=== PATIENT | female | born 1940 | race Caucasian/White ===

== ENCOUNTER → 2022-04-09 12:33 | Outpatient (BNVA) | payer MEDICARE, SELFPAY | PROVIDERS: PCP Family Medicine; Visit Provider Internal Medicine Endocrinology, Diabetes & Metabolism | DX: M81.0 Age-related osteoporosis without current pathological fracture (principal) | CPT/HCPCS: 99202 ==

== ENCOUNTER 2022-08-03 19:14 | Inpatient (IN) | payer OTHER, SELFPAY ==
--- OUTSIDE RECORDS SUMMARY | 2022-08-03 19:23 | XMS_ITS | Continuity of Care Document ---
:1940 Author Organization [facility] Address [address] [place] [address]- Care Team Providers Name Role Phone Radha ARMENDARIZ, Christian Primary Care Physician [place] [facility] [place]/25/21 - 08/28/[address] [address] Discharge Disposition: A-Transfer VNA/Home Health Attending Physician: Alyx Rutherford MD Admitting Physician: Romulo Vincent MD Referring Physician: Not on Staff, Referring MD Allergies, Adverse Reactions, Alerts Substance Reaction Severity Status codeine Active morphine1 Unavailable Active Vioxx Active Chocolate2 Active Other Food Allergy3 Active traMADol Active 1pt states allergy to [id number] and Butter - causes diarrhea Immunizations Given and Recorded Vaccine Date Status Refusal Reason SARS-CoV-2 (COVID-19) mRNA BNT-162b2 vac 07/31/20 Recorde d influenza virus vaccine, inactivated 04/27/17 Recorded influenza virus vaccine, inactivated 03/10/16 Recorded influenza virus vaccine, inactivated 03/29/14 Recorded influenza virus vaccine, inactivated 04/06/12 Recorded influenza virus vaccine, inactivated 04/08/11 Recorded influenza virus vaccine, inactivated 04/01/10 Recorded influenza virus vaccine, inactivated 04/13/08 Recorded pneumococcal 23-valent vaccine 05/08/15 Recorded Medications Azopt 1% ophthalmic suspension 1 drops, Eyes, Both, 3 times a day, 0 Refills, Maintenance, 10/03/18 21:37:27 EDT, Suspension Start Date: 10/03/18 Status: Orderedbrimonidine 0.025% ophthalmic solution 1 drops, Every 8 hours, PRN as needed, BOTH EYES, 0 Refills, Maintenance, 11/01/20 11:54:00 EDT, Solution, ; Start Date: 11/01/20 Status: Orderedcalcium-vitamin D 600 mg-400 intl units oral tablet TAKE ONE TABLET BY MOUTH DAILY Start Date: 08/26/21 Status: OrderedCombivent Respimat 20 mcg-100 mcg/inh inhalation aerosol 1 puffs, Inhalation, 4 times a day, PRN Wheezing/Shortness of Breath, Maintenance, 08/27/21 10:44:00EST, Aerosol, ; Start Date: 08/27/21 Status: OrderedDaily Gertrudis oral tablet 1 tablet, By Mouth, Daily, 0 Refills, Maintenance, 06/05/19 19:46:34 EST Start Date: 06/05/19 Status: OrderedDaily Gertrudis oral tablet 1 tablet, By Mouth, Daily, Maintenance, 08/27/21 10:52:00 EST, Tablet, ; Start Date: 08/27/21 Status: OrderedDilantin Infatabs 50 mg oral tablet, chewable 1 tablet = 50 mg, By Mouth, 2 times a day, Maintenance, 08/27/21 10:47:00 EST, Chew Tablet, ; Start Date: 08/27/21 Status: Ordereddivalproex sodium 250 mg oral enteric coated tablet 1 tablet = 250 mg, By Mouth, 2 times a day Start Date: 08/26/21 Status: Ordereddivalproex sodium 500 mg oral enteric coated tablet = 500 mg, By Mouth, 2 times a day, 0 Refills, Maintenance, 11/17/20 8:34:00 EDT, Tablet, ; Start Date: 11/17/20 Status: Orderedenoxaparin 80 mg/0.8 mL injectable solution = 80 mg, Subcutaneous Injection, Daily in AM Start Date: 08/26/21 Status: Orderedesomeprazole 20 mg oral enteric coated capsule TAKE ONE CAPSULE BY MOUTH EVERY DAY Start Date: 08/26/21 Status: Orderedfamotidine 20 mg oral tablet TAKE ONE TABLET BY MOUTH EVERY DAY DIRECTED Start Date: 08/26/21 Status: OrderedFlovent HFA 110 mcg/inh inhalation aerosol 2 puffs, Inhalation, 2 times a day, day Start Date: 08/26/21 Status: Orderedfluticasone 50 mcg/inh nasal spray 2 sprays, Nares, Both, Daily in AM, Maintenance, 08/27/21 10:50:00 EST, [place], ; Start Date: 08/27/21 Status: Orderedgabapentin 300 mg oral capsule 300 mg, 1, capsule, By Mouth, 3 times a day, # 90 capsule, Refills 5, Tot. Refills 5, Maintenance, 08/28/21 15:45:00 EST, Route to Pharmacy Electronically, [facility], Partial fill upon patient request if the prescription is for a schedu... Start Date: 08/28/21 Status: Orderedlatanoprost 0.005% ophthalmic solution 1 drops, Eyes, Both, Daily at bedtime, 0 Refills, Maintenance, 05/30/17 21:19:19 EST, Ophth Solution Start Date: 05/30/17 Status: Orderedlevothyroxine 150 mcg (0.15 mg) oral tablet 1 tablet = 150 mcg, By Mouth, Daily, 0 Refills, Maintenance, 12/23/13 11:51:23 EDT Start Date: 12/23/13 Status: Orderedlidocaine 5% topical film See Instructions, Topically Daily, # 30 patch, 0 Refills, Maintenance, 11/01/20 11:58:00 EDT, Patch,[facility], Topically Daily, 158, cm, 11/01/20 4:35:00 EDT, Height, 56.1, kg, 211:40:00 EDT, Dry Weight Start Date: 11/01/20 Status: Orderedloperamide 2 mg oral capsule 2 mg, 1, capsule, By Mouth, Daily, PRN, Refills 0, Maintenance, Loose Stool, 06/05/19 19:47:12 EST Start Date: 06/05/19 Status: OrderedNeurontin 100 mg oral capsule 200 mg, Capsule, By Mouth, 08/28/21 15:00:00 EST Start Date: 08/28/21 Stop Date: 08/28/21 Status: CompletedNeurontin 100 mg oral capsule 200 mg, Capsule, By Mouth, 08/28/21 9:00:00 EST Start Date: 08/28/21 Stop Date: 08/28/21 Status: CompletedrisperiDONE 0.5 mg oral tablet 0.5 mg, 1, tablet, By Mouth, 2 times a day Start Date: 08/26/21 Status: OrderedTylenol Extra Strength 500 mg oral tablet 1 tablet = 500 mg, By Mouth, Every 8 hours, # 50 tablet, 0 Refills, Maintenance, 08/28/21 15:41:00 EST, Tablet, [facility], Partial fill upon patient request if the prescription is for a schedule II opioid drug., 158, cm, 08/28/21 11:42:... Start Date: 08/28/21 Stop Date: 09/04/21 Status: OrderedVitamin B-12 1000 mcg oral tablet 1,000 mcg, 1, tablet, By Mouth, Daily, Refills 0, Maintenance, 06/05/19 19:46:01 EST Start Date: 06/05/19 Status: OrderedVitamin D3 1000 intl units oral capsule 1 capsule = 1,000 International_Units, By Mouth, Daily, 0 Refills, Maintenance, 06/05/19 19:48:40 EST Start Date: 06/05/19 Status: Ordered Problem List Condition Effective Dates Status Health Status Informant bipolar disorder with paranoid Active delusion(Confirmed) Epilepsy(Confirmed) Active epilepsy(Confirmed) Active Hypothyroidism(Confirmed) Active hypothyroidism(Confirmed) Active pulmonary embolus(Confirmed) Active Urinary retention(Confirmed) Active Underweight(Confirmed) Active urinary retention(Confirmed) Active Results Radiology Reports Exam Date Time Procedure Performing Provider Status 08/25/21 6:26 PM Chest 2 Views Frontal and Lat Jcarlos Quiñonez; Au th (Verified) Notes:(Chest 2 Views Frontal and Lat) Reason For Exam: Shortness of Breath RESULT: Chest 2 Views Frontal and Lat Chest 2 Views Frontal and Lat Hx of Present Illness: pt c o 10 10 cp that radiates to left arm and back x4days with some dyspnea on exertion; Reason: Shortness of Breath; Clinical Question(s): CHF COMPARISON: 06/05/2021 FINDINGS: LINES AND TUBES: None. LUNGS AND PLEURA: Clear lungs. Normal pulmonary vascularity. No pleural effusion. No pneumothorax. HEART, MEDIASTINUM AND PEREZ: Heart is normal in size. Normal upper mediastinal and hilar contour. BONES AND SOFT TISSUES: No acute abnormality. IMPRESSION: No acute abnormality. WSN: [id number] Ordering Physician: Nat Vargas Dictated By: Cain Almanzar MD Dictated Date/Time: 08/25/21 6:28 pm Reviewed By: Cain Almanzar MD Signed By: Cain Almanzar MD Signed Date/Time: 08/25/21 6:28 pm Transcribed By: ASHLEY Transcribed Date/Time: 08/25/21 6:28 pm Vital Signs Most recent to oldest 1 2 3 [Reference Range]: Height 158 cm 158 cm 158 cm (08/28/21 11:42 AM) (08/28/21 6:44 AM) (08/27/21 10 :41 PM) Weight 45 kg (08/26/21 12:32 PM) Oxygen Saturation [94-100 %] 95 % 97 % 97 % (08/28/21 11:42 AM) (08/28/21 6:44 AM) (08/27/21 10 :41 PM) Pulse Rate [55-90 bpm] 77 bpm 71 bpm 79 bpm (08/28/21 11:42 AM) (08/28/21 6:44 AM) (08/27/21 10 :41 PM) Body Mass Index [18.5-24.99] 18.26 *L* (08/26/21 12:32 PM) Blood Pressure [90-138/55-84 107/46 mm Hg 110/60 mm Hg 119 /71 mm Hg mm Hg] (08/28/21 11:42 AM) (08/28/21 6:44 AM) (08/27/21 10 :41 PM) Respiratory Rate [16-30 18 br/min 18 br/min 18 br/mi n br/min] (08/28/21 4:03 PM) (08/28/21 11:42 AM) (08/28/21 7: 47 AM) Temperature [96.8-100.4 97.8 DegF 97.5 DegF 97.2 Deg F DegF] (08/28/21 11:42 AM) (08/28/21 6:44 AM) (08/27/21 10 :41 PM) Mode of Delivery (Oxygen) Room air Room air Room a ir (08/28/21 11:42 AM) (08/28/21 6:44 AM) (08/27/21 10 :41 PM) Blood pressure sites Arm, right Arm, left Arm, left (08/28/21 11:42 AM) (08/28/21 6:44 AM) (08/27/21 10 :41 PM) Temperature Route Oral Oral Oral (08/28/21 11:42 AM) (08/28/21 6:44 AM) (08/27/21 10 :41 PM) Dry Weight 45 kg (08/26/21 12:32 PM) Social History Social History Type Response Smoking Status Never smoker entered on: 05/31/17 Sex Female
--- OUTSIDE RECORDS SUMMARY | 2022-08-03 19:23 | XMS_ITS | Continuity of Care Document ---
:1940 Author Organization [facility] Address [address] [place] [address]- Care Team Providers Name Role Phone Justo ARMENDARIZ, Vega Reid Primary Care Physician Encounter [facility] [place] Date(s): 01/29/21 - 02/28/21 [facility] [address] [place], [place] [address] Attending Physician: Ian Bo Admitting Physician: AdmtrIan Referring Physician: AdmtrIan Allergies, Adverse Reactions, Alerts Substance Reaction Severity Status codeine Active morphine1 Unavailable Active Vioxx Active traMADol Active 1pt states allergy to narcotics Medications acetaminophen 325 mg oral tablet 650 mg, By Mouth, Every 6 hours, PRN, /Headache, Refills 0, Maintenance, Pain , Mild, 10/12/18 11:12:08 EDT Start Date: 10/12/18 Status: OrderedAzopt 1% ophthalmic suspension 1 drops, Eyes, Both, 3 times a day, # 15 mL, 0 Refills, Maintenance, 10/03/18 21:37:27 EDT, Suspension Start Date: 10/03/18 Status: Orderedbrimonidine 0.025% ophthalmic solution 1 drops, Eye, Left, Every 8 hours, PRN as needed, # 7.5 mL, 0 Refills, Maintenance, 11/01/20 11:54:00 EDT, Solution, Partial fill upon patient request if the prescription is for a schedule II opioid drug. Start Date: 11/01/20 Status: OrderedCombivent Respimat 20 mcg-100 mcg/inh inhalation aerosol 1 puffs, Inhalation, 4 times a day, # 4 Gm, 0 Refills, Maintenance, 11/01/20 11:52:00 EDT, Aerosol, Partial fill upon patient request if the prescription is for a schedule II opioid drug. Start Date: 11/01/20 Status: OrderedDaily Gertrudis oral tablet By Mouth, Daily, 0 Refills, Maintenance, 06/05/19 19:46:34 EST Start Date: 06/05/19 Status: Ordereddivalproex sodium 250 mg oral enteric coated tablet = 250 mg, By Mouth, Daily at bedtime, 0 Refills, Maintenance, 11/17/20 8:34:00 EDT, Tablet, Partial fill upon patient request if the prescription is for a schedule II opioid drug. Start Date: 11/17/20 Status: Ordereddivalproex sodium 500 mg oral enteric coated tablet = 500 mg, By Mouth, 2 times a day, 0 Refills, Maintenance, 11/17/20 8:34:00 EDT, Tablet, Partial fill upon patient request if the prescription is for a schedule II opioid drug. Start Date: 11/17/20 Status: Orderedduloxetine 20 mg oral enteric coated capsule 1 capsule = 20 mg, By Mouth, Daily at bedtime, # 30 capsule, 0 Refills, Maintenance, 06/14/19 12:22:57 EST, Capsule, 160, cm, 06/14/19 7:21:40 EST, Height, 55.7, kg, 06/06/19 0:06:46 EST, Dry Weight Start Date: 06/14/19 Status: OrderedFlovent 110 mcg Inhaler HFA 1, puffs, Inhalation, 2 times a day, PRN, Refills 0, Maintenance, 11/01/20 11:48:00 EDT, Inhaler Start Date: 11/01/20 Status: Orderedfluticasone furoate 50 mcg inhalation powder 1 puffs = 50 mcg, Inhalation, Every 24 hours, rinse mouth and throat after use, # 90 each, 0 Refills, Maintenance, 11/01/20 11:48:00 EDT, Powder, Partial fill upon patient request if the prescription is for a schedule II opioid drug. Start Date: 11/01/20 Status: Orderedlatanoprost 0.005% ophthalmic solution 1 drops, Eyes, Both, Daily at bedtime, # 3 mL, 0 Refills, Maintenance, 05/30/17 21:19:19, Ophth Solution Start Date: 05/30/17 Status: Orderedlevothyroxine 150 mcg (0.15 mg) oral tablet 1 tablet = 150 mcg, By Mouth, Daily, 0 Refills, Maintenance, 12/23/13 11:51:23 Start Date: 12/23/13 Status: Orderedlidocaine 5% topical film See Instructions, Topically Daily, # 30 patch, 0 Refills, Maintenance, 11/01/20 11:58:00 EDT, Patch,[facility], Topically Daily, 158, cm, 11/01/20 4:35:00 EDT, Height, 56.1, kg, :40:00 EDT, Dry Weight Start Date: 11/01/20 Status: Orderedloperamide 2 mg oral capsule 2 mg, 1, capsule, By Mouth, Daily, PRN, Refills 0, Maintenance, Loose Stool, 06/05/19 19:47:12 EST Start Date: 06/05/19 Status: OrderedNeurontin 100 mg oral capsule See Instructions, 2 tablets in the morning 2 tablets in the evening 1 tablet at night, # 1 each, Refills 0, Tot. Refills 0, Maintenance, 10/12/18 11:12:24 EDT, Instructions Replace Required Details, Print Requisition Start Date: 10/12/18 Status: OrderedPhenytoin Tablet 150 mg, Chew, 2 times a day, Refills 0, Maintenance, 10/03/18 21:36:09 EDT Start Date: 10/03/18 Status: OrderedrisperiDONE 1 mg oral tablet 1 mg, 1, tablet, By Mouth, Daily in AM, Refills 0, Maintenance, 11/17/20 8:35:00 EDT, Partial fill upon patient request if the prescription is for a schedule II opioid drug. Start Date: 11/17/20 Status: OrderedrisperiDONE 1 mg oral tablet 2 mg, 2, tablet, By Mouth, Daily at bedtime, Refills 0, Maintenance, 11/17/20 8:35:00 EDT, Partial fill upon patient request if the prescription is for a schedule II opioid drug. Start Date: 11/17/20 Status: OrderedVitamin B-12 1000 mcg oral tablet [...] Active pulmonary embolus(Confirmed) Active Urinary retention(Confirmed) Active urinary retention(Confirmed) Active Social History Social History Type Response Smoking Status Never smoker entered on: 05/31/17 Sex Female
--- OUTSIDE RECORDS SUMMARY | 2022-08-03 19:23 | XMS_ITS | Continuity of Care Document ---
:1940 Author Organization [facility] Address [address] [place] [address]- Care Team Providers Name Role Phone Justo ARMENDARIZ, Vega Reid Primary Care Physician [place] [facility] [place] 12/[place]20 - 02/28/21 [facility] [address] [place], [place] [address] Attending Physician: Dayday Jacobsen MD Admitting Physician: Dayday Jacobsen MD Referring Physician: Floridalma MACHINIST, Maya Hurst Allergies, Adverse Reactions, Alerts Substance Reaction Severity Status codeine Active morphine1 Unavailable Active traMADol Active Vioxx Active 1pt states allergy to narcotics Medications [...] patch, 0 Refills, Maintenance, 11/01/20 11:58:00 EDT, Patch,[facility], Topically Daily, 158, cm, [...]
--- OUTSIDE RECORDS SUMMARY | 2022-08-03 19:23 | XMS_ITS | Continuity of Care Document ---
:1940 Author Organization [facility] Address Unavailable , Care Team Providers Name Role Phone Radha ARMENDARIZ, Christian Primary Care Physician Encounter [facility] [place] Date(s): 09/25/21 - 10/25/21 [facility] Allergies, Adverse Reactions, Alerts Substance Reaction Severity Status codeine Active morphine1 Unavailable Active Vioxx Active Chocolate2 Active Other Food Allergy3 Active traMADol Active 1pt states allergy to [id number] and Butter - causes diarrhea Immunizations Given [...] day Start Date: 08/26/21 Status: Ordereddivalproex sodium 250 mg oral enteric coated tablet 1 tablet = 250 mg, By Mouth, Daily at supper, # 7 tablet, 0 Refills, Maintenance, 10/12/21 11:35:00 EDT, EC Tablet, [facility], Partial fill upon patient request if the prescription is for a schedule II opioid drug., 158, cm, 08/28/21 11:42:... Start Date: 10/12/21 Stop Date: 10/19/21 Status: Ordereddivalproex sodium 500 mg oral enteric [...] Daily in AM, Maintenance, 08/27/21 10:50:00 EST, [place], ; Start Date: 08/27/21 Status: Orderedgabapentin 300 mg oral capsule 300 mg, 1, capsule, By Mouth, 3 times a day, # 90 capsule, Refills 5, Tot. Refills 5, Maintenance, 08/28/21 15:45:00 EST, Route to Pharmacy Electronically, [facility], Partial fill upon patient request if [...] patch, 0 Refills, Maintenance, 11/01/20 11:58:00 EDT, Patch,[facility], Topically Daily, 158, cm, 11/01/20 4:35:00 EDT, Height, 56.1, kg, :40:00 EDT, Dry Weight Start Date: 11/01/20 Status: Orderedloperamide 2 mg oral capsule 2 mg, 1, capsule, By Mouth, Daily, PRN, Refills 0, Maintenance, Loose Stool, 06/05/19 19:47:12 EST Start Date: 06/05/19 Status: Orderedphenytoin 50 mg oral tablet, chewable 3 tablet = 150 mg, By Mouth, 2 times a day, # 42 tablet, 0 Refills, Maintenance, 10/12/21 11:36:00 EDT, Chew Tablet, [facility], Partial fill upon patient request if the prescription is for aschedule II opioid drug., 158, cm, 08/28/21 11:42... Start Date: 10/12/21 Stop Date: 10/19/21 Status: OrderedrisperiDONE 0.5 mg oral tablet 0.5 mg, 1, tablet, By Mouth, 2 times a day Start Date: 08/26/21 Status: OrderedTylenol Extra Strength 500 mg oral tablet 1 tablet = 500 mg, By Mouth, Every 8 hours, # 50 tablet, 0 Refills, Maintenance, 08/28/21 15:41:00 EST, Tablet, [facility], Partial fill upon patient request if [...] retention(Confirmed) Active Underweight(Confirmed) Active urinary retention(Confirmed) Active Social History Social History Type Response Smoking Status Never smoker entered on: 05/31/17 Sex Female
--- OUTSIDE RECORDS SUMMARY | 2022-08-03 19:23 | XMS_ITS | Continuity of Care Document ---
:1940 Author Organization [facility] Address [address] [place] [address]- Care Team Providers Name Role Phone Christian Garcia MD Primary Care Physician Encounter [facility] [place] Date(s): 06/12/21 - 07/12/21 [facility] [address] [place], [place] [id number]- Attending Physician: Ian Bo Admitting Physician: Ian Bo Referring Physician: Ian Bo Allergies, Adverse Reactions, Alerts Substance Reaction Severity Status codeine Active aspirin Active morphine1 Unavailable Active traMADol Active Vioxx [...] EST, Dry Weight Start Date: 06/14/19 Status: Orderedenoxaparin 80 mg/0.8 mL injectable solution 0.8 mL = 80 mg, Subcutaneous Injection, Daily, # 16.8 mL, 0 Refills, Maintenance, 05/29/21 11:23:00 EST, Solution, Partial fill upon patient request if the prescription is for a schedule II opioid drug. Start Date: 05/29/21 Stop Date: 06/19/21 Status: OrderedFlovent 110 mcg Inhaler HFA 1, [...] patch, 0 Refills, Maintenance, 11/01/20 11:58:00 EDT, Patch,[facility], Topically Daily, 158, [...] Requisition Start Date: 10/12/18 Status: OrderedPhenytoin Tablet 200 mg, Chew, 2 times a day, Refills [...]
--- OUTSIDE RECORDS SUMMARY | 2022-08-03 19:23 | XMS_ITS | Continuity of Care Document ---
:1940 Author Organization [facility] Address [address] [place] [address]- Care Team Providers Name Role Phone Christian Garcia MD Primary Care Physician Encounter [facility] [place] Date(s): 10/12/21 - 10/12/[address] [address]- Encounter Diagnosis Medication refill (Final) - 10/12/21 Discharge Disposition: A-D/C Home Attending Physician: Melida Aquino MD Admitting Physician: Melida Aquino MD Referring Physician: Not on Staff, Referring MD Allergies, Adverse Reactions, Alerts Substance Reaction Severity Status codeine Active morphine1 Unavailable Active traMADol Active Vioxx Active Chocolate2 Active Other Food Allergy3 Active 1pt states allergy to [id number] and Butter - causes diarrhea Immunizations Given [...] Refills, Maintenance, 10/12/21 11:35:00 EDT, EC Tablet, [facility], Partial fill upon patient request if [...] Daily in AM, Maintenance, 08/27/21 10:50:00 EST, [place], ; Start Date: 08/27/21 Status: Orderedgabapentin 300 mg oral capsule 300 mg, 1, capsule, By Mouth, 3 times a day, # 90 capsule, Refills 5, Tot. Refills 5, Maintenance, 08/28/21 15:45:00 EST, Route to Pharmacy Electronically, [facility], Partial fill upon patient request if [...] patch, 0 Refills, Maintenance, 11/01/20 11:58:00 EDT, Patch,[facility], Topically Daily, 158, cm, 11/01/20 4:35:00 EDT, Height, 56.1, kg, 10/31/211:40:00 EDT, Dry Weight Start Date: 11/01/20 Status: Orderedloperamide 2 mg oral capsule 2 mg, 1, capsule, By Mouth, Daily, PRN, Refills 0, Maintenance, Loose Stool, 06/05/19 19:47:12 EST Start Date: 06/05/19 Status: Orderedphenytoin 50 mg oral tablet, chewable 3 tablet = 150 mg, By Mouth, 2 times a day, # 42 tablet, 0 Refills, Maintenance, 10/12/21 11:36:00 EDT, Chew Tablet, [facility], Partial fill upon patient request if [...] 0 Refills, Maintenance, 08/28/21 15:41:00 EST, Tablet, [facility], Partial fill upon patient request [...] retention(Confirmed) Active Underweight(Confirmed) Active urinary retention(Confirmed) Active Vital Signs Most recent to oldest 1 2 3 [Reference Range]: Oxygen Saturation [94-100 %] 99 % 100 % 100 % (10/12/21 2:57 PM) (10/12/21 12:01 PM) (10/12/21 9: 17 AM) Pulse Rate [55-90 bpm] 67 bpm 70 bpm 76 bpm (10/12/21 2:57 PM) (10/12/21 12:01 PM) (10/12/21 9: 17 AM) Blood Pressure [90-138/55-84 124/62 mm Hg 136/69 mm Hg 126 /57 mm Hg mm Hg] (10/12/21 2:57 PM) (10/12/21 12:01 PM) (10/12/21 9: 17 AM) Respiratory Rate [16-30 17 br/min 18 br/min 16 br/mi n br/min] (10/12/21 2:57 PM) (10/12/21 12:01 PM) (10/12/21 9: 17 AM) Temperature [96.8-100.4 DegF] 97.9 DegF 98.2 DegF (10/12/21 12:01 PM) (10/12/21 9:17 AM) Mode of Delivery (Oxygen) Room air Room air Room a ir (10/12/21 2:57 PM) (10/12/21 12:01 PM) (10/12/21 9: 17 AM) Blood pressure sites Arm, right (10/12/21 12:01 PM) Temperature Route Oral Oral (10/12/21 12:01 PM) (10/12/21 9:17 AM) Social History Social History Type Response Smoking Status Never smoker entered on: 05/31/17 Sex Female
--- OUTSIDE RECORDS SUMMARY | 2022-08-03 19:23 | XMS_ITS | Continuity of Care Document ---
:1940 Author Organization [facility] Address [address] [place] [address]- Care Team Providers Name Role Phone Christian Garcia MD Primary Care Physician Encounter [facility] [place] Date(s): 04/11/21 - 06/20/21 [facility] [address] [place], [place] [address] Attending Physician: Christian Garcia MD Admitting Physician: Christian Garcia MD Referring Physician: Christian Garcia MD Allergies, Adverse Reactions, Alerts Substance Reaction [...] 0 Refills, Maintenance, 11/01/20 11:58:00 EDT, Patch,[facility], Topically Daily, 158, cm, 11/01/20 4:35:00 [...]
--- OUTSIDE RECORDS SUMMARY | 2022-08-03 19:23 | XMS_ITS | Continuity of Care Document ---
:1940 Author Organization [facility] Address Unavailable , Care Team Providers Name Role Phone Christian Garcia MD Primary Care Physician [id number] Date(s): 06/27/21 - 11/27/21 [facility] Attending Physician: Severo Turcios Admitting Physician: Severo Turcios Referring Physician: Christian Garcia MD Allergies, Adverse Reactions, Alerts Substance Reaction Severity Status codeine Active morphine1 Unavailable Active Vioxx Active Chocolate2 Active Other Food Allergy3 Active traMADol Active 1pt states allergy to vwrahkltb1Jrananof3Twthvbxse and Butter - causes diarrhea Immunizations Given [...] Refills, Maintenance, 10/12/21 11:35:00 EDT, EC Tablet, [facility], Partial fill upon patient request if the [...] Daily in AM, Maintenance, 08/27/21 10:50:00 EST, [place], ; Start Date: 08/27/21 Status: Orderedgabapentin 300 mg oral capsule 300 mg, 1, capsule, By Mouth, 3 times a day, # 90 capsule, Refills 5, Tot. Refills 5, Maintenance, 08/28/21 15:45:00 EST, Route to Pharmacy Electronically, [facility], Partial fill upon patient [...] patch, 0 Refills, Maintenance, 11/01/20 11:58:00 EDT, Patch,[facility], Topically Daily, 158, cm, [...] Refills, Maintenance, 10/12/21 11:36:00 EDT, Chew Tablet, [facility], Partial fill upon patient request if the [...] 0 Refills, Maintenance, 08/28/21 15:41:00 EST, Tablet, [facility], Partial fill upon patient request if [...]
--- OUTSIDE RECORDS SUMMARY | 2022-08-03 19:23 | XMS_ITS | Continuity of Care Document ---
:1940 Author Organization [facility] Address [address] [place] [address]- Care Team Providers Name Role Phone Justo ARMENDARIZ, Vega Reid Primary Care Physician Encounter [facility] [place] Date(s): 11/10/20 - 11/11/[address] [address]- Discharge Disposition: A-D/C Home Attending Physician: Leah Najera MD Admitting Physician: Leah Najera MD Referring Physician: Not on Staff, Referring [...] 250 mg, By Mouth, 2 times a day, Take with 500 mg tab QHS, # 30 tablet, 0 Refills, Maintenance, 10/12/18 11:10:03 EDT, Tablet Start Date: 10/12/18 Status: Ordereddivalproex sodium 500 mg oral enteric coated tablet = 500 mg, By Mouth, 2 times a day, # 60 tablet, 0 Refills, Maintenance, 10/12/18 11:08:54 EDT, Tablet Start Date: 10/12/18 Status: Orderedduloxetine 20 mg oral enteric coated capsule 1 capsule = 20 mg, By Mouth, Daily at bedtime, # 30 capsule, 0 Refills, Maintenance, 06/14/19 12:22:57 EST, Capsule, 160, cm, 06/14/19 7:21:40 EST, Height, 55.7, kg, 06/06/19 0:06:46 EST, Dry Weight Start Date: 06/14/19 Status: Orderedenoxaparin 80 mg/0.8 mL injectable solution 0.8 mL = 80 mg, Subcutaneous Injection, Every 24 hours, for 12 week(s), # 67.2 mL, 0 Refills, Acute 01/24/21 11:59:00 EDT, 11/01/20 11:59:00 EDT, Injection, [facility], Partial fill upon patient request if the prescription is for a sched... Start Date: 11/01/20 Stop Date: 01/24/21 Status: OrderedFlovent 110 mcg Inhaler HFA 1, [...] patch, 0 Refills, Maintenance, 11/01/20 11:58:00 EDT, Patch,[facility], Topically Daily, 158, cm, 11/01/20 [...] 10/03/18 21:36:09 EDT Start Date: 10/03/18 Status: OrderedRisperDAL 0.5 mg oral tablet See Instructions, 1 tab QAM and 2 tab QHS, # 100 tablet, Refills 0, Tot. Refills 0, Maintenance, 06/14/19 12:19:40 EST, Instructions Replace Required Details, Route to Pharmacy Electronically, [facility]/pharmacy #[id number], 160, cm, 06/14/19 7:21:40 EST, Height,... Start Date: 06/14/19 Status: OrderedrisperiDONE 1 mg oral tablet 1 mg, 1, tablet, By Mouth, Daily in AM, # 30 tablet, Refills 1, Tot. Refills 1, Maintenance, 11/11/20 14:25:00 EDT, Route to Pharmacy Electronically, [facility], Partial fill upon patient request if the prescription is for a schedule II opio... Start Date: 11/11/20 Status: OrderedrisperiDONE 1 mg oral tablet 2 mg, 2, tablet, By Mouth, Daily at bedtime, # 60 tablet, Refills 1, Tot. Refills 1, Maintenance, 11/11/20 14:25:00 EDT, Route to Pharmacy Electronically, [facility], Partial fill upon patient request if the prescription is for a schedule II... Start Date: 11/11/20 Status: OrderedVitamin B-12 1000 mcg oral tablet 1,000 mcg, 1, tablet, By Mouth, Daily, Refills 0, Maintenance, 06/05/19 19:46:01 EST Start Date: 06/05/19 Status: OrderedVitamin D3 1000 intl units oral capsule 1 capsule = 1,000 International_Units, By Mouth, Daily, 0 Refills, Maintenance, 06/05/19 19:48:40 EST Start Date: 06/05/19 Status: Ordered Problem List Condition Effective Dates Status Health Status Informant Epilepsy(Confirmed) Active Hypothyroidism(Confirmed) Active Urinary retention(Confirmed) Active Results Radiology Reports Exam Date Time Procedure Performing Provider Status 11/10/20 1:34 PM Chest 2 Views Frontal and Lat Cinthya Grayson ; Auth (Verified) Notes:(Chest 2 Views Frontal and Lat) Reason For Exam: Pleuritic PainRESULT: Chest 2 Views Frontal and Lat Chest 2 Views Frontal and Lat HX OF PRESENT ILLNESS: Pt sts that she has bins in her apartment which the maintenance people comeand put chemicals or mouse traps in. She sts this gives her intermittent episodes of SOB and dizziness. Denies any symptoms at this time.; Reason: Pleuritic Pain; Clinical Question(s): Pleural Effusion/ Pleural Effusion COMPARISON: 11/08/2020 FINDINGS: LINES AND TUBES: None. LUNGS AND PLEURA: Clear lungs. Normal pulmonary vascularity. No pleural effusion. No pneumothorax. HEART, MEDIASTINUM AND PEREZ: Heart is normal in size. Mildly tortuous and calcified aorta. BONES AND SOFT TISSUES: No acute abnormality. IMPRESSION: No evidence of acute abnormality. WSN: [id number] Ordering Physician: Graham Denson Dictated By: Simon Roy MD Dictated Date/Time: 11/10/20 1:43 pm Reviewed By: Simon Roy MD Signed By: Simon Roy MD Signed Date/Time: 11/10/20 1:43 pm Transcribed By: ASHLEY Transcribed Date/Time: 11/10/20 1:43 pm Vital Signs Most recent to oldest 1 2 3 [Reference Range]: Oxygen Saturation [94-100 %] 99 % 98 % 99 % (11/11/20 4:20 PM) (11/11/20 12:30 PM) (11/11/20 8: 18 AM) Pulse Rate [55-90 bpm] 82 bpm 72 bpm 72 bpm (11/11/20 4:20 PM) (11/11/20 12:30 PM) (11/11/20 8: 18 AM) Blood Pressure [90-138/55-84 112/58 mm Hg 116/62 mm Hg 110 /58 mm Hg mm Hg] (11/11/20 4:20 PM) (11/11/20 12:30 PM) (11/11/20 8: 18 AM) Respiratory Rate [16-30 16 br/min 16 br/min 13 br/mi n br/min] (11/11/20 4:20 PM) (11/11/20 12:30 PM) *L* (11/11/20 8:18 AM ) Temperature [96.8-100.4 DegF] 97.9 DegF 97.7 DegF 98 .5 DegF (11/11/20 8:18 AM) (11/10/20 11:37 PM) (11/10/20 12:2 1 PM) Mode of Delivery (Oxygen) Room air Room air Room a ir (11/11/20 4:20 PM) (11/11/20 12:30 PM) (11/11/20 8: 18 AM) Blood pressure sites Arm, left Arm, left Arm, left (11/11/20 4:20 PM) (11/11/20 12:30 PM) (11/11/20 8: 18 AM) Temperature Route Oral Axillary Oral (11/11/20 8:18 AM) (11/10/20 11:37 PM) (11/10/20 12:2 1 PM) Weight Obtained Via UTO (11/10/20 12:26 PM) Dry Weight Obtained Via UTO (11/10/20 12:26 PM) Social History Social History Type Response Smoking Status Never smoker entered on: 05/31/17 Sex Female
--- OUTSIDE RECORDS SUMMARY | 2022-08-03 19:23 | XMS_ITS | Continuity of Care Document ---
:1940 Author Organization [facility] Address [address] [place] [address]- Care Team Providers Name Role Phone Christian Garcia MD Primary Care Physician Encounter [facility] [place] Date(s): 04/25/21 - 04/26/[address] [address]- Encounter Diagnosis Abdominal pain (Final) - 04/26/21 Discharge Disposition: A-D/C Home Attending Physician: Ara Nichole MD Admitting Physician: Ara Nichole MD Referring Physician: Not on Staff, Referring [...] II opioid drug. Start Date: 11/01/20 Status: Orderedgabapentin 100 mg oral capsule 200 mg, Capsule, By Mouth, Once, Routine, 04/26/21 20:00:00 EDT, Stop date 04/26/21 20:00:00 EDT Start Date: 04/26/21 Stop Date: 04/26/21 Status: Completedlatanoprost 0.005% ophthalmic solution 1 drops, Eyes, Both, [...] patch, 0 Refills, Maintenance, 11/01/20 11:58:00 EDT, Patch,[facility], Topically Daily, 158, cm, 11/01/20 4:35:00 [...] Active Urinary retention(Confirmed) Active urinary retention(Confirmed) Active Results Radiology Reports Exam Date Time Procedure Performing Provider Status 04/26/21 12:30 PM Chest 2 Views Frontal and Lat Evert Avelar da; Auth (Verified) Notes:(Chest 2 Views Frontal and Lat) Reason For Exam: AnginaRESULT: Chest 2 Views Frontal and Lat Chest 2 Views Frontal and Lat Hx of Present Illness: pt complains fo epigastric chest pain 3 days, COMPARISON: 11/13/2020 FINDINGS: LINES AND TUBES: None. LUNGS AND PLEURA: Clear lungs. Normal pulmonary vascularity. No pleural effusion. No pneumothorax. HEART, MEDIASTINUM AND PEREZ: Heart is normal in size. Normal upper mediastinal and hilar contour. BONES AND SOFT TISSUES: No acute abnormality. IMPRESSION: No acute abnormality. WSN: [id number] Ordering Physician: Ara Nichole Dictated By: López Hoover MD Dictated Date/Time: 04/26/21 1:42 pm Reviewed By: López Hoover MD Signed By: López Hoover MD Signed Date/Time: 04/26/21 1:42 pm Transcribed By: ASHLEY Transcribed Date/Time: 04/26/21 1:42 pm Vital Signs Most recent to oldest 1 2 3 [Reference Range]: Oxygen Saturation [94-100 100 % 100 % 99 % %] (04/26/21 6:44 PM) (04/26/21 4:20 PM) (04/26/21 2:39 PM) Pulse Rate [55-90 bpm] 75 bpm 77 bpm 72 bpm (04/26/21 6:44 PM) (04/26/21 4:20 PM) (04/26/21 2:39 PM) Blood Pressure 134/58 mm Hg 142/63 mm Hg 135/58 mm Hg [90-138/55-84 mm Hg] (04/26/21 6:44 PM) *H* ( 1 2:39 PM) (04/26/21 4:20 PM) Respiratory Rate [16-30 19 br/min 22 br/min 20 br/mi n br/min] (04/26/21 7:04 PM) (04/26/21 6:44 PM) (04/26/21 4:20 PM) Temperature [96.8-100.4 97.8 DegF 97.7 DegF 98.5 Deg F DegF] (04/26/21 6:44 PM) (04/26/21 2:39 PM) (04/26/21 10:59 AM) Mode of Delivery (Oxygen) Room air Room air Room a ir (04/26/21 6:44 PM) (04/26/21 4:20 PM) (04/26/21 2:39 PM) Blood pressure sites Arm, right Arm, right Arm, right (04/26/21 6:44 PM) (04/26/21 4:20 PM) (04/26/21 2:39 PM) Temperature Route Oral Oral Oral (04/26/21 6:44 PM) (04/26/21 2:39 PM) (04/26/21 10:59 AM) Social History Social History Type Response Smoking Status Never smoker entered on: 05/31/17 Sex Female
--- OUTSIDE RECORDS SUMMARY | 2022-08-03 19:23 | XMS_ITS | Continuity of Care Document ---
:1940 Author Organization [facility] Address [address] [place] [address]- Care Team Providers Name Role Phone Radha ARMENDARIZ, Christian Primary Care Physician Encounter [facility] [place] Date(s): 12/23/21 - 01/22/22 [facility] [address] [place] [place], [place] [address] Attending Physician: Ian Bo Admitting Physician: AdmtrIan Referring Physician: Admtr, [id number] Allergies, Adverse Reactions, Alerts Substance Reaction Severity Status codeine Active morphine1 Unavailable Active Chocolate2 Active traMADol Active Vioxx Active Other Food Allergy3 Active 1pt states allergy to pswpsyjpf1Ovmnsreo4Cghppufva and Butter - causes diarrhea Immunizations Given [...] Refills, Maintenance, 10/12/21 11:35:00 EDT, EC Tablet, [facility], Partial fill upon patient request [...] Daily in AM, Maintenance, 08/27/21 10:50:00 EST, [place], ; Start Date: 08/27/21 Status: Orderedgabapentin 300 mg oral capsule 300 mg, 1, capsule, By Mouth, 3 times a day, # 90 capsule, Refills 5, Tot. Refills 5, Maintenance, 08/28/21 15:45:00 EST, Route to Pharmacy Electronically, [facility], Partial fill upon patient request [...] patch, 0 Refills, Maintenance, 11/01/20 11:58:00 EDT, Patch,[facility], Topically Daily, 158, cm, 11/01/20 [...] Refills, Maintenance, 10/12/21 11:36:00 EDT, Chew Tablet, [facility], Partial fill upon patient request [...] 0 Refills, Maintenance, 08/28/21 15:41:00 EST, Tablet, [facility], Partial fill upon patient request [...]
--- OUTSIDE RECORDS SUMMARY | 2022-08-03 19:23 | XMS_ITS | Continuity of Care Document ---
:1940 Author Organization [facility] Address Unavailable , Care Team Providers Name Role Phone Christian Garcia MD Primary Care Physician [place] [facility] [place](s): 10/28/21 - 11/27/21 [facility] Attending Physician: Ian Bo Admitting Physician: Ian Bo Referring Physician: Ian Bo Allergies, Adverse Reactions, Alerts Substance Reaction Severity Status codeine Active morphine1 Unavailable Active Vioxx Active Chocolate2 Active Other Food Allergy3 Active traMADol Active 1pt states allergy to [id number] and Butter - causes diarrhea Immunizations Given [...] Refills, Maintenance, 10/12/21 11:35:00 EDT, EC Tablet, [facility], Partial fill upon patient request [...] Daily in AM, Maintenance, 08/27/21 10:50:00 EST, [place], ; Start Date: 08/27/21 Status: Orderedgabapentin 300 mg oral capsule 300 mg, 1, capsule, By Mouth, 3 times a day, # 90 capsule, Refills 5, Tot. Refills 5, Maintenance, 08/28/21 15:45:00 EST, Route to Pharmacy Electronically, [facility], Partial fill upon patient request if [...] patch, 0 Refills, Maintenance, 11/01/20 11:58:00 EDT, Patch,[facility], Topically Daily, 158, cm, 11/01/20 [...] Refills, Maintenance, 10/12/21 11:36:00 EDT, Chew Tablet, [facility], Partial fill upon patient request [...] 0 Refills, Maintenance, 08/28/21 15:41:00 EST, Tablet, [facility], Partial fill upon patient request if [...]
--- OUTSIDE RECORDS SUMMARY | 2022-08-03 19:23 | XMS_ITS | Continuity of Care Document ---
:1940 Author Organization [facility] Address [address] [place] [address]- Care Team Providers Name Role Phone Justo ARMENDARIZ, Vega Reid Primary Care Physician [place] [facility] [place](s): 11/13/20 - 11/17/[address] [address] Encounter Diagnosis Altered mental status (Final) - 11/13/20 Discharge Disposition: A-D/C Home Attending Physician: Smita Dallas MD Admitting Physician: Ivonne ARMENDARIZ, Luis Anderson Referring Physician: Not on Staff, Referring MD Allergies, Adverse Reactions, Alerts Substance Reaction Severity Status codeine Active morphine1 Unavailable Active Vioxx Active traMADol Active 1pt states allergy to narcotics Medications acetaminophen 325 mg oral tablet 650 mg, Tablet, By Mouth, Every 6 hours, PRN for Pain , Mild, Routine, 11/14/20 9:56:00 EDT Start Date: 11/14/20 Stop Date: 11/18/20 Status: Discontinuedacetaminophen 325 mg oral tablet 650 mg, By [...] 01/24/21 11:59:00 EDT, 11/01/20 11:59:00 EDT, Injection, [facility], Partial fill upon patient [...] patch, 0 Refills, Maintenance, 11/01/20 11:58:00 EDT, Patch,[facility], Topically Daily, 158, cm, 11/01/20 4:35:00 EDT, Height, 56.1, kg, :40:00 EDT, Dry Weight Start Date: 11/01/20 Status: Orderedloperamide 2 mg oral capsule 2 mg, 1, capsule, By Mouth, Daily, PRN, Refills 0, Maintenance, Loose Stool, 06/05/19 19:47:12 EST Start Date: 06/05/19 Status: OrderedNeurontin 100 mg oral capsule 200 mg, Capsule, By Mouth, 11/17/20 9:00:00 EDT Start Date: 11/17/20 Stop Date: 11/17/20 Status: CompletedNeurontin 100 mg oral capsule See Instructions, 2 [...] Exam Date Time Procedure Performing Provider Status 11/13/20 11:35 PM Chest Portable Merlin , Maura Kim (Verified ) Notes:(Chest Portable) Reason For Exam: Stroke, CQ CHF, Pneumonia;Other:RESULT: Chest Portable PROCEDURE: Chest Portable CLINICAL INDICATION: 80 years old Female with Reason: Other:; Stroke, CQ CHF, Pneumonia; Clinical Question(s): CHF. COMPARISON: Multiple chest radiographs 2019 through yesterday. FINDINGS: Portable AP erect view of the chest performed at 11:12 PM. Lines and tubes: Several EKG leads project over the chest. Lungs and pleura: Mild rotation of the patient to the LEFT. Skin folds project over the RIGHT hemithorax. Lungs clear as visualized. No pleural effusions.No evidence of pneumothorax. Heart, mediastinum and palmira: Mild unchanged tortuosity and calcification of the thoracic aorta noted. No cardiomegaly or pulmonary venous hypertension. Bones and soft tissues: Moderate osteopenia. Mild degenerative changes of the acromioclavicular and glenohumeral joints bilaterally. IMPRESSION: 1. Limited exam. No evidence of acute cardiopulmonary disease. Thank you for allowing me to participate in the care of this patient. WSN: [id number] Ordering Physician: Nat Bermeo Dictated By: Shad Glover MD Dictated Date/Time: 11/13/20 11:40 p Reviewed By: Shad Glover MD Signed By: Shad Glover MD Signed Date/Time: 11/13/20 11:40 pm Transcribed By: ASHLEY Transcribed Date/Time: 11/13/20 11:37 pm Vital Signs Most recent to oldest 1 2 3 [Reference Range]: Weight 52.9 kg (11/14/20 8:31 PM) Oxygen Saturation [94-100 %] 97 % 96 % 97 % (11/17/20 11:16 AM) (11/17/20 7:17 AM) (11/17/20 3: 31 AM) Pulse Rate [55-90 bpm] 83 bpm 73 bpm 74 bpm (11/17/20 11:16 AM) (11/17/20 7:17 AM) (11/17/20 3: 31 AM) Blood Pressure [90-138/55-84 107/48 mm Hg 111/59 mm Hg 117 /50 mm Hg mm Hg] (11/17/20 11:16 AM) (11/17/20 7:17 AM) (11/17/20 3: 31 AM) Respiratory Rate [16-30 14 br/min 14 br/min 18 br/mi n br/min] *L* *L* (11/17/20 11:16 A M) (11/17/20 12:08 PM) (11/17/20 12:08 PM) Temperature [96.8-100.4 98.1 DegF 98.1 DegF 98.3 Deg F DegF] (11/17/20 11:16 AM) (11/17/20 7:17 AM) (11/17/20 3: 31 AM) Mode of Delivery (Oxygen) Room air Room air Room a ir (11/17/20 11:16 AM) (11/17/20 7:17 AM) (11/17/20 3: 31 AM) Blood pressure sites Arm, right Arm, right Arm, right (11/17/20 11:16 AM) (11/17/20 7:17 AM) (11/17/20 3: 31 AM) Temperature Route Oral Oral Oral (11/17/20 11:16 AM) (11/17/20 7:17 AM) (11/17/20 3: 31 AM) Social History Social History Type Response Smoking Status Never smoker entered on: 05/31/17 Sex Female
--- OUTSIDE RECORDS SUMMARY | 2022-08-03 19:23 | XMS_ITS | Continuity of Care Document ---
:1940 Author Organization [facility] Address [address] [place] [address]- Care Team Providers Name Role Phone Radha ARMENDARIZ, Christian Primary Care Physician Encounter [facility] [place] Date(s): 01/23/22 - 01/28/[address] [address] Encounter Diagnosis Chest pain (Final) - 01/23/22 Discharge Disposition: A-D/C Home Attending Physician: Gabriel Hogue MD Admitting Physician: Clemente Tang MD Referring Physician: Not on Staff, Referring MD Allergies, Adverse Reactions, Alerts Substance Reaction Severity Status codeine Active Chocolate1 Active traMADol Active Lactose Diarrhea Active morphine2 Unavailable Active Vioxx Active Other Food Allergy3 Active 1Flaacmee3ea states allergy to [id number] and Butter - causes diarrhea Immunizations Given [...] Recorded pneumococcal 23-valent vaccine 05/08/15 Recorded Medications Artificial Tears preserved solution 2 drops, Eyes, Both, 2 times a day, PRN for dry eyes, # 30 mL, 0 Refills, Maintenance, 01/24/22 7:38:00 EDT, Solution, Partial fill upon patient request if the prescription is for a schedule II opioid drug. Start Date: 01/24/22 Status: OrderedAzopt 1% ophthalmic suspension 1 drops, [...] EST, Tablet, ; Start Date: 08/27/21 Status: Ordereddivalproex sodium 250 mg oral enteric coated tablet 1 tablet = 250 mg, By Mouth, Daily at supper, # 30 tablet, 0 Refills, Maintenance, 01/28/22 11:15:00EDT, EC Tablet, [facility], Partial fill upon patient request if the prescription is for aschedule II opioid drug., 158, cm, 08/28/21 11:42... Start Date: 01/28/22 Status: Ordereddivalproex sodium 500 mg oral enteric coated tablet = 500 mg, By Mouth, 2 times a day, # 60 tablet, 0 Refills, Maintenance, 01/28/22 11:15:00 EDT, Tablet, [facility], Partial fill upon patient request if the prescription is for a schedule II opioid drug., 158, cm, 08/28/21 11:42:00 EST, Heigh... Start Date: 01/28/22 Status: Orderedenoxaparin 40 mg/0.4 mL injectable solution 0.45 mL = 45 mg, Subcutaneous Injection, Every 12 hours, # 81 mL, 0 Refills, Maintenance, 01/28/22 11:16:00 EDT, Injection, [facility], Partial fill upon patient request if the prescription is for a schedule II opioid drug., 158, cm, ... Start Date: 01/28/22 Status: Orderedesomeprazole 20 mg oral enteric coated capsule 1 capsule = 20 mg, By Mouth, Daily, TAKE ONE CAPSULE BY MOUTH EVERY DAY, # 30 capsule, 0 Refills, Maintenance, 01/28/22 11:16:00 EDT, EC Capsule, [facility], Partial fill upon patient requestif the prescription is for a schedule II opioid d... Start Date: 01/28/22 Status: Orderedfamotidine 20 mg oral tablet TAKE ONE TABLET BY MOUTH EVERY DAY DIRECTED Start Date: 08/26/21 Status: OrderedFlovent HFA 220 mcg/inh inhalation aerosol 1 puffs = 220 mcg, Inhalation, 2 times a day, day, # 1 each, 0 Refills, Maintenance, 01/28/22 11:14:00 EDT, Aerosol, [facility], Partial fill upon patient request if the prescription is for aschedule II opioid drug., 158, cm, 08/28/21 11:42... Start Date: 01/28/22 Status: Orderedfluticasone 50 mcg/inh nasal spray 2 sprays, Nares, Both, Daily in AM, Maintenance, 08/27/21 10:50:00 EST, [place], ; Start Date: 08/27/21 Status: Orderedgabapentin 300 mg oral capsule 300 mg, Capsule, By Mouth, 01/28/22 9:00:00 EDT Start Date: 01/28/22 Stop Date: 01/28/22 Status: Completedgabapentin 300 mg oral capsule 300 mg, 1, capsule, By Mouth, 3 times a day, # 90 capsule, Refills 5, Tot. Refills 5, Maintenance, 01/28/22 11:16:00 EDT, Route to Pharmacy Electronically, [facility], Partial fill upon patient request if the prescription is for a schedule I... Start Date: 01/28/22 Status: Orderedlatanoprost 0.005% ophthalmic solution 1 drops, Eyes, Both, Daily at bedtime, 0 Refills, Maintenance, 05/30/17 21:19:19 EST, Ophth Solution Start Date: 05/30/17 Status: Orderedlevothyroxine 150 mcg (0.15 mg) oral tablet 1 tablet = 150 mcg, By Mouth, Daily, # 30 tablet, 0 Refills, Maintenance, 01/28/22 11:17:00 EDT, Tablet, [facility], Partial fill upon patient request if the prescription is for a schedule IIopioid drug., 158, cm, 08/28/21 11:42:00 EST, Hei... Start Date: 01/28/22 Status: Orderedlidocaine 0.5% topical gel 1 application, Topically, 3 times a day, # 120 Gm, 0 Refills, Maintenance, 01/28/22 11:19:00 EDT, Gel, [facility], Partial fill upon patient request if the prescription is for a schedule II opioid drug., 1 application Topically 3 times a day... Start Date: 01/28/22 Status: Orderedlidocaine 5% topical film See Instructions, Topically Daily, # 30 patch, 0 Refills, Maintenance, 01/28/22 11:19:00 EDT, Patch,[facility], Topically Daily, 158, cm, 08/28/21 11:42:00 EST, Height, 45, kg, 08/26/21 18:30:00 EST, Dry Weight Start Date: 01/28/22 Status: Orderedloperamide 2 mg oral capsule 2 mg, 1, capsule, By Mouth, Every 4 hours, PRN, # 30 capsule, Refills 0, Tot. Refills 0, Maintenance, Loose Stool, 01/28/22 11:17:00 EDT, Route to Pharmacy Electronically, [facility], Partialfill upon patient request if the prescription is... Start Date: 01/28/22 Status: Orderedmagnesium oxide 400 mg oral tablet 1 tablet = 400 mg, By Mouth, Daily, # 14 tablet, 0 Refills, Maintenance, 01/28/22 11:17:00 EDT, Tablet, [facility], Partial fill upon patient request if the prescription is for a schedule II opioid drug., 158, cm, 08/28/21 11:42:00 EST, Heig... Start Date: 01/28/22 Stop Date: 02/11/22 Status: Orderedphenytoin 50 mg oral tablet, chewable 3 tablet = 150 mg, By Mouth, 2 times a day, # 180 tablet, 0 Refills, Maintenance, 01/28/22 11:18:00 EDT, Chew Tablet, [facility], Partial fill upon patient request if the prescription is for a schedule II opioid drug., 158, cm, 08/28/21... Start Date: 01/28/22 Status: OrderedrisperiDONE 0.5 mg oral tablet TAKE 1 TABLET BY MOUTH IN THE MORNING AND TAKE 2 TABLETS BY MOUTH AT NIGHT Start Date: 01/24/22 Status: OrderedTylenol Extra Strength 500 mg oral tablet 1 tablet = 500 mg, By Mouth, Every 8 hours, # 50 tablet, 0 Refills, Maintenance, 01/28/22 11:19:00 EDT, Tablet, [facility], Partial fill upon patient request if the prescription is for a schedule II opioid drug., 158, cm, 08/28/21 11:42:... Start Date: 01/28/22 Stop Date: 02/04/22 Status: OrderedVitamin B-12 1000 mcg oral tablet 1,000 mcg, 1, tablet, By Mouth, Daily, Refills 0, Maintenance, 06/05/19 19:46:01 EST Start Date: 06/05/19 Status: OrderedVitamin B-12 1000 mcg oral tablet 1,000 mcg, 1, tablet, By Mouth, Daily, # 30 tablet, Refills 0, Maintenance, 01/24/22 7:35:00 EDT, Partial fill upon patient request if the prescription is for a schedule II opioid drug. Start Date: 01/24/22 Status: OrderedVitamin D3 1000 intl units oral capsule 1 capsule = 1,000 International_Units, By Mouth, Daily, 0 Refills, Maintenance, 06/05/19 19:48:40 EST Start Date: 06/05/19 Status: OrderedVitamin D3 1000 intl units oral capsule 1 capsule = 25 mcg, By Mouth, Daily, # 100 capsule, 0 Refills, Maintenance, 01/24/22 7:37:00 EDT, Capsule, Partial fill upon patient request if the prescription is for a schedule II opioid drug. Start Date: 01/24/22 Status: Ordered Problem List Condition Effective Dates Status Health Status Informant bipolar disorder with paranoid Active delusion(Confirmed) Chest pain(Confirmed) Active Epilepsy(Confirmed) Active epilepsy(Confirmed) Active Hypothyroidism(Confirmed) Active hypothyroidism(Confirmed) Active pulmonary embolus(Confirmed) Active Urinary retention(Confirmed) Active Underweight(Confirmed) Active urinary retention(Confirmed) Active Results Radiology Reports Exam Date Time Procedure Performing Provider Status 01/26/22 8:51 AM Abdomen AP Clair Ojeda; Auth (Verifie d) Notes:(Abdomen AP) Reason For Exam: Foreign Body Check for MRIRESULT: XR Abdomen AP XR Abdomen AP 1 view INDICATION/CLINICAL QUESTION: Reason: Foreign Body Check for MRI COMPARISON: Abdominal radiograph, 12/28/2010. CT abdomen and pelvis, 08/27/2021. FINDINGS: Large volume retained stool. Otherwise normal bowel gas pattern. No evidence of obstruction. No evidence of pneumoperitoneum. No organomegaly or masses. Cholecystectomy clips in the right upper quadrant. Rounded phleboliths inthe pelvis. No acute bone findings. Degenerative changes of the spine. Right hip arthroplasty. IMPRESSION: 1. Large volume retained stool. 2. Metallic cholecystectomy clips and right hip arthroplasty. No contraindication to MRI. WSN: [id number] Ordering Physician: Eduardo Alfredo MD Dictated By: Ana García MD Dictated Date/Time: 01/26/22 4:56 pm Reviewed By: Ana García MD Signed By: Ana García MD Signed Date/Time: 01/26/22 4:56 pm Transcribed By: ASHLEY Transcribed Date/Time: 01/26/22 4:51 pm Exam Date Time Procedure Performing Provider Status 01/26/22 8:51 AM Skull Ltd < 4 Views Clair Ojeda; Auth (Hannah ified) Notes:(Skull Ltd < 4 Views) Reason For Exam: Foreign Body Check for MRIRESULT: Skull Ltd < 4 Views Skull Ltd < 4 Views INDICATION: Reason: Foreign Body Check for MRI COMPARISON: None FINDINGS: No radiopaque foreign body is seen. No fractures or bone lesions. Normal sutures. Grossly clear sinuses. Normal soft tissues. Partial visualization of degenerative changes of the cervical spine. IMPRESSION: No metallic foreign body. WSN: [id number] Ordering Physician: Eduardo Alfredo MD Dictated By: Ana García MD Dictated Date/Time: 01/26/22 4:51 pm Reviewed By: Ana García MD Signed By: Ana García MD Signed Date/Time: 01/26/22 4:51 pm Transcribed By: ASHLEY Transcribed Date/Time: 01/26/22 4:49 pm Exam Date Time Procedure Performing Provider Status 01/24/22 1:09 AM Chest 2 Views Frontal and Lat Isela Chapa ; Auth (Verified) Notes:(Chest 2 Views Frontal and Lat) Reason For Exam: AnginaRESULT: Chest 2 Views Frontal and Lat Chest 2 Views Frontal and Lat Reason: Angina; Clinical Question(s): CHF COMPARISON: 08/25/2021. FINDINGS: LINES AND TUBES: None. LUNGS AND PLEURA: Mildly increased interstitial markings, concerning for mild interstitial pulmonary edema. No focal consolidation. No pleural effusion. No pneumothorax. HEART, MEDIASTINUM AND PEREZ: Heart is normal in size. Aorta is somewhat tortuous. BONES AND SOFT TISSUES: No acute abnormality. Diffuse degenerative changes. IMPRESSION: Increased interstitial markings, concerning for developing interstitial pulmonary edema. WSN: [id number] Ordering Physician: Michael Houston Dictated By: Michael Mojica MD Dictated Date/Time: 01/24/22 10:35 a Reviewed By: Michael Mojica MD Signed By: Michael Mojica MD Signed Date/Time: 01/24/22 10:35 am Transcribed By: ASHLEY Transcribed Date/Time: 01/24/22 10:28 am Vital Signs Most recent to oldest 1 2 3 [Reference Range]: Oxygen Saturation [94-100 %] 99 % 97 % 96 % (01/28/22 7:19 AM) (01/28/22 3:19 AM) (01/27/22 7:5 1 PM) Pulse Rate [55-90 bpm] 77 bpm 79 bpm 78 bpm (01/28/22 7:19 AM) (01/28/22 3:19 AM) (01/27/22 7:5 1 PM) Blood Pressure [90-138/55-84 mm 111/64 mm Hg 109/57 mm Hg 125/75 mm Hg Hg] (01/28/22 7:19 AM) (01/28/22 3:19 AM) (01/27/22 7:5 1 PM) Respiratory Rate [16-30 br/min] 18 br/min 18 br/min 18 br/min (01/28/22 9:45 AM) (01/28/22 8:45 AM) (01/28/22 7:1 9 AM) Temperature [96.8-100.4 DegF] 97.6 DegF 97.6 DegF 98 .0 DegF (01/28/22 7:19 AM) (01/28/22 3:19 AM) (01/27/22 7:5 1 PM) Mode of Delivery (Oxygen) Nasal cannula Room air Room a ir (01/28/22 7:19 AM) (01/28/22 3:19 AM) (01/27/22 7:5 1 PM) Blood pressure sites Arm, left Arm, left Arm, left (01/28/22 7:19 AM) (01/28/22 3:19 AM) (01/27/22 7:5 1 PM) Temperature Route Temporal Temporal Temporal (01/28/22 7:19 AM) (01/28/22 3:19 AM) (01/27/22 7:5 1 PM) Social History Social History Type Response Smoking Status Never smoker entered on: 05/31/17 Sex Female
--- OUTSIDE RECORDS SUMMARY | 2022-08-03 19:23 | XMS_ITS | Continuity of Care Document ---
:1940 Author Organization [facility] Address [address] [place] [address]- Care Team Providers Name Role Phone Justo ARMENDARIZ, Vega Reid Primary Care Physician Encounter [facility] [place] Date(s): 11/08/20 - 11/08/[address] [address]- Encounter Diagnosis Shortness of breath (Final) - 11/08/20 Discharge Disposition: A-D/C Home Attending Physician: Mark Corona MD Admitting Physician: Mark Corona MD Referring Physician: Not on Staff, Referring [...] 01/24/21 11:59:00 EDT, 11/01/20 11:59:00 EDT, Injection, [facility], Partial fill upon patient [...] patch, 0 Refills, Maintenance, 11/01/20 11:58:00 EDT, Patch,[facility] 3, Topically Daily, 158, cm, 11/01/20 4:35:00 [...] Replace Required Details, Route to Pharmacy Electronically, [facility]/pharmacy #[id number], 160, cm, 06/14/19 7:21:40 EST, Height,... Start Date: 06/14/19 Status: OrderedVitamin B-12 1000 mcg oral tablet [...] Exam Date Time Procedure Performing Provider Status 11/08/20 11:55 AM Chest Portable Georgia Allen; Judy (Verif ied) Notes:(Chest Portable) Reason For Exam: Shortness of BreathRESULT: Chest Portable Chest Portable Hx of Present Illness: pt from independent living, reports feeling SOB this morning and her legs feel swollen, there are odors in my house , recent PE dx, states she has been getting a shot in my belly every morning , denies CP, dizziness, or nausea; Reason: Shortness of Breath; Clinical Question(s): CHF COMPARISON: Chest radiograph dated 10/30/2020 FINDINGS: LINES AND TUBES: None. LUNGS AND PLEURA: Clear lungs. Normal pulmonary vascularity. No pleural effusion. No pneumothorax. HEART, MEDIASTINUM AND PEREZ: Heart is normal in size. Aorta is tortuous and partially calcified. BONES AND SOFT TISSUES: No acute abnormality. IMPRESSION: No acute abnormality. WSN: [id number] Ordering Physician: Barb Smith Dictated By: Alison Clayton MD Dictated Date/Time: 11/08/20 12:13 p Reviewed By: Alison Clayton MD Signed By: Alison Clayton MD Signed Date/Time: 11/08/20 12:13 pm Transcribed By: ASHLEY Transcribed Date/Time: 11/08/20 12:12 pm Vital Signs Most recent to oldest [Reference 1 2 3 Range]: Oxygen Saturation [94-100 %] 98 % 99 % 97 % (11/08/20 4:12 PM) (11/08/20 2:16 PM) (11/08/20 11:53 AM) Pulse Rate [55-90 bpm] 65 bpm 68 bpm 68 bpm (11/08/20 4:12 PM) (11/08/20 2:16 PM) (11/08/20 11:53 AM) Blood Pressure [90-138/55-84 mm 111/77 mm Hg 131/73 mm Hg 108/53 mm Hg Hg] (11/08/20 4:12 PM) (11/08/20 2:16 PM) (11/08/20 11:53 AM) Respiratory Rate [16-30 br/min] 20 br/min 20 br/min 20 br/min (11/08/20 4:12 PM) (11/08/20 2:16 PM) (11/08/20 11:53 AM) Temperature [96.8-100.4 DegF] 98.2 DegF 97.9 DegF 97 .5 DegF (11/08/20 2:16 PM) (11/08/20 11:53 AM) (11/08/20 10:54 AM) Mode of Delivery (Oxygen) Room air Room air Room a ir (11/08/20 2:16 PM) (11/08/20 11:53 AM) (11/08/20 10:54 AM) Temperature Route Oral Oral Oral (11/08/20 2:16 PM) (11/08/20 11:53 AM) (11/08/20 10:54 AM) Social History Social History Type Response Smoking Status Never smoker entered on: 05/31/17 Sex
--- OUTSIDE RECORDS SUMMARY | 2022-08-03 19:23 | XMS_ITS | Continuity of Care Document ---
:1940 Author Organization [facility] Address [address] [place] [address]- Care Team Providers Name Role Phone Radah ARMENDARIZ, Christian Primary Care Physician Encounter [facility] [place] Date(s): 05/21/21 - 06/20/21 [facility] [address] [place], [place] [address] Attending Physician: Ian Bo Admitting Physician: Admtr, [id number] Referring Physician: Admtr, [id number] Allergies, Adverse Reactions, Alerts Substance Reaction Severity Status codeine Active aspirin Active morphine1 Unavailable Active Vioxx Active traMADol [...] patch, 0 Refills, Maintenance, 11/01/20 11:58:00 EDT, Patch,[facility], Topically Daily, 158, cm, 11/01/20 [...]
--- OUTSIDE RECORDS SUMMARY | 2022-08-03 19:23 | XMS_ITS | Continuity of Care Document ---
:1940 Author Organization [facility] Address [address] [place] [address]- Care Team Providers Name Role Phone Justo ARMENDARIZ, Vega Reid Primary Care Physician [place] [facility] [place] Date[place]s): 11/11/20 - 11/12/[address] [address]- Encounter Diagnosis Psychiatric disorder (Final) - 11/12/20 Discharge Disposition: A-D/C Home Attending Physician: Neal Hood MD Admitting Physician: Neal Hood MD Referring Physician: Not on Staff, Referring [...] 01/24/21 11:59:00 EDT, 11/01/20 11:59:00 EDT, Injection, [facility], Partial fill upon patient request [...] patch, 0 Refills, Maintenance, 11/01/20 11:58:00 EDT, Patch,[facility] 3, Topically Daily, 158, cm, 11/01/20 4:35:00 [...] Replace Required Details, Route to Pharmacy Electronically, [facility]/pharmacy #[id number], 160, cm, 06/14/19 7:21:40 EST, Height,... Start Date: 06/14/19 Status: OrderedrisperiDONE 1 mg oral tablet 1 mg, 1, tablet, By Mouth, Daily in AM, # 30 tablet, Refills 1, Tot. Refills 1, Maintenance, 11/11/20 14:25:00 EDT, Route to Pharmacy Electronically, [facility], Partial fill upon patient request if the prescription is for a schedule II opio... Start Date: 11/11/20 Status: OrderedrisperiDONE 1 mg oral tablet 2 mg, 2, tablet, By Mouth, Daily at bedtime, # 60 tablet, Refills 1, Tot. Refills 1, Maintenance, 11/11/20 14:25:00 EDT, Route to Pharmacy Electronically, [facility], Partial fill upon patient request if the [...] Exam Date Time Procedure Performing Provider Status 11/12/20 9:39 AM Chest 2 Views Frontal and Lat Jorge , Sherine; Au th (Verified) Notes:(Chest 2 Views Frontal and Lat) Reason For Exam: Shortness of Breath, Fever;Other:RESULT: Chest 2 Views Frontal and Lat Examination: Chest performed on 11/12/2020. History: Shortness of breath and dehydration. Findings: Frontal and lateral views of the chest are compared to a prior study dated 11/10/2020. The cardiac and mediastinal silhouettes are within normal limits. Ectasia of the aorta is noted. Thelungs are clear. The osseous and soft tissue structures are unremarkable. Impression: There is no acute cardiopulmonary disease. WSN: [id number] Ordering Physician: Gricelda Ramírez Dictated By: Sandy Reid MD Dictated Date/Time: 11/12/20 9:53 am Reviewed By: Sandy Reid MD Signed By: Sandy Reid MD Signed Date/Time: 11/12/20 9:53 am Transcribed By: ASLHEY Transcribed Date/Time: 11/12/20 9:53 am Vital Signs Most recent to oldest 1 2 3 [Reference Range]: Oxygen Saturation [94-100 %] 99 % 98 % 98 % (11/12/20 4:56 PM) (11/12/20 3:59 PM) (11/12/20 12: 18 PM) Pulse Rate [55-90 bpm] 76 bpm 77 bpm 72 bpm (11/12/20 4:56 PM) (11/12/20 3:59 PM) (11/12/20 12: 18 PM) Blood Pressure [90-138/55-84 118/69 mm Hg 117/57 mm Hg 144 /78 mm Hg mm Hg] (11/12/20 4:56 PM) (11/12/20 3:59 PM) *H* (11/12/20 12:18 P M) Respiratory Rate [16-30 16 br/min 16 br/min 16 br/mi n br/min] (11/12/20 4:56 PM) (11/12/20 3:59 PM) (11/12/20 12: 18 PM) Temperature [96.8-100.4 DegF] 97.8 DegF 97.8 DegF 97 .7 DegF (11/12/20 4:56 PM) (11/12/20 3:59 PM) (11/12/20 12: 18 PM) Mode of Delivery (Oxygen) Room air Room air Room a ir (11/12/20 4:56 PM) (11/12/20 3:59 PM) (11/12/20 12: 18 PM) Blood pressure sites Arm, left Arm, left Arm, left (11/12/20 4:56 PM) (11/12/20 3:59 PM) (11/12/20 12: 18 PM) Temperature Route Oral Oral Oral (11/12/20 4:56 PM) (11/12/20 3:59 PM) (11/12/20 12: 18 PM) Social History Social History Type Response Smoking Status Never smoker entered on: 05/31/17 Sex Female
--- OUTSIDE RECORDS SUMMARY | 2022-08-03 19:23 | XMS_ITS | Continuity of Care Document ---
:1940 Author Organization [facility] Address [address] [place] [address]- Care Team Providers Name Role Phone Vega Kemp MD Primary Care Physician Encounter [facility] [place] Date(s): 11/08/20 - 11/09/[address] [address]- Encounter Diagnosis Headache (Final) - 11/08/20 Discharge Disposition: A-D/C Home Attending Physician: Bradley Hendrix MD Admitting Physician: Bradley Hendrix MD Referring Physician: Not on Staff, Referring [...] 01/24/21 11:59:00 EDT, 11/01/20 11:59:00 EDT, Injection, [facility], Partial fill upon patient [...] oral capsule 200 mg, Capsule, By Mouth, 11/09/20 9:00:00 EDT Start Date: 11/09/20 Stop Date: 11/09/20 Status: Completedlatanoprost 0.005% ophthalmic solution 1 drops, [...] patch, 0 Refills, Maintenance, 11/01/20 11:58:00 EDT, Patch,[facility], Topically Daily, 158, cm, 11/01/20 4:35:00 [...] Replace Required Details, Route to Pharmacy Electronically, [facility]/pharmacy #[id number], 160, cm, 06/14/19 7:21:40 EST, Height,... [...] Epilepsy(Confirmed) Active Hypothyroidism(Confirmed) Active Urinary retention(Confirmed) Active Vital Signs Most recent to oldest [Reference 1 2 3 Range]: Oxygen Saturation [94-100 %] 96 % 98 % 100 % (11/09/20 3:36 PM) (11/09/20 10:13 AM) (11/09/20 7:40 AM) Pulse Rate [55-90 bpm] 87 bpm 75 bpm 65 bpm (11/09/20 3:36 PM) (11/09/20 10:13 AM) (11/09/20 7:40 AM) Blood Pressure [90-138/55-84 mm 107/50 mm Hg 115/59 mm Hg 113/56 mm Hg Hg] (11/09/20 3:36 PM) (11/09/20 10:13 AM) (11/09/20 7:40 AM) Respiratory Rate [16-30 br/min] 16 br/min 18 br/min 18 br/min (11/09/20 3:36 PM) (11/09/20 10:13 AM) (11/09/20 10:08 AM) Temperature [96.8-100.4 DegF] 98.4 DegF 98.5 DegF (11/09/20 7:40 AM) (11/08/20 11:18 PM) Mode of Delivery (Oxygen) Room air Room air Room a ir (11/09/20 3:36 PM) (11/09/20 10:13 AM) (11/09/20 7:40 AM) Temperature Route Oral Oral (11/09/20 7:40 AM) (11/08/20 11:18 PM) Social History Social History Type Response Smoking Status Never smoker entered on: 05/31/17 Sex
--- OUTSIDE RECORDS SUMMARY | 2022-08-03 19:23 | XMS_ITS | Continuity of Care Document ---
:1940 Author Organization [facility] Address [address] [place] [address]- Care Team Providers Name Role Phone Christian Garcia MD Primary Care Physician Encounter [facility] [place] Date(s): 06/05/21 - 06/05/[address] [address]- Encounter Diagnosis Chest pain, non-cardiac (Final) - 06/05/21 Discharge Disposition: A-D/C Home Attending Physician: Lou Hernandez MD Admitting Physician: Lou Hernandez MD Referring Physician: Not on Staff, Referring [...] patch, 0 Refills, Maintenance, 11/01/20 11:58:00 EDT, Patch,[facility] 3, Topically Daily, 158, cm, 11/01/20 4:35:00 [...] Exam Date Time Procedure Performing Provider Status 06/05/21 2:50 AM Chest 2 Views Frontal and Lat Daryn Osullivan (Verified) Notes:(Chest 2 Views Frontal and Lat) Reason For Exam: Chest Pain;Other:RESULT: Chest 2 Views Frontal and Lat Chest 2 Views Frontal and Lat INDICATION: Left sided, reproducible chest pain 2-3 times a night for one month. COMPARISON: Prior chest radiographs most recent 05/29/2021. CTA chest 10/30/2020. FINDINGS: LINES AND TUBES: None. LUNGS AND PLEURA: Clear lungs. Normal pulmonary vascularity. No pleural effusion. No pneumothorax. HEART, MEDIASTINUM AND PEREZ: Heart is normal in size. Normal upper mediastinal and hilar contour. BONES AND SOFT TISSUES: No acute abnormality. Degenerative changes of the spine. IMPRESSION: No acute abnormality. I have personally reviewed the images and I agree with this report. WSN: [id number] Ordering Physician: Sara Melton Dictated By: Jenn Saldana MD Dictated Date/Time: 06/05/21 8:22 am Reviewed By: Danny Vazquez MD Signed By: Danny Vazquez MD Signed Date/Time: 06/05/21 8:27 am Transcribed By: ASHLEY Transcribed Date/Time: 06/05/21 8:16 am Vital Signs Most recent to oldest 1 2 3 [Reference Range]: Height 158 cm 158 cm 158 cm (06/05/21 3:00 PM) (06/05/21 12:19 PM) (06/05/21 9: 33 AM) Weight 45 kg 45 kg (06/05/21 3:00 PM) (06/05/21 12:19 PM) Oxygen Saturation [94-100 100 % 99 % 98 % %] (06/05/21 3:00 PM) (06/05/21 12:14 PM) (06/05/21 9: 33 AM) Pulse Rate [55-90 bpm] 78 bpm 75 bpm 79 bpm (06/05/21 3:00 PM) (06/05/21 12:14 PM) (06/05/21 9: 33 AM) Blood Pressure 134/68 mm Hg 126/47 mm Hg 126/60 mm Hg [90-138/55-84 mm Hg] (06/05/21 3:00 PM) (06/05/21 12:14 PM) ( 9:33 AM) Respiratory Rate [16-30 16 br/min 18 br/min 16 br/mi n br/min] (06/05/21 3:00 PM) (06/05/21 12:14 PM) (06/05/21 9: 33 AM) Temperature [96.8-100.4 97.8 DegF 98.4 DegF 98.8 Deg F DegF] (06/05/21 3:00 PM) (06/05/21 12:14 PM) (06/05/21 9: 33 AM) Mode of Delivery (Oxygen) Room air Room air Room a ir (06/05/21 3:00 PM) (06/05/21 12:14 PM) (06/05/21 9: 33 AM) Blood pressure sites Arm, right Arm, right Arm, left (06/05/21 3:00 PM) (06/05/21 12:14 PM) (06/05/21 9: 33 AM) Temperature Route Oral Oral Oral (06/05/21 3:00 PM) (06/05/21 12:14 PM) (06/05/21 9: 33 AM) Dry Weight 45 kg 45 kg (06/05/21 3:00 PM) (06/05/21 12:19 PM) Dry Weight Obtained Via Patient/family stated (06/05/21 12:19 PM) Social History Social History Type Response Smoking Status Never smoker entered on: 05/31/17 Sex Female
--- OUTSIDE RECORDS SUMMARY | 2022-08-03 19:23 | XMS_ITS | Continuity of Care Document ---
:1940 Author Organization [facility] Address [address] [place] [address]- Care Team Providers Name Role Phone Justo ARMENDARIZ, Vega Reid Primary Care Physician [place]counter [facility] [place] Date(s): 10/07/20 - 10/08/[address] [address]- Encounter Diagnosis Toe pain (Final) - 10/08/20 Discharge Disposition: A-D/C Home Attending Physician: Jerrica Sabillon MD Admitting Physician: Jerrica Sabillon MD Referring Physician: Not on Staff, Referring MD Allergies, Adverse Reactions, Alerts Substance Reaction Severity Status morphine1 Unavailable Active Vioxx Active 1pt states allergy to narcotics Medications acetaminophen 325 mg oral tablet 650 mg, By Mouth, Every 6 hours, PRN, /Headache, Refills 0, Maintenance, Pain , Mild, 10/12/18 11:12:08 EDT Start Date: 10/12/18 Status: OrderedArtificial Tears 1.4% Eyes, Both, 4 times a day, 0 Refills, Maintenance, 10/12/18 11:13:02 EDT, Ophth Solution Start Date: 10/12/18 Status: OrderedAzopt 1% ophthalmic suspension 1 drops, Eyes, Both, 3 times a day, # 15 mL, 0 Refills, Maintenance, 10/03/18 21:37:27 EDT, Suspension Start Date: 10/03/18 Status: OrderedDaily Gertrudis oral tablet By Mouth, Daily, 0 Refills, Maintenance, 06/05/19 19:46:34 EST Start Date: 06/05/19 Status: Ordereddivalproex sodium 250 mg oral enteric coated tablet 1 tablet = 250 mg, By Mouth, Daily at bedtime, Take with 500 mg tab QHS, # [...] EST, Dry Weight Start Date: 06/14/19 Status: Orderedgabapentin 100 mg oral capsule 100 mg, Capsule, By Mouth, Once, STAT, 10/08/20 12:50:00 EDT, Stop date 10/08/20 12:50:00 EDT Start Date: 10/08/20 Stop Date: 10/08/20 Status: Completedlatanoprost 0.005% ophthalmic solution 1 drops, [...] Daily, # 30 patch, 0 Refills, Maintenance, 06/14/19 12:23:09 EST, Patch,Topically Daily, 160, cm, 06/14/19 7:21:40 EST, Height, 55.7, kg, 06/06/19 0:06:46 EST, Dry Weight Start Date: 06/14/19 Status: Orderedloperamide 2 mg oral capsule 2 mg, 1, capsule, By Mouth, Daily, PRN, Refills 0, Maintenance, Loose Stool, 06/05/19 19:47:12 EST Start Date: 06/05/19 Status: OrderedMaalox Plus Liquid 15 mL, By Mouth, 4 times a day, PRN Dyspepsia, 0 Refills, Maintenance, 10/12/18 11:07:56 EDT, Suspension Start Date: 10/12/18 Status: OrderedNeurontin 100 mg oral capsule 200 mg, By Mouth, 3 times a day, # 180 capsule, Refills 0, Tot. Refills 0, Maintenance, 10/12/18 11:12:24 EDT, Print Requisition Start Date: 10/12/18 Status: Orderedoxybutynin 5 mg/24 hours oral tablet, extended release 1 tablet = 5 mg, By Mouth, Daily, # 30 tablet, 0 Refills, Maintenance, 05/30/17 21:19:07, ER Tablet Start Date: 05/30/17 Status: OrderedPhenytoin Tablet 150 mg, Chew, 2 times a day, Refills 0, Maintenance, 10/03/18 21:36:09 EDT Start Date: 10/03/18 Status: OrderedPreparation H Topical 1 applicator, Rectally, Every 4 hours, PRN Other Pain , Moderate, 0 Refills, Maintenance, Ointment Start Date: 10/12/18 Status: OrderedRisperDAL 0.5 mg oral tablet See Instructions, 1.5 tab QAM and 2 tab QHS, # 100 tablet, Refills 0, Tot. Refills 0, Maintenance, 06/14/19 12:19:40 EST, Instructions Replace Required Details, Route to Pharmacy Electronically, [id number], [facility]/pharmacy #[id number]... Start Date: 06/14/19 Status: OrderedSalinex [place] 1 sprays, Nares, Both, 4 times a day, PRN Other, dryness, 0 Refills, Maintenance, 10/12/18 11:13:12 EDT, Nasal [place] Start Date: 10/12/18 Status: OrderedVitamin B-12 1000 mcg oral tablet 1,000 mcg, 1, tablet, By Mouth, Daily, Refills 0, Maintenance, 06/05/19 19:46:01 EST Start Date: 06/05/19 Status: OrderedVitamin B-6 Tablet 50 mg, By Mouth, Daily, Soft Stop, 04/30/09 14:17:22 Start Date: 04/30/09 Stop Date: 05/30/09 Status: OrderedVitamin D3 1000 intl units oral capsule 1 capsule = 1,000 International_Units, By Mouth, Daily, 0 Refills, Maintenance, 06/05/19 19:48:40 EST Start Date: 06/05/19 Status: Ordered Problem List Condition Effective Dates Status Health Status Informant Epilepsy(Confirmed) Active Hypothyroidism(Confirmed) Active Urinary retention(Confirmed) Active Results Radiology Reports Exam Date Time Procedure Performing Provider Status 10/07/20 10:47 PM Foot Min 3 Views Left Shira Rosales; Auth (Ve rified) Notes:(Foot Min 3 Views Left) Reason For Exam: with Pain;TraumaRESULT: Foot Min 3 Views Left Foot Min 3 Views Left CLINICAL INDICATION: Hx of Present Illness: L toe pain; Reason: Trauma; with Pain; Clinical Question(s): Fracture; Special Instructions: This is a protocol film and radiologist should call any findingsto the Charge Nurse COMPARISONS: None TECHNIQUE: AP, lateral and oblique views of the left foot were obtained. FINDINGS: There is diffuse soft tissue edema along the dorsum of the foot. There is mild diffuse osteopenia throughout the left foot. There is no fracture or dislocation. MTP and IP joint spaces are maintained. The Lisfranc joint space is normally aligned. No retained foreign body. Hindfoot midfoot alignment is normal. IMPRESSION: Marked soft tissue edema along the dorsum of the foot. No bone destruction or fracture. WSN: [id number] Ordering Physician: Kathryn Gabriel Dictated By: Simon Menon MD Dictated Date/Time: 10/07/20 11:12 p Reviewed By: Simon Menon MD Signed By: Simon Menon MD Signed Date/Time: 10/07/20 11:12 pm Transcribed By: ASHLEY Transcribed Date/Time: 10/07/20 11:09 pm Vital Signs Most recent to oldest 1 2 3 [Reference Range]: Oxygen Saturation [94-100 %] 100 % 100 % 100 % (10/08/20 8:59 AM) (10/08/20 12:33 AM) (10/07/20 9:58 PM) Pulse Rate [55-90 bpm] 73 bpm 74 bpm 77 bpm (10/08/20 8:59 AM) (10/08/20 12:33 AM) (10/07/20 9:58 PM) Blood Pressure [90-138/55-84 mm 133/65 mm Hg 126/62 mm Hg 114/54 mm Hg Hg] (10/08/20 8:59 AM) (10/08/20 12:33 AM) (10/07/20 9:58 PM) Respiratory Rate [16-30 br/min] 18 br/min 16 br/min 16 br/min (10/08/20 1:04 PM) (10/08/20 8:59 AM) (10/08/20 12:33 AM) Temperature [96.8-100.4 DegF] 97.8 DegF 97.4 DegF (10/08/20 12:33 AM) (10/07/20 9:58 PM) Mode of Delivery (Oxygen) Room air Room air Room a ir (10/08/20 8:59 AM) (10/08/20 12:33 AM) (10/07/20 9:58 PM) Blood pressure sites Arm, left Arm, right Arm, left (10/08/20 8:59 AM) (10/08/20 12:33 AM) (10/07/20 9:58 PM) Temperature Route Oral Oral (10/08/20 12:33 AM) (10/07/20 9:58 PM) Social History Social History Type Response Smoking Status Never smoker entered on: 05/31/17 Sex
--- OUTSIDE RECORDS SUMMARY | 2022-08-03 19:23 | XMS_ITS | Continuity of Care Document ---
:1940 Author Organization [facility] Address [address] [place] [address]- Care Team Providers Name Role Phone Justo ARMENDARIZ, Vega Reid Primary Care Physician [place] [facility] [place] 10/30/20 - 11/01/[address] [address] Encounter Diagnosis DVT of popliteal vein (Final) - 10/30/20 PE (pulmonary thromboembolism) (Final) - 10/30/20 Discharge Disposition: A-Transfer VNA/Home Health Attending Physician: Cora Harding DO Admitting Physician: Severo Emanuel MD Referring Physician: Not on Staff, Referring MD Allergies, Adverse Reactions, Alerts Substance Reaction Severity Status morphine1 Unavailable Active Vioxx Active 1pt states allergy to narcotics Medications acetaminophen 325 mg oral tablet 650 mg, By Mouth, Every 6 hours, PRN, /Headache, Refills 0, Maintenance, Pain , Mild, 10/12/18 11:12:08 EDT Start Date: 10/12/18 Status: OrderedAcetaminophen Tablet 650 mg, Tablet, By Mouth, 11/01/20 9:00:00 EDT Start Date: 11/01/20 Stop Date: 11/01/20 Status: CompletedAzopt 1% ophthalmic suspension 1 drops, Eyes, Both, [...] 01/24/21 11:59:00 EDT, 11/01/20 11:59:00 EDT, Injection, [facility], Partial fill upon patient [...] patch, 0 Refills, Maintenance, 11/01/20 11:58:00 EDT, Patch,[facility] 3, Topically Daily, 158, cm, 11/01/20 4:35:00 EDT, Height, 56.1, kg, :40:00 EDT, Dry Weight Start Date: 11/01/20 Status: Orderedloperamide 2 mg oral capsule 2 mg, 1, capsule, By Mouth, Daily, PRN, Refills 0, Maintenance, Loose Stool, 06/05/19 19:47:12 EST Start Date: 06/05/19 Status: OrderedNeurontin 100 mg oral capsule 200 mg, Capsule, By Mouth, 11/01/20 9:00:00 EDT Start Date: 11/01/20 Stop Date: 11/01/20 Status: CompletedNeurontin 100 mg oral capsule See [...] Replace Required Details, Route to Pharmacy Electronically, [facility]/pharmacy #[id number], 160, cm, 06/14/19 7:21:40 EST, Height,... [...] Exam Date Time Procedure Performing Provider Status 10/30/20 5:20 PM Chest Portable Fanta Griffin (Verified) Notes:(Chest Portable) Reason For Exam: Shortness of BreathRESULT: Chest Portable Chest Portable Hx of Present Illness: Shortness of breath. COMPARISON: 03/16/2020 FINDINGS: LINES AND TUBES: None. LUNGS AND PLEURA: Clear lungs. Normal pulmonary vascularity. No pleural effusion. No pneumothorax. HEART, MEDIASTINUM AND PEREZ: Heart is normal in size. Aorta is somewhat tortuous. BONES AND SOFT TISSUES: No acute abnormality. IMPRESSION: No acute abnormality. WSN: [id number] Ordering Physician: Fernanda Romano Dictated By: Orestes Kolb MD Dictated Date/Time: 10/30/20 5:28 pm Reviewed By: Orestes Kolb MD Signed By: Orestes Kolb MD Signed Date/Time: 10/30/20 5:28 pm Transcribed By: ASHLEY Transcribed Date/Time: 10/30/20 5:26 pm Vital Signs Most recent to oldest 1 2 3 [Reference Range]: Height 158 cm 158 cm 158 cm (11/01/20 4:35 AM) (10/31/20 11:08 PM) (10/31/20 4: 06 PM) Weight 56.1 kg 54.1 kg 54.1 kg (10/31/20 1:40 AM) (10/31/20 12:02 AM) (10/30/20 10 :07 PM) Oxygen Saturation [94-100 %] 98 % 97 % 96 % (11/01/20 11:00 AM) (11/01/20 4:35 AM) (10/31/20 11 :08 PM) Pulse Rate [55-90 bpm] 69 bpm 76 bpm 69 bpm (11/01/20 11:00 AM) (11/01/20 4:35 AM) (10/31/20 11 :08 PM) Body Mass Index [18.5-24.99] 22.47 21.67 (10/31/20 1:40 AM) (10/31/20 12:02 AM) Blood Pressure [90-138/55-84 115/62 mm Hg 102/58 mm Hg 98/ 56 mm Hg mm Hg] (11/01/20 11:00 AM) (11/01/20 4:35 AM) (10/31/20 11 :08 PM) Respiratory Rate [16-30 18 br/min 18 br/min 18 br/mi n br/min] (11/01/20 11:00 AM) (11/01/20 10:19 AM) (11/01/20 1 0:18 AM) Temperature [96.8-100.4 98.6 DegF 98.2 DegF 98.9 Deg F DegF] (11/01/20 11:00 AM) (11/01/20 4:35 AM) (10/31/20 11 :08 PM) Liters per Minute 0 L/min (10/30/20 2:09 PM) Mode of Delivery (Oxygen) Room air Room air Room a ir (11/01/20 11:00 AM) (11/01/20 4:35 AM) (10/31/20 11 :08 PM) Blood pressure sites Arm, left Arm, left Arm, left (11/01/20 11:00 AM) (11/01/20 4:35 AM) (10/31/20 11 :08 PM) Temperature Route Oral Oral Oral (11/01/20 11:00 AM) (11/01/20 4:35 AM) (10/31/20 11 :08 PM) Dry Weight 56.1 kg (10/31/20 1:40 AM) Weight Obtained Via Bed scale Standing scale (10/31/20 1:40 AM) (10/30/20 10:07 PM) Social History Social History Type Response Smoking Status Never smoker entered on: 05/31/17 Sex
--- OUTSIDE RECORDS SUMMARY | 2022-08-03 19:24 | XMS_ITS | Continuity of Care Document ---
:1940 Author Organization [facility] Address [address] [place] [address]- Care Team Providers Name Role Phone Radha ARMENDARIZ, Christian Primary Care Physician Encounter [facility] [place] Date(s): 05/28/21 - 05/29/[address] [address]- Encounter Diagnosis Chest pain (Final) - 05/29/21 Discharge Disposition: A-D/C AMA Attending Physician: Jayy ARMENDARIZ, Michelle Hastings Admitting Physician: Jared Hensley MD Referring Physician: Not on Staff, Referring [...] 0 Refills, Maintenance, 11/01/20 11:58:00 EDT, Patch,[facility], Topically Daily, 158, cm, 11/01/20 [...] Exam Date Time Procedure Performing Provider Status 05/29/21 1:24 AM Chest Portable Kerry Chaudhry; Auth (Verif ied) Notes:(Chest Portable) Reason For Exam: Shortness of BreathRESULT: Chest Portable Chest Portable, AP upright 1:15 AM Hx of Present Illness: from home, after she ate around 1900, pt began feeling SOB. States its the bins in her house are poisoning her. Pt reports pain when she exhales. States she is feeling better now.; Reason: Shortness of Breath; Clinical Question(s): CHF COMPARISON: 04/26/2021. FINDINGS: LINES AND TUBES: External monitoring leads. LUNGS AND PLEURA: Clear lungs. Normal pulmonary vascularity. No pleural effusion. No pneumothorax. HEART, MEDIASTINUM AND PEREZ: Heart is normal in size. Normal upper mediastinal and hilar contour. BONES AND SOFT TISSUES: No acute abnormality. Bilateral shoulder osteoarthritic changes. IMPRESSION: No acute abnormality. WSN: [id number] Ordering Physician: Jeovany Mao Dictated By: Catherine Hilton MD Dictated Date/Time: 05/29/21 7:43 am Reviewed By: Catherine Hilton MD Signed By: Catherine Hilton MD Signed Date/Time: 05/29/21 7:43 am Transcribed By: ASHLEY Transcribed Date/Time: 05/29/21 7:42 am Vital Signs Most recent to oldest 1 2 3 [Reference Range]: Height 158 cm 158 cm (05/29/21 11:36 AM) (05/29/21 7:26 AM) Weight 59.3 kg (05/29/21 7:26 AM) Oxygen Saturation [94-100 100 % 99 % 99 % %] (05/29/21 11:36 AM) (05/29/21:26 AM) (05/29/21 5:46 AM) Pulse Rate [55-90 bpm] 82 bpm 71 bpm 78 bpm (05/29/21 11:36 AM) (05/29/21 7:26 AM) (05/29/21 5:46 AM) Body Mass Index 23.75 [18.5-24.99] (05/29/21 7:26 AM) Blood Pressure 139/60 mm Hg 129/65 mm Hg 121/59 mm Hg [90-138/55-84 mm Hg] *H* (05/29/21 7:26 AM) ( 1 5:46 AM) (05/29/21 11:36 AM) Respiratory Rate [16-30 16 br/min 19 br/min 19 br/mi n br/min] (05/29/21 11:36 AM) (05/29/21 7:37 AM) (05/29/21 7:26 AM) Temperature [96.8-100.4 98.6 DegF 97.7 DegF 98 DegF DegF] (05/29/21 11:36 AM) (05/29/21:26 AM) (05/29/21 4:00 AM) Mode of Delivery (Oxygen) Room air Room air Room a ir (05/29/21 11:36 AM) (05/29/21 7:26 AM) (05/29/21 5:46 AM) Blood pressure sites Arm, right Arm, left (05/29/21 11:36 AM) (05/29/21:26 AM) Temperature Route Oral Oral Oral (05/29/21 11:36 AM) (05/29/21 7:26 AM) (05/29/21 4:00 AM) Dry Weight 59.3 kg (11/25/21 7:26 AM) Social History Social History Type Response Smoking Status Never smoker entered on: 05/31/17 Sex Female
--- OUTSIDE RECORDS SUMMARY | 2022-08-03 19:24 | XMS_ITS | Continuity of Care Document ---
:[address] [facility] Address [address] [place] [id number]- Care Team Providers Name Role Phone Christian Garcia MD Primary Care Physician Encounter [facility] Date(s): 01/29/22 - 01/30/[address] [address]- Encounter Diagnosis Chronic pain (Final) - 01/30/22 Discharge Disposition: A-D/C Home Attending Physician: Bruna Alegre MD Admitting Physician: Bruna Alegre MD Referring Physician: Not on Staff, Referring MD Allergies, Adverse Reactions, Alerts Substance Reaction Severity Status codeine Active morphine1 Unavailable Active Vioxx Active Chocolate2 Active Other Food Allergy3 Active Lactose Diarrhea Active traMADol Active 1pt states allergy to [id number] and Butter - causes diarrhea Immunizations Given [...] 0 Refills, Maintenance, 01/28/22 11:15:00EDT, EC Tablet, [facility], Partial fill upon patient request if the prescription is for aschedule II opioid drug., 158, cm, 08/28/21 11:42... Start Date: 01/28/22 Status: Ordereddivalproex sodium 500 mg oral enteric coated tablet = 500 mg, By Mouth, 2 times a day, # 60 tablet, 0 Refills, Maintenance, 01/28/22 11:15:00 EDT, Tablet, [facility], Partial fill upon patient request if the prescription is for a schedule II opioid drug., 158, cm, 08/28/21 11:42:00 EST, Fredigh... Start Date: 01/28/22 Status: Orderedenoxaparin 40 mg/0.4 mL injectable solution 0.45 mL = 45 mg, Subcutaneous Injection, Every 12 hours, # 81 mL, 0 Refills, Maintenance, 01/28/22 11:16:00 EDT, Injection, [facility], Partial fill upon patient request if the prescription is for a schedule II opioid drug., 158, cm, ... Start Date: 01/28/22 Status: Orderedesomeprazole 20 mg oral enteric coated capsule 1 capsule = 20 mg, By Mouth, Daily, TAKE ONE CAPSULE BY MOUTH EVERY DAY, # 30 capsule, 0 Refills, Maintenance, 01/28/22 11:16:00 EDT, EC Capsule, [facility], Partial fill upon patient requestif the prescription is for a schedule II opioid d... Start Date: 01/28/22 Status: Orderedfamotidine 20 mg oral tablet TAKE ONE TABLET BY MOUTH EVERY DAY DIRECTED Start Date: 08/26/21 Status: OrderedFlovent HFA 220 mcg/inh inhalation aerosol 1 puffs = 220 mcg, Inhalation, 2 times a day, day, # 1 each, 0 Refills, Maintenance, 01/28/22 11:14:00 EDT, Aerosol, [facility], Partial fill upon patient request if the prescription is for aschedule II opioid drug., 158, cm, 08/28/21 11:42... Start Date: 01/28/22 Status: Orderedfluticasone 50 mcg/inh nasal spray 2 sprays, Nares, Both, Daily in AM, Maintenance, 08/27/21 10:50:00 EST, [place], ; Start Date: 08/27/21 Status: Orderedgabapentin 300 mg oral capsule 300 mg, 1, capsule, By Mouth, 3 times a day, # 90 capsule, Refills 5, Tot. Refills 5, Maintenance, 01/28/22 11:16:00 EDT, Route to Pharmacy Electronically, [facility], Partial fill upon patient request [...] 0 Refills, Maintenance, 01/28/22 11:17:00 EDT, Tablet, [facility], Partial fill upon patient request if the prescription is for a schedule IIopioid drug., 158, cm, 08/28/21 11:42:00 EST, Hei... Start Date: 01/28/22 Status: Orderedlidocaine 0.5% topical gel 1 application, Topically, 3 times a day, # 120 Gm, 0 Refills, Maintenance, 01/28/22 11:19:00 EDT, Gel, [facility], Partial fill upon patient request if the prescription is for a schedule II opioid drug., 1 application Topically 3 times a day... Start Date: 01/28/22 Status: Orderedlidocaine 5% topical film See Instructions, Topically Daily, # 30 patch, 0 Refills, Maintenance, 01/28/22 11:19:00 EDT, Patch,[facility] 3, Topically Daily, 158, cm, 08/28/21 11:42:00 EST, Height, 45, kg, 08/26/21 18:30:00 EST, Dry Weight Start Date: 01/28/22 Status: Orderedloperamide 2 mg oral capsule 2 mg, 1, capsule, By Mouth, Every 4 hours, PRN, # 30 capsule, Refills 0, Tot. Refills 0, Maintenance, Loose Stool, 01/28/22 11:17:00 EDT, Route to Pharmacy Electronically, [facility], Partialfill upon patient request if the prescription is... Start Date: 01/28/22 Status: Orderedmagnesium oxide 400 mg oral tablet 1 tablet = 400 mg, By Mouth, Daily, # 14 tablet, 0 Refills, Maintenance, 01/28/22 11:17:00 EDT, Tablet, [facility], Partial fill upon patient request if the prescription is for a schedule II opioid drug., 158, cm, 08/28/21 11:42:00 EST, [place]... Start Date: 01/28/22 Stop Date: 02/11/22 Status: Orderedphenytoin 50 mg oral tablet, chewable 3 tablet = 150 mg, By Mouth, 2 times a day, # 180 tablet, 0 Refills, Maintenance, 01/28/22 11:18:00 EDT, Chew Tablet, [facility], Partial fill upon patient request [...] 0 Refills, Maintenance, 01/28/22 11:19:00 EDT, Tablet, [facility], Partial fill upon patient request [...] Exam Date Time Procedure Performing Provider Status 01/30/22 12:56 AM Chest 2 Views Frontal and Lat Neal Osullivan ; Judy (Verified) Notes:(Chest 2 Views Frontal and Lat) Reason For Exam: Shortness of Breath RESULT: Chest 2 Views Frontal and Lat Chest 2 Views Frontal and Lat Hx of Present Illness: R upper chest pain; Reason: Shortness of Breath; Clinical Question(s): Pneumonia; Special Instructions: This is a protocol film and radiologist should call any findings to the Charge Nurse COMPARISON: 01/24/2022 FINDINGS: LINES AND TUBES: None. LUNGS AND PLEURA: There are occasional interstitial markings present. There is no pneumonia. There is no CHF. No pleural effusion. No pneumothorax. HEART, MEDIASTINUM AND PEREZ: Heart is normal in size. Aorta is tortuous and unfolded. BONES AND SOFT TISSUES: No acute abnormality. IMPRESSION: No acute abnormality. WSN: [id number] Ordering Physician: Fadumo Hooker Dictated By: Michael Murdock MD Dictated Date/Time: 01/30/22 8:55 am Reviewed By: Michael Murdock MD Signed By: Michael Murdock MD Signed Date/Time: 01/30/22 8:55 am Transcribed By: ASHLEY Transcribed Date/Time: 01/30/22 8:50 am Vital Signs Most recent to oldest 1 2 3 [Reference Range]: Oxygen Saturation [94-100 %] 100 % 100 % 100 % (01/30/22 12:01 PM) (01/30/22 8:15 AM) (01/30/22 6: 29 AM) Pulse Rate [55-90 bpm] 77 bpm 75 bpm 72 bpm (01/30/22 12:01 PM) (01/30/22 8:15 AM) (01/30/22 6: 29 AM) Blood Pressure [90-138/55-84 123/69 mm Hg 129/57 mm Hg 116 /63 mm Hg mm Hg] (01/30/22 12:01 PM) (01/30/22 8:15 AM) (01/30/22 6: 29 AM) Respiratory Rate [16-30 18 br/min 20 br/min br/min] (01/30/22 3:11 AM) (01/29/22 9:58 PM) Temperature [96.8-100.4 DegF] 98.4 DegF 98.3 DegF 97 .3 DegF (01/30/22 12:01 PM) (01/30/22 8:15 AM) (01/30/22 6: 29 AM) Mode of Delivery (Oxygen) Room air Room air Room a ir (01/30/22 12:01 PM) (01/30/22 8:15 AM) (01/30/22 3: 11 AM) Blood pressure sites Arm, right Arm, right Arm, right (01/30/22 12:01 PM) (01/30/22 8:15 AM) (01/30/22 6: 29 AM) Temperature Route Oral Oral Axillary (01/30/22 12:01 PM) (01/30/22 8:15 AM) (01/30/22 6: 29 AM) Social History Social History Type Response Smoking Status Never smoker entered on: 05/31/17 Sex Female
--- OUTSIDE RECORDS SUMMARY | 2022-08-03 19:24 | XMS_ITS | Continuity of Care Document ---
:1940 Author Organization [facility] Address [address] [place] [address]- Care Team Providers Name Role Phone Justo ARMENDARIZ, Vega Reid Primary Care Physician Encounter [facility] Date(s): 03/16/20 - 03/18/[address] [address]- [facility] Discharge Disposition: A-D/C Home Attending Physician: Wen ARMENDARIZ, Mello Admitting Physician: Kieran Kuo DO Referring Physician: Not on Staff, Referring MD [...] EST, Dry Weight Start Date: 06/14/19 Status: Orderedlatanoprost 0.005% ophthalmic solution 1 drops, [...] Replace Required Details, Route to Pharmacy Electronically, [id number], [facility]/pharmacy #[id number]... Start Date: 06/14/19 Status: OrderedSalinex [place] 1 sprays, Nares, Both, 4 times a day, PRN Other, dryness, 0 Refills, Maintenance, 10/12/18 11:13:12 EDT, Nasal [place] Start Date: 10/12/18 Status: OrderedVitamin B-12 1000 [...] Exam Date Time Procedure Performing Provider Status 03/16/20 3:22 PM Chest 2 Views Frontal and Lat Les Caicedo (Verified) Notes:(Chest 2 Views Frontal and Lat) Reason For Exam: Shortness of Breath, Fever;Other:RESULT: Chest 2 Views Frontal and Lat Chest 2 Views Frontal and Lat Hx of Present Illness: Pt comes in for SOB. Pt reports at her home people are smoking all the time and she is uable to run her A C because it pulls in the smokey air. Pt also reports, mild chest discomfort and bites on the R posterior shoulder.; Reason: Other:; Shortness of Breath, Fever; Clinical Question(s): Pneumonia COMPARISON: Multiple priors, most recent 06/05/2019. FINDINGS: LINES AND TUBES: Monitoring leads project over the chest. LUNGS AND PLEURA: Clear lungs. Normal pulmonary vascularity. No pleural effusion. No pneumothorax. HEART, MEDIASTINUM AND PEREZ: Heart is normal in size. Aorta is somewhat tortuous. BONES AND SOFT TISSUES: No acute abnormality. Degenerative changes in the glenohumeral joints. IMPRESSION: No acute abnormality. WSN: [id number] Ordering Physician: Michael Mejia MD Dictated By: Michael Mojica MD Dictated Date/Time: 03/16/20 3:41 pm Reviewed By: Michael Mojica MD Signed By: Michael Mojica MD Signed Date/Time: 03/16/20 3:41 pm Transcribed By: ASHLEY Transcribed Date/Time: 03/16/20 3:38 pm Vital Signs Most recent to oldest 1 2 3 [Reference Range]: Height 157 cm (03/16/20 9:00 AM) Weight 55.7 kg (03/16/20 9:00 AM) Oxygen Saturation [94-100 %] 98 % 98 % 98 % (03/18/20 8:07 AM) (03/18/20 3:41 AM) (03/18/20 12: 38 AM) Pulse Rate [55-90 bpm] 79 bpm 86 bpm 84 bpm (03/18/20 8:07 AM) (03/18/20 3:41 AM) (03/18/20 12: 38 AM) Body Mass Index [18.5-24.99] 22.6 (03/16/20 9:00 AM) Blood Pressure [90-138/55-84 106/64 mm Hg 115/70 mm Hg 110 /60 mm Hg mm Hg] (03/18/20 8:07 AM) (03/18/20 3:41 AM) (03/18/20 12: 38 AM) Respiratory Rate [16-30 16 br/min 16 br/min 16 br/mi n br/min] (03/18/20 1:57 PM) (03/18/20 10:03 AM) (03/18/20 9: 03 AM) Temperature [96.8-100.4 DegF] 98.4 DegF 98.5 DegF 97 DegF (03/18/20 8:07 AM) (03/18/20 3:41 AM) (03/18/20 12: 38 AM) Mode of Delivery (Oxygen) Room air Room air Room a ir (03/18/20 8:07 AM) (03/18/20 3:41 AM) (03/18/20 12: 38 AM) Blood pressure sites Arm, left Arm, left Arm, left (03/18/20 8:07 AM) (03/18/20 3:41 AM) (03/18/20 12: 38 AM) Temperature Route Oral Oral Axillary (03/18/20 8:07 AM) (03/18/20 3:41 AM) (03/18/20 12: 38 AM) Dry Weight 55.7 kg (03/16/20 9:00 AM) Social History Social History Type Response Smoking Status Never smoker entered on: 05/31/17 Sex
--- OUTSIDE RECORDS SUMMARY | 2022-08-03 19:24 | XMS_ITS | Continuity of Care Document ---
:1940 Author Organization [facility] Address [address] [place] [address]- Care Team Providers Name Role Phone Christian Garcia MD Primary Care Physician Encounter [facility] [place] [facility] Date(s): 05/02/21 - 07/12/21 [facility] [address] [place] [phone]- Encounter Diagnosis Encounter for screening colonoscopy (Discharge Diagnosis) - 06/11/21 Attending Physician: Latoya Baez MD Admitting Physician: Latoya Baez MD Referring Physician: Christian Garcia MD Allergies, [...] patch, 0 Refills, Maintenance, 11/01/20 11:58:00 EDT, Patch,[facility] 3, Topically Daily, 158, cm, 11/01/20 [...] Active Urinary retention(Confirmed) Active urinary retention(Confirmed) Active Diagnosis Diagnosis Type Effective Dates Health Clinical Infor mant Status Service Encounter for Discharge 06/11/21 screening Diagnosis colonoscopy Social History Social History Type Response Smoking Status Never smoker entered on: 05/31/17 Sex Female
--- OUTSIDE RECORDS SUMMARY | 2022-08-03 19:24 | XMS_ITS | Continuity of Care Document ---
:1940 Author Organization [facility] Address Unavailable , Care Team Providers Name Role Phone Radha ARMENDARIZ, Christian Primary Care Physician [place] [facility] 09/25/21 - 10/25/21 [facility] Allergies, Adverse Reactions, Alerts Substance Reaction Severity Status codeine Active morphine1 Unavailable Active Vioxx Active Chocolate2 Active Other Food Allergy3 Active traMADol Active 1pt states allergy to [id number] and Butter - causes diarrhea Immunizations Given [...] Refills, Maintenance, 10/12/21 11:35:00 EDT, EC Tablet, [facility], Partial fill upon patient request if [...] Daily in AM, Maintenance, 08/27/21 10:50:00 EST, [place], ; Start Date: 08/27/21 Status: Orderedgabapentin 300 mg oral capsule 300 mg, 1, capsule, By Mouth, 3 times a day, # 90 capsule, Refills 5, Tot. Refills 5, Maintenance, 08/28/21 15:45:00 EST, Route to Pharmacy Electronically, [facility] 3, Partial fill upon patient request if [...] patch, 0 Refills, Maintenance, 11/01/20 11:58:00 EDT, Patch,[facility] 3, Topically Daily, 158, cm, 11/01/20 4:35:00 [...] Refills, Maintenance, 10/12/21 11:36:00 EDT, Chew Tablet, [facility], Partial fill upon patient request if [...] 0 Refills, Maintenance, 08/28/21 15:41:00 EST, Tablet, [facility], Partial fill upon patient request if [...]
--- OUTSIDE RECORDS SUMMARY | 2022-08-03 19:24 | XMS_ITS | Continuity of Care Document ---
:1940 Author Organization [facility] Address [address] [place] [address]- Care Team Providers Name Role Phone Christian Garcia MD Primary Care Physician Encounter [facility] [place] Date(s): 03/14/21 - 07/12/21 [facility] [address] [place] [phone]- Attending Physician: Eduardo Ryan Admitting Physician: Eduardo Ryan Referring Physician: Christian Garcia MD Allergies, Adverse [...] patch, 0 Refills, Maintenance, 11/01/20 11:58:00 EDT, Patch,[facility] 3, Topically Daily, 158, cm, 11/01/20 4:35:00 [...]
[2022-08-03 21:37] LABS: Hematocrit 34.1 % (37.0-47.0); Hemoglobin 11.3 g/dl (12.0-16.0); Mean Corpuscular HGB Conc 33.1 g/dl (31.0-35.0); Mean Corpuscular Volume 90.5 fL (80.0-98.0); Mean Platelet Volume 10.4 fL (9.4-12.3); Platelet Count 173 X10*3/uL (160-400); Red Blood Count 3.77 X10*6/uL (4.20-5.50); Red Cell Distribution Width 13.7 % (11.0-16.0); White Blood Count 5.6 X10*3/uL (4.8-10.8)
[2022-08-03 21:44] LABS: Prothrombin Time 11.4 SEC (10.0-13.1)
[2022-08-03 21:46] LABS: Partial Thromboplastin Time 31.2 SEC (26.0-36.4)
[2022-08-03 21:50] LABS: Estimated Glomerular Filt Rate > 60
[2022-08-03 21:53] VITALS: BMI 52.9
[2022-08-03] MEDS: Enoxaparin Sodium 60 MG/0.6 ML SYRINGE SUBCUT (22:01)
[2022-08-03] MEDS: Divalproex Sodium 500 MG TABLET.DR PO (22:01)
[2022-08-04] MEDS: Phenytoin Chewable 50 MG TAB.CHEW PO (00:23)
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
--- NOTE | 2022-08-04 01:40 | ECG_ITS ---
Test Reason : left anterior chest pain Blood Pressure : / mmHG Vent. Rate : 077 BPM Atrial Rate : 077 BPM P-R Int : 144 ms QRS Dur : 078 ms QT Int : 366 ms P-R-T Axes : 013 027 036 degrees QTc Int : 414 ms Normal sinus rhythm Normal ECG No previous ECGs available Referred By: Pedro Pablo Reyes Electronically Signed By:Curt Birmingham
[2022-08-04] MEDS: risperiDONE 0.5 MG TABLET PO ×3 (02:02→20:18)
[2022-08-04 02:10] VITALS: BP 133/62; PULSE 81; RESP 26; O2SAT 97
[2022-08-04] MEDS: Acetaminophen 325 MG TABLET 650 MG PO (02:33)
--- NOTE | 2022-08-04 05:18 | PC.NURSE ---
unable to reconcile medication list at this time d/t [facility] being closed over night.
--- NOTE | 2022-08-04 05:38 | PC.NURSE ---
0210-PT ANXIOUS AWAKE/HAS C/O OF LEFT ANTERIOR CHEST PAIN MOVING INTO LEFT ARM. PAIN IS WORST WITH DEEP BREATHS AND CHEST WALL PALPATION. DR FLORES NOTIFIED 1. C/O OF CHEST PAIN LEFT ANTERIOR CHEST MOVING INTO LEFT UPPER ARM 2. PT HAD PRESENTED TO [facility] WITH SIMILAR COMPLAINTS HAD CTA NEGATIVE FOR PE 3. VITL SIGNS 133/62 P. 81 BPM 26 RR SAO2 97%-12 LEAD ECG OBTAINED AND IMAGE OF 12 LEAD SENT TO .
[2022-08-04] MEDS: Levothyroxine Sodium 150 MCG TABLET PO (06:07)
[2022-08-04] MEDS: Omeprazole 20 MG CAPSULE.DR PO (06:07)
[2022-08-04 07:30] VITALS: BP 131/68; PULSE 77; RESP 15; TEMP 37.1; O2SAT 97
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
[2022-08-04 08:23] LABS: Hematocrit 36.6 % (37.0-47.0); Hemoglobin 12.3 g/dl (12.0-16.0); Mean Corpuscular HGB Conc 33.6 g/dl (31.0-35.0); Mean Corpuscular Hemoglobin 30.4 pg (27.0-33.0); Mean Corpuscular Volume 90.4 fL (80.0-98.0); Mean Platelet Volume 10.6 fL (9.4-12.3); Platelet Count 173 X10*3/uL (160-400); Red Blood Count 4.05 X10*6/uL (4.20-5.50); Red Cell Distribution Width 13.5 % (11.0-16.0); White Blood Count 4.9 X10*3/uL (4.8-10.8)
[2022-08-04 08:46] LABS: Estimated Average Glucose 91 mg/dL; Hemoglobin A1c % 4.8 %
[2022-08-04 08:48] LABS: Cholesterol 207 mg/dL; HDL Cholesterol 68 mg/dL; LDL Cholesterol Calculated 125 mg/dl; Magnesium 1.7 mg/dL (1.6-2.6); Triglycerides 72 mg/dL
[2022-08-04 09:17] LABS: Folate 4.3 ng/mL (> or = 4.0); Free T4 (Free Thyroxine) 1.14 ng/dL (0.71-1.85); Thyroid Stimulating Hormone 1.53 uIU/mL (0.32-4.0); Vitamin B12 999 pg/mL (200-900)
[2022-08-04] MEDS: Magnesium Oxide 400 MG TABLET PO (10:08)
[2022-08-04] MEDS: Phenytoin Chewable 50 MG TAB.CHEW 150 MG PO ×2 (10:08→20:19)
[2022-08-04] MEDS: Enoxaparin Sodium 60 MG/0.6 ML SYRINGE SUBCUT ×2 (10:09→20:19)
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
[2022-08-04] MEDS: Divalproex Sodium 500 MG TABLET.DR PO (20:19)
[2022-08-04 20:39] VITALS: BP 107/57; PULSE 77; RESP 16; TEMP 36.6; O2SAT 97
[2022-08-05] MEDS: Acetaminophen 325 MG TABLET 650 MG PO (01:39)
[2022-08-05] MEDS: Omeprazole 20 MG CAPSULE.DR PO (05:23)
[2022-08-05] MEDS: Levothyroxine Sodium 150 MCG TABLET PO (05:24)
--- NOTE | 2022-08-05 06:35 | P.PNPSI_ITS ---
Subjective Subjective Date of Service: 08/05/22 Reason For Visit: Schizophrenia Subjective Notes: Conditional Voluntary Interim History: The nursing staff reported the patient has been compliant with medications, she complains of depression and anxiety 09/11. She slept well On interview the patient is a hospital gowns and she reported that she wants to get discharged as soon as she is more stable. She has not attended to any groups and she stays in her room most of the time.OT will encourge her to attend groups. Mental Status Exam Mental Status Exam Patient Appearance: Appropriate Patient Orientation: Person and Situation Level of Consciousness: Awake and Appropriate Patient Behavior: Guarded and Passive Mood Description: Withdrawn Affect Description: Constricted Patient Cognition Impaired: Yes Ability to Follow Directions: Good Speech Pattern: Clear Hallucinations: None Delusions: Paranoid Ideation Thought Process: Distracted and Evasive Thought Content: positive for [place], positive for Perseveration and positive for Poverty of Content Judgement: Fair Diagnostics Vital Signs (24Hr): Vital Signs - 24 hr 08/04/22 07:30 08/04/22 20:39 Temperature 98.7 F 97.9 F Pulse Rate 77 77 Respiratory Rate 15 16 Blood Pressure 131/68 107/57 L Pulse Oximetry 97 97 Oxygen Delivery Method Room Air Room Air BMI result Body Mass Index 52.9 Labs 08/04/22 07:50 08/03/22 21:31 Labs: Laboratory Results - last 48 hr 08/03/22 08/03/22 08/03/22 21:31 21:31 21:31 WBC 5.6 RBC 3.77 L Hgb 11.3 L Hct 34.1 L MCV 90.5 MCH 30.0 MCHC 33.1 RDW 13.7 Plt Count 173 MPV 10.4 Absolute Nucleated RBC 0.000 Nucleated RBC % (auto) 0.0 PT 11.4 INR 1.0 APTT 31.2 Creatinine 0.61 Estim Creat Clear Calc TNP Estimated GFR > 60 Estimat Average Glucose Hemoglobin A1c % Magnesium Triglycerides Cholesterol LDL Cholesterol, Calc HDL Cholesterol Vitamin B12 Folate TSH Free T4 08/04/22 08/04/22 08/04/22 07:50 07:50 07:50 WBC 4.9 RBC 4.05 L Hgb 12.3 Hct 36.6 L MCV 90.4 MCH 30.4 MCHC 33.6 RDW 13.5 Plt Count 173 MPV 10.6 Absolute Nucleated RBC 0.000 Nucleated RBC % (auto) 0.0 PT INR APTT Creatinine Estim Creat Clear Calc Estimated GFR Estimat Average Glucose 91 Hemoglobin A1c % 4.8 Magnesium 1.7 Triglycerides 72 Cholesterol 207 LDL Cholesterol, Calc 125 HDL Cholesterol 68 Vitamin B12 999 H Folate 4.3 TSH 1.53 Free T4 1.14 08/04/22 21:12 WBC RBC Hgb Hct MCV MCH MCHC RDW Plt Count MPV Absolute Nucleated RBC Nucleated RBC % (auto) PT 12.0 INR 1.0 APTT Creatinine Estim Creat Clear Calc Estimated GFR Estimat Average Glucose Hemoglobin A1c % Magnesium Triglycerides Cholesterol LDL Cholesterol, Calc HDL Cholesterol Vitamin B12 Folate TSH Free T4 Medications Medications Current Medications Acetaminophen (Acetaminophen 325 Mg Tablet) 650 mg PO Q6H PRN PRN Reason: Headache/Pain Mild Scale (1-3) Last Admin: 08/05/22 01:39 Dose: 650 mg Al Hydroxide/Mg Hydroxide (Magnesium Hydrox/Alum Hydrox 30 Ml Oral.Susp) 30 ml PO Q6H PRN PRN Reason: Heartburn/Nausea Divalproex Sodium (Divalproex Sodium 500 Mg Tablet.) 500 mg PO BID [facility] Last Admin: 08/04/22 20:19 Dose: 500 mg Enoxaparin Sodium (Enoxaparin Sodium 60 Mg/0.6 Ml Syringe) 60 mg SUBCUT Q12H [facility] Last Admin: 08/04/22 20:19 Dose: 60 mg Hydroxyzine HCl (Hydroxyzine Hcl 25 Mg Tablet) 25 mg PO Q6H PRN PRN Reason: Anxiety Levothyroxine Sodium (Levothyroxine Sodium 150 Mcg Tablet) 150 mcg PO DAILY@0600 [facility] Last Admin: 08/05/22 05:24 Dose: 150 mcg Magnesium Hydroxide (Milk Of Magnesia 30 Ml Oral.Susp) 30 ml PO DAILY PRN PRN Reason: Constipation Magnesium Oxide (Magnesium Oxide 400 Mg Tablet) 400 mg PO DAILY [facility] Last Admin: 08/04/22 10:08 Dose: 400 mg Omeprazole (Omeprazole 20 Mg Capsule.) 20 mg PO DAILY@0630 [facility] Last Admin: 08/05/22 05:23 Dose: 20 mg Phenytoin (Phenytoin Chewable 50 Mg Tab.Chew) 150 mg PO BID [facility] Last Admin: 08/04/22 20:19 Dose: 150 mg Risperidone (Risperidone 0.5 Mg Tablet) 0.5 mg PO BID [facility] Last Admin: 08/04/22 20:18 Dose: 0.5 mg Trazodone HCl (Trazodone Hcl 50 Mg Tablet) 50 mg PO BEDTIME PRN PRN Reason: Insomnia Allergies Allergies Allergy/AdvReac Type Severity Reaction Status Date / Time codeine Allergy Unknown Unknown Verified 04/09/22 12:46 lactase Allergy Unknown Unknown Verified 04/09/22 12:46 rofecoxib Allergy Unknown Unknown Verified 04/09/22 12:46 tramadol Allergy Unknown Unknown Verified 04/09/22 12:46 cholrpromazine Allergy Unknown Unknown Uncoded 04/09/22 12:46 tranquliziers Allergy Unknown Unknown Uncoded 04/09/22 12:46 Assessment & Plan Assessment & Plan (1) Osteoporosis: Status: Acute Code(s): M81.0 - Age-related osteoporosis without current pathological fracture (2) Seizure disorder: Status: Acute Code(s): G40.909 - Epilepsy, unspecified, not intractable, without status epilepticus (3) Unspecified psychosis: Status: Acute Code(s): F29 - Unspecified psychosis not due to a substance or known physiological condition Plan The patient is an elderly female with a prior history of seizure disorder, dysphoria and recent onset of psychotic symptoms elicited by paranoia against her VNA and disorganized behavior. Plan 1. Gather collateral information. 2. Increase Risperdal up to 0.5 p.o. b.i.d. to target psychosis. 3. Continue with anticonvulsive meds, we will try to get a level in a couple of days. 4. Reassessment with results. 5. The occupational therapist reported that she scored 18/30 on the [place] but her Zechariah test was 4.4. 6. Dilantin and depakote level for tomorrow AM. Reason for contiued inpatient stay Substantial Risk for: inability to function, rapid decompensation and med/psych decompensation Time Spent With Patient Time: Total time managing care of this patient today __20__ minutes.
[2022-08-05] MEDS: Phenytoin Chewable 50 MG TAB.CHEW 150 MG PO ×2 (09:41→20:10)
[2022-08-05] MEDS: Divalproex Sodium 500 MG TABLET.DR PO ×2 (09:44→20:11)
[2022-08-05] MEDS: Magnesium Oxide 400 MG TABLET PO (09:45)
[2022-08-05] MEDS: risperiDONE 0.5 MG TABLET PO ×2 (09:45→20:11)
[2022-08-05] MEDS: Enoxaparin Sodium 60 MG/0.6 ML SYRINGE SUBCUT (20:11)
[2022-08-06] MEDS: Levothyroxine Sodium 150 MCG TABLET PO (05:32)
[2022-08-06] MEDS: Acetaminophen 325 MG TABLET 650 MG PO (05:32)
[2022-08-06] MEDS: Omeprazole 20 MG CAPSULE.DR PO (05:32)
[2022-08-06 07:00] VITALS: BMI 22.1
--- NOTE | 2022-08-06 07:51 | HO.PSYCHPN ---
Subjective Subjective Date of Service: 08/06/22 Reason For Visit: Schizophrenia Subjective Notes: Conditional Voluntary Interim History: The nursing staff reported the patient had been compliant with treatment, she is mostly seclusive, stating her room, participating minimally on the activities of the unit. The occupational therapist reported that she can live independently in the community. On interview the patient denies new symptoms, she has not reported any auditory hallucinations at this moment. Her Dilantin and Depakote came back very low. Mental Status Exam Mental Status Exam Patient Appearance: Appropriate Patient Orientation: Person and Situation Level of Consciousness: Awake and Appropriate Patient Behavior: Guarded and Passive Mood Description: Withdrawn Affect Description: Constricted Patient Cognition Impaired: Yes Ability to Follow Directions: Good Speech Pattern: Clear Hallucinations: None Delusions: Paranoid Ideation Thought Process: Distracted and Slowed Thinking Thought Content: positive for [place] and positive for Circumstantial Judgement: Fair Diagnostics Vital Signs (24Hr): BMI result Body Mass Index 52.9 Labs 08/04/22 07:50 08/03/22 21:31 Labs: Laboratory Results - last 48 hr 08/04/22 08/04/22 08/04/22 07:50 07:50 07:50 WBC 4.9 RBC 4.05 L Hgb 12.3 Hct 36.6 L MCV 90.4 MCH 30.4 MCHC 33.6 RDW 13.5 Plt Count 173 MPV 10.6 Absolute Nucleated RBC 0.000 Nucleated RBC % (auto) 0.0 PT INR Estimat Average Glucose 91 Hemoglobin A1c % 4.8 Magnesium 1.7 Triglycerides 72 Cholesterol 207 LDL Cholesterol, Calc 125 HDL Cholesterol 68 Vitamin B12 999 H Folate 4.3 TSH 1.53 Free T4 1.14 08/04/22 21:12 WBC RBC Hgb Hct MCV MCH MCHC RDW Plt Count MPV Absolute Nucleated RBC Nucleated RBC % (auto) PT 12.0 INR 1.0 Estimat Average Glucose Hemoglobin A1c % Magnesium Triglycerides Cholesterol LDL Cholesterol, Calc HDL Cholesterol Vitamin B12 Folate TSH Free T4 Medications Medications Current Medications Acetaminophen (Acetaminophen 325 Mg Tablet) 650 mg PO Q6H PRN PRN Reason: Headache/Pain Mild Scale (1-3) Last Admin: 08/06/22 05:32 Dose: 650 mg Al Hydroxide/Mg Hydroxide (Magnesium Hydrox/Alum Hydrox 30 Ml Oral.Susp) 30 ml PO Q6H PRN PRN Reason: Heartburn/Nausea Divalproex Sodium (Divalproex Sodium 500 Mg Tablet.) 500 mg PO BID [facility] Last Admin: 08/05/22 20:11 Dose: 500 mg Enoxaparin Sodium (Enoxaparin Sodium 60 Mg/0.6 Ml Syringe) 60 mg SUBCUT Q12H [facility] Last Admin: 08/05/22 20:11 Dose: 60 mg Hydroxyzine HCl (Hydroxyzine Hcl 25 Mg Tablet) 25 mg PO Q6H PRN PRN Reason: Anxiety Levothyroxine Sodium (Levothyroxine Sodium 150 Mcg Tablet) 150 mcg PO DAILY@0600 [facility] Last Admin: 08/06/22 05:32 Dose: 150 mcg Magnesium Hydroxide (Milk Of Magnesia 30 Ml Oral.Susp) 30 ml PO DAILY PRN PRN Reason: Constipation Magnesium Oxide (Magnesium Oxide 400 Mg Tablet) 400 mg PO DAILY [facility] Last Admin: 08/05/22 09:45 Dose: 400 mg Omeprazole (Omeprazole 20 Mg Capsule.) 20 mg PO DAILY@0630 [facility] Last Admin: 08/06/22 05:32 Dose: 20 mg Phenytoin (Phenytoin Chewable 50 Mg Tab.Chew) 150 mg PO BID [facility] Last Admin: 08/05/22 20:10 Dose: 150 mg Risperidone (Risperidone 0.5 Mg Tablet) 0.5 mg PO BID [facility] Last Admin: 08/05/22 20:11 Dose: 0.5 mg Trazodone HCl (Trazodone Hcl 50 Mg Tablet) 50 mg PO BEDTIME PRN PRN Reason: Insomnia Allergies Allergies Allergy/AdvReac Type Severity Reaction Status Date / Time codeine Allergy Unknown Unknown Verified 04/09/22 12:46 lactase Allergy Unknown Unknown Verified 04/09/22 12:46 rofecoxib Allergy Unknown Unknown Verified 04/09/22 12:46 tramadol Allergy Unknown Unknown Verified 04/09/22 12:46 cholrpromazine Allergy Unknown Unknown Uncoded 04/09/22 12:46 tranquliziers Allergy Unknown Unknown Uncoded 04/09/22 12:46 Assessment & Plan Assessment & Plan (1) Osteoporosis: Status: Acute Code(s): M81.0 - Age-related osteoporosis without current pathological fracture (2) Seizure disorder: Status: Acute Code(s): G40.909 - Epilepsy, unspecified, not intractable, without status epilepticus (3) Unspecified psychosis: Status: Acute Code(s): F29 - Unspecified psychosis not due to a substance or known physiological condition Plan The patient is an elderly female with a prior history of seizure disorder, dysphoria and recent onset of psychotic symptoms elicited by paranoia against her VNA and disorganized behavior. Plan 1. Gather collateral information. 2. Increase Risperdal up to 0.5 p.o. b.i.d. to target psychosis. 3. Continue with anticonvulsive meds, we will try to get a level in a couple of days. 4. Reassessment with results. 5. The occupational therapist reported that she scored 18/[address] [place] but her Zechariah test was 4.4. 6. Dilantin and depakote level for today AM. Low 7. Increase Depakote up to 1250 mg/day 8. Increase Dilantin up to 200 mg po bid. Reason for contiued inpatient stay Substantial Risk for: inability to function, rapid decompensation and med/psych decompensation Time Spent With Patient Time: Total time managing care of this patient today __20__ minutes.
[2022-08-06 08:22] LABS: MANUAL DIFF FLAG NO
[2022-08-06 08:30] VITALS: BP 106/60; PULSE 78; RESP 18; TEMP 36.6; O2SAT 97
[2022-08-06 08:31] LABS: Basophils Percent Auto 0.4 % (0-2); Eosinophils Percent Auto 0.4 % (0-4); Hematocrit 39.1 % (37.0-47.0); Hemoglobin 12.7 g/dl (12.0-16.0); Imm Gran Abs Auto 0.01 X10*3/uL (0.00-0.03); Imm Gran Pct Auto 0.2 % (0.0-0.4); Lymphocytes Absolute Auto 1.3 X10*3/uL (1.2-4.9); Lymphocytes Percent Auto 26.7 % (20-40); Mean Corpuscular HGB Conc 32.5 g/dl (31.0-35.0); Mean Corpuscular Hemoglobin 29.7 pg (27.0-33.0); Mean Corpuscular Volume 91.4 fL (80.0-98.0); Mean Platelet Volume 10.7 fL (9.4-12.3); Monocytes Absolute Auto 0.6 X10*3/uL (0.1-1.2); Neutrophils Percent Auto 60.3 % (45-73); Platelet Count 180 X10*3/uL (160-400); Red Blood Count 4.28 X10*6/uL (4.20-5.50); Red Cell Distribution Width 13.5 % (11.0-16.0)
[2022-08-06] MEDS: Divalproex Sodium 500 MG TABLET.DR PO ×2 (08:56→20:06)
[2022-08-06] MEDS: Phenytoin Chewable 50 MG TAB.CHEW 150 MG PO (08:57)
[2022-08-06] MEDS: Magnesium Oxide 400 MG TABLET PO (08:58)
[2022-08-06] MEDS: risperiDONE 0.5 MG TABLET PO ×2 (08:59→20:06)
[2022-08-06] MEDS: Enoxaparin Sodium 60 MG/0.6 ML SYRINGE SUBCUT ×2 (09:00→20:08)
[2022-08-06 09:07] LABS: Phenytoin Dilantin 2.3 ug/mL (10.0-20.0); Valproate 26.3 mcg/mL (50.0-100.0)
[2022-08-06 09:17] LABS: Alanine Aminotransferase 18 U/L (0-31); Alkaline Phosphatase 88 U/L (39-117); Anion Gap 14 (12-20); Aspartate Amino Transferase 18 U/L (5-31); Bilirubin Direct < 0.2 mg/dL (0.0-0.5); Bilirubin Total 0.5 mg/dL (0.0-1.0); Blood Urea Nitrogen 19 mg/dL (9-16); Calcium 9.3 mg/dL (8.4-10.2); Carbon Dioxide 26 mmol/L (22-29); Chloride 101 mmol/L (96-108); Creatinine Clr Calc Pharmacy 96.6; Estimated Glomerular Filt Rate > 60; Glucose Random 97 mg/dL (60-115); Potassium 4.5 mmol/L (3.3-5.1); Sodium 136 mmol/L (135-145); Total Protein 6.7 g/dL (6.5-8.0)
[2022-08-06 18:00] VITALS: BP 121/56; PULSE 73; RESP 18; TEMP 36.7; O2SAT 99
[2022-08-06] MEDS: Phenytoin Chewable 50 MG TAB.CHEW 200 MG PO (20:05)
[2022-08-07] MEDS: Omeprazole 20 MG CAPSULE.DR PO (06:00)
[2022-08-07] MEDS: Levothyroxine Sodium 150 MCG TABLET PO (06:00)
--- NOTE | 2022-08-07 10:19 | P.PNPSI_ITS ---
Subjective Subjective Date of Service: 08/07/22 Reason For Visit: Schizophrenia Subjective Notes: Conditional Voluntary Interim History: The nursing staff reported the patient has complained of pain on her ankle and foot there improved partially with Tylenol. She slept only 2 or 3 hours. The social science manager reported that she interview with the patient yesterday she complained of pain she tried to reach [facility] providers since she lives alone. Apparently, she has some providers from [facility]. On interview the patient denies new symptoms, I explained the her Dilantin and Depakote labral low and we need to titrate up and monitor. Mental Status Exam Mental Status Exam Patient Appearance: Appropriate Patient Orientation: Person and Situation Level of Consciousness: Awake and Appropriate Patient Behavior: Guarded and Passive Mood Description: Withdrawn Affect Description: Constricted Patient Cognition Impaired: Yes Ability to Follow Directions: Good Speech Pattern: Clear Hallucinations: None Delusions: Not Present Thought Process: Distracted Thought Content: positive for Circumstantial Judgement: Fair Diagnostics Vital Signs (24Hr): Vital Signs - 24 hr 08/06/22 18:00 Temperature 98.1 F Pulse Rate 73 Respiratory Rate 18 Blood Pressure 121/56 L Pulse Oximetry 99 Oxygen Delivery Method Room Air BMI result Body Mass Index 22.1 Labs 08/06/22 08:15 08/06/22 08:15 Labs: Laboratory Results - last 48 hr 08/06/22 08/06/22 08/06/22 08:15 08:15 08:15 WBC 5.0 RBC 4.28 Hgb 12.7 Hct 39.1 MCV 91.4 MCH 29.7 MCHC 32.5 RDW 13.5 Plt Count 180 MPV 10.7 Immature Gran % (Auto) 0.2 Neut % (Auto) 60.3 Lymph % (Auto) 26.7 [place] % (Auto) 12.0 H Eos % (Auto) 0.4 Baso % (Auto) 0.4 Lymph # (Auto) 1.3 [place] # (Auto) 0.6 Eos # (Auto) 0.0 Baso # (Auto) 0.0 Abs Immat Gran (auto) 0.01 Absolute Neuts (auto) 3.0 Absolute Nucleated RBC 0.000 Nucleated RBC % (auto) 0.0 Sodium 136 Potassium 4.5 Chloride 101 Carbon Dioxide 26 Anion Gap 14 BUN 19 H Creatinine 0.64 Estim Creat Clear Calc 96.6 Estimated GFR > 60 Random Glucose 97 Calcium 9.3 Total Bilirubin 0.5 Direct Bilirubin < 0.2 AST 18 ALT 18 Alkaline Phosphatase 88 Total Protein 6.7 Albumin 4.0 Phenytoin 2.3 L* Valproic Acid 26.3 L Medications Medications Current Medications Acetaminophen (Acetaminophen 325 Mg Tablet) 650 mg PO Q6H PRN PRN Reason: Headache/Pain Mild Scale (1-3) Last Admin: 08/06/22 05:32 Dose: 650 mg Al Hydroxide/Mg Hydroxide (Magnesium Hydrox/Alum Hydrox 30 Ml Oral.Susp) 30 ml PO Q6H PRN PRN Reason: Heartburn/Nausea Divalproex Sodium (Divalproex Sodium 500 Mg Tablet.) 500 mg PO BID [facility] Last Admin: 08/06/22 20:06 Dose: 500 mg Divalproex Sodium (Divalproex Sodium 250 Mg Tablet.) 250 mg PO DAILY@1700 [facility] Last Admin: 08/07/22 01:26 Dose: Not Given Enoxaparin Sodium (Enoxaparin Sodium 60 Mg/0.6 Ml Syringe) 60 mg SUBCUT Q12H [facility] Last Admin: 08/06/22 20:08 Dose: 60 mg Hydroxyzine HCl (Hydroxyzine Hcl 25 Mg Tablet) 25 mg PO Q6H PRN PRN Reason: Anxiety Levothyroxine Sodium (Levothyroxine Sodium 150 Mcg Tablet) 150 mcg PO DAILY@0600 [facility] Last Admin: 08/07/22 06:00 Dose: 150 mcg Magnesium Hydroxide (Milk Of Magnesia 30 Ml Oral.Susp) 30 ml PO DAILY PRN PRN Reason: Constipation Magnesium Oxide (Magnesium Oxide 400 Mg Tablet) 400 mg PO DAILY [facility] Last Admin: 08/06/22 08:58 Dose: 400 mg Omeprazole (Omeprazole 20 Mg Capsule.) 20 mg PO DAILY@0630 [facility] Last Admin: 08/07/22 06:00 Dose: 20 mg Phenytoin (Phenytoin Chewable 50 Mg Tab.Chew) 200 mg PO BID [facility] Last Admin: 08/06/22 20:05 Dose: 200 mg Risperidone (Risperidone 0.5 Mg Tablet) 0.5 mg PO BID [facility] Last Admin: 08/06/22 20:06 Dose: 0.5 mg Trazodone HCl (Trazodone Hcl 50 Mg Tablet) 50 mg PO BEDTIME PRN PRN Reason: Insomnia Allergies Allergies Allergy/AdvReac Type Severity Reaction Status Date / Time codeine Allergy Unknown Unknown Verified 04/09/22 12:46 lactase Allergy Unknown Unknown Verified 04/09/22 12:46 rofecoxib Allergy Unknown Unknown Verified 04/09/22 12:46 tramadol Allergy Unknown Unknown Verified 04/09/22 12:46 chlorpromazine Allergy Unknown Verified 08/06/22 09:17 tranquliziers Allergy Unknown Unknown Uncoded 04/09/22 12:46 Assessment & Plan Assessment & Plan (1) Osteoporosis: Status: Acute Code(s): M81.0 - Age-related osteoporosis without current pathological fracture (2) Seizure disorder: Status: Acute Code(s): G40.909 - Epilepsy, unspecified, not intractable, without status epilepticus (3) Unspecified psychosis: Status: Acute Code(s): F29 - Unspecified psychosis not due to a substance or known physiological condition Plan The patient is an elderly female with a prior history of seizure disorder, dysphoria and recent onset of psychotic symptoms elicited by paranoia against her VNA and disorganized behavior. Plan 1. Gather collateral information. 2. Increase Risperdal up to 0.5 p.o. b.i.d. to target psychosis. 3. Continue with anticonvulsive meds, we will try to get a level in a couple of days. 4. Reassessment with results. 5. The occupational therapist reported that she scored 18/30 on the [place] but her Zechariah test was 4.4. 6. Dilantin and depakote level for August 06. Low 7. Increase Depakote up to 1250 mg/day on August 06. On August 07 we will increased to 1500 mg daily 8. Increase Dilantin up to 200 mg po bid on August 06. 9. New Dilantin and Depakote levels for next Wednesday. Reason for contiued inpatient stay Substantial Risk for: inability to function, rapid decompensation and med/psych decompensation Time Spent With Patient Time: Total time managing care of this patient today __20__ minutes.
[2022-08-07] MEDS: risperiDONE 0.5 MG TABLET PO (10:57)
[2022-08-07] MEDS: Divalproex Sodium 500 MG TABLET.DR PO (10:57)
[2022-08-07] MEDS: Magnesium Oxide 400 MG TABLET PO (10:58)
[2022-08-07] MEDS: Enoxaparin Sodium 60 MG/0.6 ML SYRINGE SUBCUT ×2 (10:59→20:14)
[2022-08-07] MEDS: Phenytoin Chewable 50 MG TAB.CHEW 150 MG PO (11:02)
[2022-08-07] MEDS: Phenytoin Chewable 50 MG TAB.CHEW 200 MG PO ×2 (11:04→20:13)
[2022-08-07 18:00] VITALS: BP 115/55; PULSE 90; RESP 17; TEMP 35.9; O2SAT 96
[2022-08-07] MEDS: Divalproex Sodium 250 MG TABLET.DR 750 MG PO (20:13)
[2022-08-08 06:00] VITALS: BP 116/58; PULSE 89; RESP 17; TEMP 36.4; O2SAT 98
[2022-08-08] MEDS: Omeprazole 20 MG CAPSULE.DR PO (06:30)
[2022-08-08] MEDS: Levothyroxine Sodium 150 MCG TABLET PO (06:30)
[2022-08-08 07:03] LABS: Hematocrit 36.8 % (37.0-47.0); Hemoglobin 11.9 g/dl (12.0-16.0); Mean Corpuscular HGB Conc 32.3 g/dl (31.0-35.0); Mean Corpuscular Volume 92.7 fL (80.0-98.0); Mean Platelet Volume 10.9 fL (9.4-12.3); Platelet Count 148 X10*3/uL (160-400); Red Blood Count 3.97 X10*6/uL (4.20-5.50); Red Cell Distribution Width 13.6 % (11.0-16.0); White Blood Count 3.9 X10*3/uL (4.8-10.8)
[2022-08-08] MEDS: Phenytoin Chewable 50 MG TAB.CHEW 200 MG PO ×2 (09:36→22:17)
[2022-08-08] MEDS: risperiDONE 0.5 MG TABLET PO (09:37)
[2022-08-08] MEDS: Divalproex Sodium 250 MG TABLET.DR 750 MG PO (09:37)
[2022-08-08] MEDS: Magnesium Oxide 400 MG TABLET PO (09:37)
[2022-08-08] MEDS: Enoxaparin Sodium 60 MG/0.6 ML SYRINGE SUBCUT ×2 (09:39→22:17)
--- NOTE | 2022-08-08 11:40 | HO.PSYCHPN ---
Subjective Subjective Date of Service: 08/08/22 Reason For Visit: Schizophrenia Interim History: pt seen in her bedroom, lying supine in bed, rousable to voice. states she is feeling all right. no requests or complaints. per staff, experiencing paranoid delusions. CP has been worked up. taking meds, sleeping. Mental Status Exam Mental Status Exam Patient Appearance: Appropriate Patient Orientation: Person and Situation Level of Consciousness: Awake and Appropriate Patient Behavior: Guarded and Passive Mood Description: Withdrawn Affect Description: Constricted Patient Cognition Impaired: Yes Ability to Follow Directions: Good Speech Pattern: Clear Hallucinations: None Delusions: Not Present Thought Process: Distracted Thought Content: positive for Circumstantial Judgement: Fair Diagnostics Vital Signs (24Hr): Vital Signs - 24 hr 08/07/22 18:00 08/08/22 06:00 Temperature 96.7 F L 97.5 F Pulse Rate 90 89 Respiratory Rate 17 17 Blood Pressure 115/55 L 116/58 L Pulse Oximetry 96 98 Oxygen Delivery Method Room Air Room Air BMI result Body Mass Index 22.1 Labs 08/08/22 06:54 08/06/22 08:15 Labs: Laboratory Results - last 48 hr 08/08/22 06:54 WBC 3.9 L RBC 3.97 L Hgb 11.9 L Hct 36.8 L MCV 92.7 MCH 30.0 MCHC 32.3 RDW 13.6 Plt Count 148 L MPV 10.9 Absolute Nucleated RBC 0.000 Nucleated RBC % (auto) 0.0 Medications Medications Current Medications Acetaminophen (Acetaminophen 325 Mg Tablet) 650 mg PO Q6H PRN PRN Reason: Headache/Pain Mild Scale (1-3) Last Admin: 08/06/22 05:32 Dose: 650 mg Al Hydroxide/Mg Hydroxide (Magnesium Hydrox/Alum Hydrox 30 Ml Oral.Susp) 30 ml PO Q6H PRN PRN Reason: Heartburn/Nausea Divalproex Sodium (Divalproex Sodium 250 Mg Tablet.Dr) 750 mg PO BID [facility] Last Admin: 08/08/22 09:37 Dose: 750 mg Enoxaparin Sodium (Enoxaparin Sodium 60 Mg/0.6 Ml Syringe) 60 mg SUBCUT Q12H [facility] Last Admin: 08/08/22 09:39 Dose: 60 mg Hydroxyzine HCl (Hydroxyzine Hcl 25 Mg Tablet) 25 mg PO Q6H PRN PRN Reason: Anxiety Levothyroxine Sodium (Levothyroxine Sodium 150 Mcg Tablet) 150 mcg PO DAILY@0600 [facility] Last Admin: 08/08/22 06:30 Dose: 150 mcg Magnesium Hydroxide (Milk Of Magnesia 30 Ml Oral.Susp) 30 ml PO DAILY PRN PRN Reason: Constipation Magnesium Oxide (Magnesium Oxide 400 Mg Tablet) 400 mg PO DAILY [facility] Last Admin: 08/08/22 09:37 Dose: 400 mg Omeprazole (Omeprazole 20 Mg Capsule.Dr) 20 mg PO DAILY@0630 [facility] Last Admin: 08/08/22 06:30 Dose: 20 mg Phenytoin (Phenytoin Chewable 50 Mg Tab.Chew) 200 mg PO BID [facility] Last Admin: 08/08/22 09:36 Dose: 200 mg Risperidone (Risperidone 0.5 Mg Tablet) 0.5 mg PO BID [facility] Last Admin: 08/08/22 09:37 Dose: 0.5 mg Trazodone HCl (Trazodone Hcl 50 Mg Tablet) 50 mg PO BEDTIME PRN PRN Reason: Insomnia Allergies Allergies Allergy/AdvReac Type Severity Reaction Status Date / Time codeine Allergy Unknown Unknown Verified 04/09/22 12:46 lactase Allergy Unknown Unknown Verified 04/09/22 12:46 rofecoxib Allergy Unknown Unknown Verified 04/09/22 12:46 tramadol Allergy Unknown Unknown Verified 04/09/22 12:46 chlorpromazine Allergy Unknown Verified 08/06/22 09:17 tranquliziers Allergy Unknown Unknown Uncoded 04/09/22 12:46 Assessment & Plan Assessment & Plan (1) Osteoporosis: Status: Acute Code(s): M81.0 - Age-related osteoporosis without current pathological fracture (2) Seizure disorder: Status: Acute Code(s): G40.909 - Epilepsy, unspecified, not intractable, without status epilepticus (3) Unspecified psychosis: Status: Acute Code(s): F29 - Unspecified psychosis not due to a substance or known physiological condition Plan The patient is an elderly female with a prior history of seizure disorder, dysphoria and recent onset of psychotic symptoms elicited by paranoia against her VNA and disorganized behavior. Plan 1. Gather collateral information. 2. Increase Risperdal up to 0.5 p.o. b.i.d. to target psychosis. 3. Continue with anticonvulsive meds, we will try to get a level in a couple of days. 4. Reassessment with results. 5. The occupational therapist reported that she scored 18/30 on the [place] but her Zechariah test was 4.4. 6. Dilantin and depakote level for August 06. Low 7. Increase Depakote up to 1250 mg/day on August 06. On August 07 we will increased to 1500 mg daily 8. Increase Dilantin up to 200 mg po bid on August 06. 9. New Dilantin and Depakote levels for next Wednesday. 2/: no change in mgmt. stable. Reason for contiued inpatient stay Substantial Risk for: inability to function and rapid decompensation Time Spent With Patient Time: Total time managing care of this patient today ____ minutes.
[2022-08-08 18:00] VITALS: BP 130/58; PULSE 94; RESP 20; TEMP 37; O2SAT 97
[2022-08-09] MEDS: Phenytoin Chewable 50 MG TAB.CHEW 200 MG PO ×2 (10:01→17:07)
[2022-08-09] MEDS: Enoxaparin Sodium 60 MG/0.6 ML SYRINGE SUBCUT ×2 (10:01→21:26)
[2022-08-09] MEDS: Magnesium Oxide 400 MG TABLET PO (10:02)
[2022-08-09] MEDS: Divalproex Sodium 250 MG TABLET.DR 750 MG PO ×2 (10:02→17:07)
[2022-08-09] MEDS: risperiDONE 0.5 MG TABLET PO ×2 (10:02→17:07)
--- NOTE | 2022-08-09 10:27 | P.PNPSI_ITS ---
Subjective Subjective Date of Service: 08/09/22 Reason For Visit: Schizophrenia Interim History: states she does not need anything. appears a bit frustrated, dismissive. per staff, irritable today. med and meal compliant. refused risperidone and VPA yesterday as it was not offered at the time she usually takes them at home. RN request to change evening administration time to 6 pm. Mental Status Exam Mental Status Exam Patient Appearance: Appropriate Patient Orientation: Person and Situation Level of Consciousness: Awake and Appropriate Patient Behavior: Guarded and Passive Mood Description: Withdrawn Affect Description: Constricted Patient Cognition Impaired: Yes Ability to Follow Directions: Good Speech Pattern: Clear Hallucinations: None Delusions: Not Present Thought Process: Distracted Thought Content: positive for Circumstantial Judgement: Fair Diagnostics Vital Signs (24Hr): Vital Signs - 24 hr 08/08/22 18:00 Temperature 98.6 F Pulse Rate 94 Respiratory Rate 20 Blood Pressure 130/58 L Pulse Oximetry 97 Oxygen Delivery Method Room Air BMI result Body Mass Index 22.1 Labs 08/08/22 06:54 08/06/22 08:15 Labs: Laboratory Results - last 48 hr 08/08/22 06:54 WBC 3.9 L RBC 3.97 L Hgb 11.9 L Hct 36.8 L MCV 92.7 MCH 30.0 MCHC 32.3 RDW 13.6 Plt Count 148 L MPV 10.9 Absolute Nucleated RBC 0.000 Nucleated RBC % (auto) 0.0 Medications Medications Current Medications Acetaminophen (Acetaminophen 325 Mg Tablet) 650 mg PO Q6H PRN PRN Reason: Headache/Pain Mild Scale (1-3) Last Admin: 08/06/22 05:32 Dose: 650 mg Al Hydroxide/Mg Hydroxide (Magnesium Hydrox/Alum Hydrox 30 Ml Oral.Susp) 30 ml PO Q6H PRN PRN Reason: Heartburn/Nausea Divalproex Sodium (Divalproex Sodium 250 Mg Tablet.) 750 mg PO BID@0900,1800 [facility] Last Admin: 08/09/22 10:02 Dose: 750 mg Enoxaparin Sodium (Enoxaparin Sodium 60 Mg/0.6 Ml Syringe) 60 mg SUBCUT Q12H [facility] Last Admin: 08/09/22 10:01 Dose: 60 mg Hydroxyzine HCl (Hydroxyzine Hcl 25 Mg Tablet) 25 mg PO Q6H PRN PRN Reason: Anxiety Levothyroxine Sodium (Levothyroxine Sodium 150 Mcg Tablet) 150 mcg PO DAILY@0600 [facility] Last Admin: 08/09/22 06:39 Dose: Not Given Magnesium Hydroxide (Milk Of Magnesia 30 Ml Oral.Susp) 30 ml PO DAILY PRN PRN Reason: Constipation Magnesium Oxide (Magnesium Oxide 400 Mg Tablet) 400 mg PO DAILY [facility] Last Admin: 08/09/22 10:02 Dose: 400 mg Omeprazole (Omeprazole 20 Mg Capsule.Dr) 20 mg PO DAILY@0630 [facility] Last Admin: 08/09/22 06:39 Dose: Not Given Phenytoin (Phenytoin Chewable 50 Mg Tab.Chew) 200 mg PO BID@0900,1800 [facility] Last Admin: 08/09/22 10:01 Dose: 200 mg Risperidone (Risperidone 0.5 Mg Tablet) 0.5 mg PO BID@0900,1800 [facility] Last Admin: 08/09/22 10:02 Dose: 0.5 mg Trazodone HCl (Trazodone Hcl 50 Mg Tablet) 50 mg PO BEDTIME PRN PRN Reason: Insomnia Allergies Allergies Allergy/AdvReac Type Severity Reaction Status Date / Time codeine Allergy Unknown Unknown Verified 04/09/22 12:46 lactase Allergy Unknown Unknown Verified 04/09/22 12:46 rofecoxib Allergy Unknown Unknown Verified 04/09/22 12:46 tramadol Allergy Unknown Unknown Verified 04/09/22 12:46 chlorpromazine Allergy Unknown Verified 08/06/22 09:17 tranquliziers Allergy Unknown Unknown Uncoded 04/09/22 12:46 Assessment & Plan Assessment & Plan (1) Osteoporosis: Status: Acute Code(s): M81.0 - Age-related osteoporosis without current pathological fracture (2) Seizure disorder: Status: Acute Code(s): G40.909 - Epilepsy, unspecified, not intractable, without status epilepticus (3) Unspecified psychosis: Status: Acute Code(s): F29 - Unspecified psychosis not due to a substance or known physiological condition Plan The patient is an elderly female with a prior history of seizure disorder, dysphoria and recent onset of psychotic symptoms elicited by paranoia against her VNA and disorganized behavior. Plan 1. Gather collateral information. 2. Increase Risperdal up to 0.5 p.o. b.i.d. to target psychosis. 3. Continue with anticonvulsive meds, we will try to get a level in a couple of days. 4. Reassessment with results. 5. The occupational therapist reported that she scored 18/30 on the [place] but her Zechariah test was 4.4. 6. Dilantin and depakote level for August 06. Low 7. Increase Depakote up to 1250 mg/day on August 06. On August 07 we will increased to 1500 mg daily 8. Increase Dilantin up to 200 mg po bid on August 06. 9. New Dilantin and Depakote levels for next Wednesday. 2/: no change in mgmt. stable. 08/09: change evening medication administration time to 6 pm per nursing request, in order to increase compliance. otherwise no change in presentation. Reason for contiued inpatient stay Substantial Risk for: inability to function and rapid decompensation Time Spent With Patient Time: Total time managing care of this patient today ____ minutes.
[2022-08-09 18:00] VITALS: BP 107/55; PULSE 85; RESP 16; TEMP 36.2; O2SAT 97
[2022-08-10] MEDS: Omeprazole 20 MG CAPSULE.DR PO (04:41)
[2022-08-10] MEDS: Levothyroxine Sodium 150 MCG TABLET PO (04:41)
--- NOTE | 2022-08-10 11:59 | HO.PSYCHPN ---
Subjective Subjective Date of Service: 08/10/22 Reason For Visit: Schizophrenia Subjective Notes: Conditional Voluntary Interim History: The nursing staff reported the patient today in the morning was very angry in the breakfast refused to have any meals. She had been compliant with treatment. The clinical social worker reported that on Wednesday she contact [facility] and apparently she has lost several items such as her social security card her glasses and her telephone. On interview the patient denies psychotic symptoms but she is guarded. Mental Status Exam Mental Status Exam Patient Appearance: Well Grooomed and Appropriate Patient Orientation: Person and Situation Level of Consciousness: Awake Patient Behavior: Dependent and Cooperative Mood Description: Calm and Withdrawn Affect Description: Constricted Patient Cognition Impaired: Yes Ability to Follow Directions: Good Speech Pattern: Clear Hallucinations: None Delusions: Paranoid Ideation Thought Process: Distracted and Linear Thought Content: positive for Circumstantial Judgement: Fair Diagnostics Vital Signs (24Hr): Vital Signs - 24 hr 08/09/22 18:00 Temperature 97.2 F Pulse Rate 85 Respiratory Rate 16 Blood Pressure 107/55 L Pulse Oximetry 97 Oxygen Delivery Method Room Air BMI result Body Mass Index 22.1 Labs 08/08/22 06:54 08/06/22 08:15 Medications Medications Current Medications Acetaminophen (Acetaminophen 325 Mg Tablet) 650 mg PO Q6H PRN PRN Reason: Headache/Pain Mild Scale (1-3) Last Admin: 08/06/22 05:32 Dose: 650 mg Al Hydroxide/Mg Hydroxide (Magnesium Hydrox/Alum Hydrox 30 Ml Oral.Susp) 30 ml PO Q6H PRN PRN Reason: Heartburn/Nausea Divalproex Sodium (Divalproex Sodium 250 Mg Tablet.) 750 mg PO BID@0900,1800 [facility] Last Admin: 08/09/22 17:07 Dose: 750 mg Enoxaparin Sodium (Enoxaparin Sodium 60 Mg/0.6 Ml Syringe) 60 mg SUBCUT Q12H [facility] Last Admin: 08/09/22 21:26 Dose: 60 mg Hydroxyzine HCl (Hydroxyzine Hcl 25 Mg Tablet) 25 mg PO Q6H PRN PRN Reason: Anxiety Levothyroxine Sodium (Levothyroxine Sodium 150 Mcg Tablet) 150 mcg PO DAILY@0600 [facility] Last Admin: 08/10/22 04:41 Dose: 150 mcg Magnesium Hydroxide (Milk Of Magnesia 30 Ml Oral.Susp) 30 ml PO DAILY PRN PRN Reason: Constipation Magnesium Oxide (Magnesium Oxide 400 Mg Tablet) 400 mg PO DAILY [facility] Last Admin: 08/09/22 10:02 Dose: 400 mg Omeprazole (Omeprazole 20 Mg Capsule.Dr) 20 mg PO DAILY@0630 [facility] Last Admin: 08/10/22 04:41 Dose: 20 mg Phenytoin (Phenytoin Chewable 50 Mg Tab.Chew) 200 mg PO BID@0900,1800 [facility] Last Admin: 08/09/22 17:07 Dose: 200 mg Risperidone (Risperidone 0.5 Mg Tablet) 0.5 mg PO BID@0900,1800 [facility] Last Admin: 08/09/22 17:07 Dose: 0.5 mg Trazodone HCl (Trazodone Hcl 50 Mg Tablet) 50 mg PO BEDTIME PRN PRN Reason: Insomnia Allergies Allergies Allergy/AdvReac Type Severity Reaction Status Date / Time codeine Allergy Unknown Unknown Verified 04/09/22 12:46 lactase Allergy Unknown Unknown Verified 04/09/22 12:46 rofecoxib Allergy Unknown Unknown Verified 04/09/22 12:46 tramadol Allergy Unknown Unknown Verified 04/09/22 12:46 chlorpromazine Allergy Unknown Verified 08/06/22 09:17 tranquliziers Allergy Unknown Unknown Uncoded 04/09/22 12:46 Assessment & Plan Assessment & Plan (1) Osteoporosis: Status: Acute Code(s): M81.0 - Age-related osteoporosis without current pathological fracture (2) Seizure disorder: Status: Acute Code(s): G40.909 - Epilepsy, unspecified, not intractable, without status epilepticus (3) Unspecified psychosis: Status: Acute Code(s): F29 - Unspecified psychosis not due to a substance or known physiological condition Plan The patient is an elderly female with a prior history of seizure disorder, dysphoria and recent onset of psychotic symptoms elicited by paranoia against her VNA and disorganized behavior. Plan 1. Gather collateral information. 2. Increase Risperdal up to 0.5 p.o. b.i.d. to target psychosis. 3. Continue with anticonvulsive meds, we will try to get a level in a couple of days. 4. Reassessment with results. 5. The occupational therapist reported that she scored 18/30 on the [place] but her Zechariah test was 4.4. 6. Dilantin and depakote level for August 06. Low 7. Increase Depakote up to 1250 mg/day on August 06. On August 07 we will increased to 1500 mg daily 8. Increase Dilantin up to 200 mg po bid on August 06. 9. New Dilantin and Depakote levels for next Wednesday but it was canceled since she was noncompliant last Wednesday. We will try to repeat blood work tomorrow. Reason for contiued inpatient stay Substantial Risk for: inability to function, rapid decompensation and med/psych decompensation Time Spent With Patient Time: Total time managing care of this patient today __20__ minutes.
[2022-08-10] MEDS: Divalproex Sodium 250 MG TABLET.DR 750 MG PO (17:36)
[2022-08-10] MEDS: Phenytoin Chewable 50 MG TAB.CHEW 200 MG PO (17:37)
[2022-08-10] MEDS: Enoxaparin Sodium 60 MG/0.6 ML SYRINGE SUBCUT (20:20)
[2022-08-11] MEDS: Acetaminophen 325 MG TABLET 650 MG PO (03:28)
[2022-08-11] MEDS: risperiDONE 0.5 MG TABLET PO (10:20)
[2022-08-11] MEDS: Divalproex Sodium 250 MG TABLET.DR 750 MG PO ×2 (10:20→17:54)
[2022-08-11] MEDS: Magnesium Oxide 400 MG TABLET PO (10:21)
[2022-08-11] MEDS: Omeprazole 20 MG CAPSULE.DR PO (10:21)
[2022-08-11] MEDS: Enoxaparin Sodium 60 MG/0.6 ML SYRINGE SUBCUT ×2 (10:21→20:41)
[2022-08-11] MEDS: Phenytoin Chewable 50 MG TAB.CHEW 200 MG PO ×2 (10:21→17:54)
--- NOTE | 2022-08-11 11:44 | HO.PSYCHPN ---
Subjective Subjective Date of Service: 08/11/22 Reason For Visit: Schizophrenia Subjective Notes: Conditional Voluntary Interim History: The nursing staff reported the patient has refused vital signs and medications in the evening. Today in the morning she was out for her breakfast but she had been awake since 04:00 o'clock in the morning. On interview the patient reports that she wants to go home a explained that she needs to be compliant with her medications and we will discharge her tomorrow since there were no safety concerns. Mental Status Exam Mental Status Exam Patient Appearance: Well Grooomed and Appropriate Patient Orientation: Person and Situation Level of Consciousness: Awake Patient Behavior: Guarded and Passive Mood Description: Withdrawn Affect Description: Constricted Patient Cognition Impaired: Yes Ability to Follow Directions: Good Speech Pattern: Clear Hallucinations: None Delusions: Paranoid Ideation Thought Process: Distracted and Slowed Thinking Thought Content: positive for [place] and positive for Circumstantial Judgement: Fair Diagnostics Vital Signs (24Hr): BMI result Body Mass Index 22.1 Labs 08/08/22 06:54 08/06/22 08:15 Medications Medications Current Medications Acetaminophen (Acetaminophen 325 Mg Tablet) 650 mg PO Q6H PRN PRN Reason: Headache/Pain Mild Scale (1-3) Last Admin: 08/11/22 03:28 Dose: 650 mg Al Hydroxide/Mg Hydroxide (Magnesium Hydrox/Alum Hydrox 30 Ml Oral.Susp) 30 ml PO Q6H PRN PRN Reason: Heartburn/Nausea Divalproex Sodium (Divalproex Sodium 250 Mg Tablet.) 750 mg PO BID@0900,1800 [facility] Last Admin: 08/11/22 10:20 Dose: 750 mg Enoxaparin Sodium (Enoxaparin Sodium 60 Mg/0.6 Ml Syringe) 60 mg SUBCUT Q12H [facility] Last Admin: 08/11/22 10:21 Dose: 60 mg Hydroxyzine HCl (Hydroxyzine Hcl 25 Mg Tablet) 25 mg PO Q6H PRN PRN Reason: Anxiety Levothyroxine Sodium (Levothyroxine Sodium 150 Mcg Tablet) 150 mcg PO DAILY@0600 [facility] Last Admin: 08/11/22 10:29 Dose: Not Given Magnesium Hydroxide (Milk Of Magnesia 30 Ml Oral.Susp) 30 ml PO DAILY PRN PRN Reason: Constipation Magnesium Oxide (Magnesium Oxide 400 Mg Tablet) 400 mg PO DAILY [facility] Last Admin: 08/11/22 10:21 Dose: 400 mg Omeprazole (Omeprazole 20 Mg Capsule.Dr) 20 mg PO DAILY@0630 [facility] Last Admin: 08/11/22 10:21 Dose: 20 mg Phenytoin (Phenytoin Chewable 50 Mg Tab.Chew) 200 mg PO BID@0900,1800 [facility] Last Admin: 08/11/22 10:21 Dose: 200 mg Risperidone (Risperidone 0.5 Mg Tablet) 0.5 mg PO BID@0900,1800 [facility] Last Admin: 08/11/22 10:20 Dose: 0.5 mg Trazodone HCl (Trazodone Hcl 50 Mg Tablet) 50 mg PO BEDTIME PRN PRN Reason: Insomnia Allergies Allergies Allergy/AdvReac Type Severity Reaction Status Date / Time codeine Allergy Unknown Unknown Verified 04/09/22 12:46 lactase Allergy Unknown Unknown Verified 04/09/22 12:46 rofecoxib Allergy Unknown Unknown Verified 04/09/22 12:46 tramadol Allergy Unknown Unknown Verified 04/09/22 12:46 chlorpromazine Allergy Unknown Verified 08/06/22 09:17 tranquliziers Allergy Unknown Unknown Uncoded 04/09/22 12:46 Assessment & Plan Assessment & Plan (1) Osteoporosis: Status: Acute Code(s): M81.0 - Age-related osteoporosis without current pathological fracture (2) Seizure disorder: Status: Acute Code(s): G40.909 - Epilepsy, unspecified, not intractable, without status epilepticus (3) Unspecified psychosis: Status: Acute Code(s): F29 - Unspecified psychosis not due to a substance or known physiological condition Plan The patient is an elderly female with a prior history of seizure disorder, dysphoria and recent onset of psychotic symptoms elicited by paranoia against her VNA and disorganized behavior. Plan 1. Gather collateral information. 2. Increase Risperdal up to 0.5 p.o. b.i.d. to target psychosis. 3. Continue with anticonvulsive meds, we will try to get a level in a couple of days. 4. Reassessment with results. 5. The occupational therapist reported that she scored 18/30 on the [place] but her Zechariah test was 4.4. 6. Dilantin and depakote level for August 06. Low 7. Increase Depakote up to 1250 mg/day on August 06. On August 07 we will increased to 1500 mg daily 8. Increase Dilantin up to 200 mg po bid on August 06. 9. New Dilantin and Depakote levels for next Wednesday but it was canceled since she was noncompliant last Wednesday. We will try to repeat blood work tomorrow but again, she had been noncompliant with medications in the last days. Reason for contiued inpatient stay Substantial Risk for: inability to function, rapid decompensation and med/psych decompensation Time Spent With Patient Time: Total time managing care of this patient today __20__ minutes.
[2022-08-11 17:32] LABS: Phenytoin Dilantin 4.1 ug/mL (10.0-20.0)
[2022-08-12] MEDS: Omeprazole 20 MG CAPSULE.DR PO (06:05)
[2022-08-12] MEDS: Levothyroxine Sodium 150 MCG TABLET PO (06:05)
[2022-08-12 07:30] VITALS: BP 120/68; PULSE 87; RESP 16; TEMP 36.8; O2SAT 95
[2022-08-12] MEDS: Phenytoin Chewable 50 MG TAB.CHEW 200 MG PO (08:27)
[2022-08-12] MEDS: risperiDONE 0.5 MG TABLET PO (08:27)
[2022-08-12] MEDS: Magnesium Oxide 400 MG TABLET PO (08:28)
[2022-08-12] MEDS: Divalproex Sodium 250 MG TABLET.DR 750 MG PO (08:28)
[2022-08-12] MEDS: Enoxaparin Sodium 60 MG/0.6 ML SYRINGE SUBCUT (10:04)
--- NOTE | 2022-08-12 10:43 | P.DS_ITS ---
DS: Providers Provider Date of Service: 08/12/22 Date of admission: 08/03/22 19:14 Date of discharge: 08/12/22 Primary care physician: Christian Garcia MD Consults: 08/04/22 01:34 Consult to Hospitalist Routine Consulting Provider: Hospitalist Reason For Exam: hospital to hospital transfere DS: Diagnosis Discharge Diagnosis (1) Osteoporosis: Status: Acute (2) Seizure disorder: Status: Acute (3) Unspecified psychosis: Status: Acute DS: Medications Discharge Medications Home Medications: Home Medications Medication Instructions Recorded Confirmed acetaminophen 500 mg tablet 500 mg PO Q8H 04/09/22 alcohol swabs (Alcohol Pads) 0 pad topical 04/09/22 blood sugar diagnostic (FreeStyle #10 ea 04/09/22 Lite Strips) brimonidine 0.2 % eye drops 0 drp ophthalmic (eye) 04/09/22 brinzolamide 1 % eye 0 drp ophthalmic (eye) 04/09/22 drops,suspension calcium carbonate 600 mg-vitamin 0 tab PO DAILY PRN 04/09/22 D3 10 mcg (400 unit) tablet cholecalciferol (vitamin D3) 25 25 mcg PO DAILY 04/09/22 mcg (1,000 unit) capsule (Vitamin D3) cyanocobalamin (vitamin B-12) 1,000 mcg PO DAILY 04/09/22 1,000 mcg tablet (Vitamin B-12) divalproex 250 mg tablet,delayed 250 mg PO QPM 04/09/22 release divalproex 500 mg tablet,delayed 500 mg PO BID 04/09/22 release enoxaparin 40 mg/0.4 mL mg subcut 04/09/22 subcutaneous syringe esomeprazole magnesium 20 mg 20 mg PO DAILY 04/09/22 capsule,delayed release famotidine 20 mg tablet 20 mg PO DAILY 04/09/22 fluticasone propionate 110 2 puff inhalation BID 04/09/22 mcg/actuation HFA aerosol inhaler (Flovent HFA) gabapentin 100 mg capsule 0 mg PO 04/09/22 lancets 28 gauge (Inject Ease #100 ea 04/09/22 Lancets) latanoprost 0.005 % eye drops 1 drp ophthalmic (eye) BEDTIME 04/09/22 levothyroxine 150 mcg tablet 150 mcg PO DAILY 04/09/22 loperamide 2 mg capsule 2 mg PO DAILY PRN 04/09/22 magnesium oxide 400 mg (241.3 mg 400 mg PO DAILY 04/09/22 magnesium) tablet multivitamin (One Daily 1 tab PO DAILY 04/09/22 Multivitamin tablet) phenytoin 50 mg chewable tablet 150 mg PO BID 04/09/22 risperidone 0.5 mg tablet 0 mg PO 04/09/22 Mental Status Exam Mental Status Exam Patient Appearance: Well Grooomed and Appropriate Patient Orientation: Person and Situation Level of Consciousness: Awake and Appropriate Patient Behavior: Guarded and Passive Mood Description: Constricted Affect Description: Constricted Patient Cognition Impaired: Yes Ability to Follow Directions: Good Speech Pattern: Clear Hallucinations: None Delusions: Paranoid Ideation Thought Process: Distracted and Slowed Thinking Thought Content: positive for [place] and positive for Circumstantial Judgement and Insight: Judgment improved, limited insight. Data Data Completed and Pending Completed studies during hospitalization [Text1]: 08/06/22 08/06/22 08/06/22 08:15 08:15 08:15 WBC 5.0 RBC 4.28 Hgb 12.7 Hct 39.1 MCV 91.4 MCH 29.7 MCHC 32.5 RDW 13.5 Plt Count 180 MPV 10.7 Immature Gran % (Auto) 0.2 Neut % (Auto) 60.3 Lymph % (Auto) 26.7 [place] % (Auto) 12.0 H Eos % (Auto) 0.4 Baso % (Auto) 0.4 Lymph # (Auto) 1.3 [place] # (Auto) 0.6 Eos # (Auto) 0.0 Baso # (Auto) 0.0 Abs Immat Gran (auto) 0.01 Absolute Neuts (auto) 3.0 Absolute Nucleated RBC 0.000 Nucleated RBC % (auto) 0.0 Sodium 136 Potassium 4.5 Chloride 101 Carbon Dioxide 26 Anion Gap 14 BUN 19 H Creatinine 0.64 Estim Creat Clear Calc 96.6 Estimated GFR > 60 Random Glucose 97 Calcium 9.3 Total Bilirubin 0.5 Direct Bilirubin < 0.2 AST 18 ALT 18 Alkaline Phosphatase 88 Total Protein 6.7 Albumin 4.0 Phenytoin 2.3 L* Valproic Acid 26.3 L 08/08/22 08/11/22 06:54 16:50 WBC 3.9 L RBC 3.97 L Hgb 11.9 L Hct 36.8 L MCV 92.7 MCH 30.0 MCHC 32.3 RDW 13.6 Plt Count 148 L MPV 10.9 Immature Gran % (Auto) Neut % (Auto) Lymph % (Auto) [place] % (Auto) Eos % (Auto) Baso % (Auto) Lymph # (Auto) [place] # (Auto) Eos # (Auto) Baso # (Auto) Abs Immat Gran (auto) Absolute Neuts (auto) Absolute Nucleated RBC 0.000 Nucleated RBC % (auto) 0.0 Sodium Potassium Chloride Carbon Dioxide Anion Gap BUN Creatinine Estim Creat Clear Calc Estimated GFR Random Glucose Calcium Total Bilirubin Direct Bilirubin AST ALT Alkaline Phosphatase Total Protein Albumin Phenytoin 4.1 L* Valproic Acid DS: Summary Hospital Course Hospital Course: The patient was admitted for an episode of psychosis, mostly paranoid delusions and the illusion that she Was being robbed by providers in the community. Please see the HPI of the admission note for further details. On admission we did a regular medical workout to rule out delirium. She was started on a very low dose of risperidone 0.5 titrated Up to b.i.d. to target psychosis. Also, since she was very Anxious and impulsive We added a low dose of Depakote. The patient's paranoia and impulsivity resolved, she was able to participate In the group activities. Even though, she asked to be discharged as soon as possible. The occupational therapist did a [place] test And she scored 18/30. But her Zechariah test was over 4.0. She was able to be safe and functional in the community, despite of her cognitive impairment. She also has several ancillary services that the licensed clinical social worker has contacted. Since there were no safety concerns, discharge planning was discussed. Time spent discussing smoking cessation with patient: 3 to 10 minutes Status at Discharge Cognitive/behavioral status at discharge: MOCA 18/30 Functional status at discharge: independent ambulation Overall status at discharge: patient is back to baseline Time Spent with Patient Time attestation: Total time managing care of this patient today __30__ minutes. Time spent: Less than 30 minutes Discharge Plan Discharge Anticipated Discharge Date/Time: 08/12/22 10:49 Patient Disposition: Home Health Service Discharge Diagnosis: Dementia Psychosis Referrals: Dr Ward [facility] [Other] - 08/26/22 10:00 am (Your next psychiatry appointment with Sara Ward is scheduled for 08/26/22 at 10am. This is appointment is telephonic. ) [facility] [Other] - 08/14/22 11:45 am ([facility] Behavioral Health Clinician will provide home visit on 08/14/22 at 11:45 for post discharge follow up. Follow up with your palliative care nurse Socrates as needed. ) [facility] [Other] - 08/12/22 (Your RN Severo at [facility] to resume twice a day nursing visits on 08/12/22. ) Christian Garcia MD [Primary Care Provider] - 08/20/22 3:00 pm (Follow up appointment is scheduled for 08/20/22 at 3:00pm with Dr. Read located in the same office as Dr. Gonzales.) Discharge Medications: New divalproex 250 mg Tablet,Delayed Release (Dr/Ec) 750 mg PO BID@0900,1800 30 Days Qty: 180 0RF phenytoin [Dilantin Infatabs] 50 mg Tablet,Chewable 200 mg PO BID@0900,1800 30 Days Qty: 120 0RF risperidone 0.5 mg Tablet 0.5 mg PO BID@0900,1800 30 Days Qty: 60 0RF magnesium oxide 400 mg (241.3 mg magnesium) Tablet 400 mg PO DAILY Qty: 30 0RF levothyroxine 150 mcg Tablet 150 mcg PO DAILY@0600 30 Days Qty: 30 0RF Continued acetaminophen 500 mg tablet 500 mg PO Q8H Qty: 90 0RF famotidine 20 mg tablet 20 mg PO DAILY 30 Days Qty: 30 0RF fluticasone propionate 110 mcg/actuation HFA aerosol inhaler 2 puff inhalation BID 30 Days Qty: 1 0RF esomeprazole magnesium 20 mg capsule,delayed release(DR/EC) 20 mg PO DAILY 30 Days Qty: 30 0RF cholecalciferol (vitamin D3) [Vitamin D3] 25 mcg (1,000 unit) capsule 25 mcg PO DAILY loperamide 2 mg capsule 2 mg PO DAILY PRN multivitamin [One Daily Multivitamin] Tablet 1 tab PO DAILY cyanocobalamin (vitamin B-12) [Vitamin B-12] 1,000 mcg tablet 1,000 mcg PO DAILY brimonidine 0.2 % drops 0 drp ophthalmic (eye) brinzolamide 1 % drops,suspension 0 drp ophthalmic (eye) latanoprost 0.005 % drops 1 drp ophthalmic (eye) BEDTIME (DME) FreeStyle Lite Strips Strip See Rx Instructions .ROUTE DAILY Qty: 10 Rx Instructions: As directed (DME) lancets [Inject Ease Lancets] 28 gauge misc See Rx Instructions .ROUTE DAILY Qty: 100 Rx Instructions: As directed Changed alcohol swabs Pads, Medicated 1 pad topical DAILY 30 Days Qty: 30 0RF enoxaparin 40 mg/0.4 mL syringe 60 mg subcut DAILY 15 Days Qty: 9 0RF calcium carbonate-vitamin D3 600 mg-10 mcg (400 unit) tablet 1 tab PO DAILY 30 Days Qty: 30 0RF Discontinued magnesium oxide 400 mg (241.3 mg magnesium) tablet 400 mg PO DAILY divalproex 250 mg tablet,delayed release (DR/EC) 250 mg PO QPM gabapentin 100 mg capsule 0 mg PO divalproex 500 mg tablet,delayed release (DR/EC) 500 mg PO BID risperidone 0.5 mg tablet 0 mg PO levothyroxine 150 mcg tablet 150 mcg PO DAILY phenytoin 50 mg tablet,chewable 150 mg PO BID Discharge Orders: Discharge Order (Routine); Ordered 08/12/22 Ordered By: Pedro Pablo Reyes Diet: Advance to usual diet Activity on Discharge: As tolerated Stand Alone Forms: Patient Portal Discharge page Care Plan Goals: Care plan goals achieved in this admission. Health Concerns: Continue outpatient care with regular providers. Plan of Treatment: Continue psychiatric treatment as an outpatient. Assessment: Elderly female with a history of seizure disorder, dementia admitted for psychosis that resolved with Risperdal. No safety concerns at this moment.
--- NOTE | 2022-08-12 11:28 | HO.PSYCHPN ---
Subjective Subjective Reason For Visit: Schizophrenia Diagnostics Vital Signs (24Hr): BMI result Body Mass Index 22.1 Labs 08/08/22 06:54 08/06/22 08:15 Labs: Laboratory Results - last 48 hr 08/11/22 16:50 Phenytoin 4.1 L* Medications Medications Current Medications Acetaminophen (Acetaminophen 325 Mg Tablet) 650 mg PO Q6H PRN PRN Reason: Headache/Pain Mild Scale (1-3) Last Admin: 08/11/22 03:28 Dose: 650 mg Al Hydroxide/Mg Hydroxide (Magnesium Hydrox/Alum Hydrox 30 Ml Oral.Susp) 30 ml PO Q6H PRN PRN Reason: Heartburn/Nausea Divalproex Sodium (Divalproex Sodium 250 Mg Tablet.) 750 mg PO BID@0900,1800 [facility] Last Admin: 08/12/22 08:28 Dose: 750 mg Enoxaparin Sodium (Enoxaparin Sodium 60 Mg/0.6 Ml Syringe) 60 mg SUBCUT Q12H [facility] Last Admin: 08/12/22 10:04 Dose: 60 mg Hydroxyzine HCl (Hydroxyzine Hcl 25 Mg Tablet) 25 mg PO Q6H PRN PRN Reason: Anxiety Levothyroxine Sodium (Levothyroxine Sodium 150 Mcg Tablet) 150 mcg PO DAILY@0600 [facility] Last Admin: 08/12/22 06:05 Dose: 150 mcg Magnesium Hydroxide (Milk Of Magnesia 30 Ml Oral.Susp) 30 ml PO DAILY PRN PRN Reason: Constipation Magnesium Oxide (Magnesium Oxide 400 Mg Tablet) 400 mg PO DAILY [facility] Last Admin: 08/12/22 08:28 Dose: 400 mg Omeprazole (Omeprazole 20 Mg Capsule.) 20 mg PO DAILY@0630 [facility] Last Admin: 08/12/22 06:05 Dose: 20 mg Phenytoin (Phenytoin Chewable 50 Mg Tab.Chew) 200 mg PO BID@0900,1800 [facility] Last Admin: 08/12/22 08:27 Dose: 200 mg Risperidone (Risperidone 0.5 Mg Tablet) 0.5 mg PO BID@0900,1800 [facility] Last Admin: 08/12/22 08:27 Dose: 0.5 mg Trazodone HCl (Trazodone Hcl 50 Mg Tablet) 50 mg PO BEDTIME PRN PRN Reason: Insomnia Allergies Allergies Allergy/AdvReac Type Severity Reaction Status Date / Time codeine Allergy Unknown Unknown Verified 04/09/22 12:46 lactase Allergy Unknown Unknown Verified 04/09/22 12:46 rofecoxib Allergy Unknown Unknown Verified 04/09/22 12:46 tramadol Allergy Unknown Unknown Verified 04/09/22 12:46 chlorpromazine Allergy Unknown Verified 08/06/22 09:17 tranquliziers Allergy Unknown Unknown Uncoded 04/09/22 12:46 Assessment & Plan Assessment & Plan (1) Osteoporosis: Status: Acute Code(s): M81.0 - Age-related osteoporosis without current pathological fracture (2) Seizure disorder: Status: Acute Code(s): G40.909 - Epilepsy, unspecified, not intractable, without status epilepticus (3) Unspecified psychosis: Status: Acute Code(s): F29 - Unspecified psychosis not due to a substance or known physiological condition Plan The patient is an elderly female with a prior history of seizure disorder, dysphoria and recent onset of psychotic symptoms elicited by paranoia against her VNA and disorganized behavior. Plan 1. Gather collateral information. 2. Increase Risperdal up to 0.5 p.o. b.i.d. to target psychosis. 3. Continue with anticonvulsive meds, we will try to get a level in a couple of days. 4. Reassessment with results. 5. The occupational therapist reported that she scored 18/30 on the [place] but her [place]char[place] test was 4.4. 6. Dilantin and depakote level for August 06. Low 7. Increase Depakote up to 1250 mg/day on August 06. On August 07 we will increased to 1500 mg daily 8. Increase Dilantin up to 200 mg po bid on August 06. 9. New Dilantin and Depakote levels for next Wednesday but it was canceled since she was noncompliant last Wednesday. We will try to repeat blood work tomorrow but again, she had been noncompliant with medications in the last days. Time Spent With Patient Time: Total time managing care of this patient today ____ minutes.
== END 2022-08-12 11:35 | disposition home health service (06) | DRG 884 ==
PROVIDERS: Clinical Nurse Specialist Psychiatric/Mental Health, Adult; Admitting Provider Psychiatry & Neurology Psychiatry; PCP Family Medicine; Visit Provider Psychiatry & Neurology Psychiatry
DX: F03.92 Unspecified dementia, unspecified severity, with psychotic disturbance (principal); M81.0 Age-related osteoporosis without current pathological fracture; G40.909 Epilepsy, unspecified, not intractable, without status epilepticus; Z88.5 Allergy status to narcotic agent; Z88.8 Allergy status to other drugs, medicaments and biological substances; Z79.51 Long term (current) use of inhaled steroids; Z79.890 Hormone replacement therapy; Z79.899 Other long term (current) drug therapy
CPT/HCPCS: 36415; 80048; 80061; 80076; 80164; 80185; 82565; 82607; 82746; 83036; 83735; 84439; 84443; 85025; 85027; 85610; 85730; 93005; J1650

== ENCOUNTER 2022-08-12 20:54 | Emergency (ER) | payer OTHER, SELFPAY ==
[2022-08-12 20:59] VITALS: BP 135/69; BP 138/70; PULSE 77; PULSE 85; RESP 21; TEMP 36.8; O2SAT 98; O2SAT 99; BMI 24.6
[2022-08-12 21:06] VITALS: BP 125/59; PULSE 81; RESP 26; TEMP 36.8; O2SAT 99
--- NOTE | 2022-08-12 23:23 | PC.NURSE ---
Pt FORREST from [facility], pt is coughing a lot however not coughing up anything at this time. Pt changed over and purewick placed for incontinence
--- NOTE | 2022-08-12 23:34 | PC.NURSE ---
This RN entered pts room, found pt stripping out of all clothing reporting that she needs to do this and has no choice . This RN attempted to help pt back into clothes but she declined
--- NOTE | 2022-08-12 23:41 | ED.GENADULT ---
HPI - General Adult General Chief complaint: General Medical Stated complaint: Not feeling Well Time Seen by Provider: 08/12/22 23:29 Source: patient, EMS and old records reviewed Mode of arrival: EMS Limitations: no limitations History of Present Illness HPI narrative: Patient 81 years old with history of paranoid delusions illusions just discharge from psych floor today at 11:00 came back by EMS as been paranoid about mouse traps placed near her apartment patient refused to talk much refusing the lab workup and evaluation are answering only few questions Related Data Home Medications Medication Instructions Recorded Confirmed blood sugar diagnostic (FreeStyle #10 ea 04/09/22 Lite Strips) brimonidine 0.2 % eye drops 0 drp ophthalmic (eye) 04/09/22 brinzolamide 1 % eye 0 drp ophthalmic (eye) 04/09/22 drops,suspension cholecalciferol (vitamin D3) 25 25 mcg PO DAILY 04/09/22 mcg (1,000 unit) capsule (Vitamin D3) cyanocobalamin (vitamin B-12) 1,000 mcg PO DAILY 04/09/22 1,000 mcg tablet (Vitamin B-12) lancets 28 gauge (Inject Ease #100 ea 04/09/22 Lancets) latanoprost 0.005 % eye drops 1 drp ophthalmic (eye) BEDTIME 04/09/22 loperamide 2 mg capsule 2 mg PO DAILY PRN 04/09/22 multivitamin (One Daily 1 tab PO DAILY 04/09/22 Multivitamin tablet) Previous Rx's Medication Instructions Recorded acetaminophen 500 mg tablet 500 mg PO Q8H #90 tabs 08/12/22 alcohol swabs 1 pad topical DAILY 30 days #30 ea 08/12/22 calcium carbonate 600 mg-vitamin 1 tab PO DAILY 30 days #30 tabs 08/12/22 D3 10 mcg (400 unit) tablet divalproex 250 mg tablet,delayed 750 mg PO BID@0900,1800 30 days 08/12/22 release #180 tabs enoxaparin 40 mg/0.4 mL 60 mg (0.6 mL) subcut DAILY 15 08/12/22 subcutaneous syringe days #9 mL esomeprazole magnesium 20 mg 20 mg PO DAILY 30 days #30 caps 08/12/22 capsule,delayed release famotidine 20 mg tablet 20 mg PO DAILY 30 days #30 tabs 02/08/23 fluticasone propionate 110 2 puff inhalation BID 30 days #1 g 08/12/22 mcg/actuation HFA aerosol inhaler levothyroxine 150 mcg tablet 150 mcg PO DAILY@0600 30 days #30 08/12/22 tabs magnesium oxide 400 mg (241.3 mg 400 mg PO DAILY #30 tabs 08/12/22 magnesium) tablet phenytoin 50 mg chewable tablet 200 mg PO BID@0900,1800 30 days 08/12/22 (Dilantin Infatabs) #120 tabs risperidone 0.5 mg tablet 0.5 mg PO BID@0900,1800 30 days 08/12/22 #60 tabs Allergies Allergy/AdvReac Type Severity Reaction Status Date / Time codeine Allergy Unknown Unknown Verified 04/09/22 12:46 lactase Allergy Unknown Unknown Verified 04/09/22 12:46 rofecoxib Allergy Unknown Unknown Verified 04/09/22 12:46 tramadol Allergy Unknown Unknown Verified 04/09/22 12:46 chlorpromazine Allergy Unknown Verified 08/06/22 09:17 tranquliziers Allergy Unknown Unknown Uncoded 04/09/22 12:46 Review of Systems Review of Systems: Yes all other systems are reviewed and are negative PMFSH Past Medical History Medical History Osteoporosis Surgical History History of appendectomy History of colonoscopy History of surgery Hx of cholecystectomy Family History Family History Mother Glaucoma Social History Social History Household Members: None Housing: Apartment Do you presently have visiting nurse or other home services: Yes Alcohol intake: never Patient Tobacco Use Status: Never used Tobacco Smoked in Last 30 Days: No Use of substances other than those prescribed or required for medical reasons: No Advance Directives: No Advance Directives Information Provided: Yes Sexual orientation: Straight/Heterosexual Physical Exam ED Vital Signs: Vital Signs - 24 hr 08/12/22 20:59 08/12/22 21:06 08/12/22 23:52 Temperature 98.2 F 98.2 F Pulse Rate 77 81 Respiratory Rate 21 H 26 H 14 Blood Pressure 135/69 125/59 L Pulse Oximetry 98 99 Oxygen Delivery Method Room Air Room Air 08/13/22 00:00 08/13/22 04:16 Temperature Pulse Rate 75 Respiratory Rate 15 15 Blood Pressure 118/63 Pulse Oximetry 97 Oxygen Delivery Method Room Air BMI result Body Mass Index 24.6 Appearance: Alert. And awake. No acute distress. Thin built Eyes: PERRLA, No Nystagmus ENT: Pharynx normal. Oral Mucosa moist Neck: Normal inspection. Neck supple. CVS: Normal heart rate and rhythm. Pulses normal. Respiratory: No respiratory distress. Equal air entry bilateral, no wheezing/rales/rhonchi Abdomen: Soft and nontender. Bowel sounds are present, no mass palpable, no CVA tenderness Skin: Skin warm and dry. Normal skin color. Normal skin turgor. Extremities: No lower extremity edema. No calf tenderness psych: Paranoid+ refusing to answer other questions Neuro: Alert and awake No motor deficit. No sensory deficit.No cerebellar signs , cranial nerves II-XII intact Medical Decision Making Medical Decision Making [facility] Narrative: Patient with paranoid schizophrenia just discharged from psych floor came back with similar presentation. Will consult care team Lab Data MDM Lab Attestation statement: I reviewed the patient's lab results. 08/13/22 04:11 08/13/22 04:11 Labs: Lab Results 08/13/22 08/13/22 08/13/22 Range/Units 00:49 04:11 04:11 WBC 4.3 L (4.8-10.8) X10*3/uL RBC 3.96 L (4.20-5.50) X10*6/uL Hgb 11.8 L (12.0-16.0) g/dl Hct 35.4 L (37.0-47.0) % MCV 89.4 (80.0-98.0) fL MCH 29.8 (27.0-33.0) pg MCHC 33.3 (31.0-35.0) g/dl RDW 13.8 (11.0-16.0) % Plt Count 147 L (160-400) X10*3/uL MPV 10.3 (9.4-12.3) fL Immature Gran % (Auto) 0.2 (0.0-0.4) % Neut % (Auto) 57.8 (45-73) % Lymph % (Auto) 29.4 (20-40) % [place] % (Auto) 11.2 H (2-11) % Eos % (Auto) 0.9 (0-4) % Baso % (Auto) 0.5 (0-2) % Lymph # (Auto) 1.3 (1.2-4.9) X10*3/uL [place] # (Auto) 0.5 (0.1-1.2) X10*3/uL Eos # (Auto) 0.0 (0.0-0.4) X10*3/uL Baso # (Auto) 0.0 (0.0-0.2) X10*3/uL Abs Immat Gran (auto) 0.01 (0.00-0.03) X10*3/uL Absolute Neuts (auto) 2.5 (2.0-8.3) x10*3/uL Absolute Nucleated RBC 0.000 (0.0-0.012) X10*3/uL Nucleated RBC % (auto) 0.0 (0.0-0.2) /100WBC Sodium 138 (135-145) mmol/L Potassium 4.1 (3.3-5.1) mmol/L Chloride 104 (96-108) mmol/L Carbon Dioxide 25 (22-29) mmol/L Anion Gap 13 (12-20) BUN 11 (9-16) mg/dL Creatinine 0.54 (0.5-1.4) mg/dL Estim Creat Clear Calc 70.3 Estimated GFR > 60 Random Glucose 94 (60-115) mg/dL Calcium 9.0 (8.4-10.2) mg/dL Total Bilirubin 0.3 (0.0-1.0) mg/dL AST 9 (5-31) U/L ALT 10 (0-31) U/L Alkaline Phosphatase 86 (39-117) U/L Total Protein 5.7 L (6.5-8.0) g/dL Albumin 3.5 (3.5-5.0) g/dL Influenza Type A (PCR) NEGATIVE (Negative) Influenza Type B (PCR) NEGATIVE (Negative) RSV RNA Qual (PCR) NEGATIVE (Negative) SARS-CoV-2 RNA (RT-PCR) NEGATIVE (Negative) Discharge Plan Discharge Clinical Impression: Paranoid schizophrenia Patient Disposition: Still a Patient Prescriptions: No Action divalproex 250 mg Tablet,Delayed Release (Dr/Ec) 750 mg PO BID@0900,1800 30 Days Qty: 180 0RF phenytoin [Dilantin Infatabs] 50 mg Tablet,Chewable 200 mg PO BID@0900,1800 30 Days Qty: 120 0RF risperidone 0.5 mg Tablet 0.5 mg PO BID@0900,1800 30 Days Qty: 60 0RF magnesium oxide 400 mg (241.3 mg magnesium) Tablet 400 mg PO DAILY Qty: 30 0RF levothyroxine 150 mcg Tablet 150 mcg PO DAILY@0600 30 Days Qty: 30 0RF acetaminophen 500 mg tablet 500 mg PO Q8H Qty: 90 0RF famotidine 20 mg tablet 20 mg PO DAILY 30 Days Qty: 30 0RF alcohol swabs Pads, Medicated 1 pad topical DAILY 30 Days Qty: 30 0RF fluticasone propionate 110 mcg/actuation HFA aerosol inhaler 2 puff inhalation BID 30 Days Qty: 1 0RF esomeprazole magnesium 20 mg capsule,delayed release(DR/EC) 20 mg PO DAILY 30 Days Qty: 30 0RF enoxaparin 40 mg/0.4 mL syringe 60 mg subcut DAILY 15 Days Qty: 9 0RF calcium carbonate-vitamin D3 600 mg-10 mcg (400 unit) tablet 1 tab PO DAILY 30 Days Qty: 30 0RF cholecalciferol (vitamin D3) [Vitamin D3] 25 mcg (1,000 unit) capsule 25 mcg PO DAILY loperamide 2 mg capsule 2 mg PO DAILY PRN multivitamin [One Daily Multivitamin] Tablet 1 tab PO DAILY cyanocobalamin (vitamin B-12) [Vitamin B-12] 1,000 mcg tablet 1,000 mcg PO DAILY brimonidine 0.2 % drops 0 drp ophthalmic (eye) brinzolamide 1 % drops,suspension 0 drp ophthalmic (eye) latanoprost 0.005 % drops 1 drp ophthalmic (eye) BEDTIME (DME) FreeStyle Lite Strips Strip See Rx Instructions .ROUTE DAILY Qty: 10 Rx Instructions: As directed (DME) lancets [Inject Ease Lancets] 28 gauge misc See Rx Instructions .ROUTE DAILY Qty: 100 Rx Instructions: As directed
[2022-08-12 23:52] VITALS: RESP 14
--- NOTE | 2022-08-12 23:55 | PC.NURSE ---
pt refusing vital signs at this time
[2022-08-13] VITALS: RESP 15
--- NOTE | 2022-08-13 01:04 | PC.NURSE ---
pt refusing to put clothes on, this RN attempted to encourage pt to put a gown on once again however pt began yelling at this RN stating you bitch I am not putting that on . aware at this time
[2022-08-13 01:29] LABS: Influenza A PCR NEGATIVE (Negative); Influenza B PCR NEGATIVE (Negative); Resp Syncy Virus RNA Qual PCR NEGATIVE (Negative); SARS COV2 PCR INHOUSE NEGATIVE (Negative)
--- NOTE | 2022-08-13 03:54 | MHC.EDTECH ---
PT refused bloodwork and Refused help with ADL's
[2022-08-13 04:16] VITALS: BP 118/63; PULSE 75; RESP 15; O2SAT 97
[2022-08-13 04:17] LABS: MANUAL DIFF FLAG NO
[2022-08-13 04:18] LABS: Basophils Percent Auto 0.5 % (0-2); Eosinophils Percent Auto 0.9 % (0-4); Hematocrit 35.4 % (37.0-47.0); Hemoglobin 11.8 g/dl (12.0-16.0); Imm Gran Abs Auto 0.01 X10*3/uL (0.00-0.03); Imm Gran Pct Auto 0.2 % (0.0-0.4); Lymphocytes Absolute Auto 1.3 X10*3/uL (1.2-4.9); Lymphocytes Percent Auto 29.4 % (20-40); Mean Corpuscular HGB Conc 33.3 g/dl (31.0-35.0); Mean Corpuscular Hemoglobin 29.8 pg (27.0-33.0); Mean Corpuscular Volume 89.4 fL (80.0-98.0); Mean Platelet Volume 10.3 fL (9.4-12.3); Monocytes Absolute Auto 0.5 X10*3/uL (0.1-1.2); Monocytes Percent Auto 11.2 % (2-11); Neutrophils Absolute Auto 2.5 x10*3/uL (2.0-8.3); Neutrophils Percent Auto 57.8 % (45-73); Platelet Count 147 X10*3/uL (160-400); Red Blood Count 3.96 X10*6/uL (4.20-5.50); Red Cell Distribution Width 13.8 % (11.0-16.0); White Blood Count 4.3 X10*3/uL (4.8-10.8)
[2022-08-13 05:17] LABS: Alanine Aminotransferase 10 U/L (0-31); Albumin Level 3.5 g/dL (3.5-5.0); Alkaline Phosphatase 86 U/L (39-117); Anion Gap 13 (12-20); Aspartate Amino Transferase 9 U/L (5-31); Bilirubin Total 0.3 mg/dL (0.0-1.0); Blood Urea Nitrogen 11 mg/dL (9-16); Carbon Dioxide 25 mmol/L (22-29); Chloride 104 mmol/L (96-108); Creatinine Clr Calc Pharmacy 70.3; Estimated Glomerular Filt Rate > 60; Glucose Random 94 mg/dL (60-115); Potassium 4.1 mmol/L (3.3-5.1); Sodium 138 mmol/L (135-145); Total Protein 5.7 g/dL (6.5-8.0)
[2022-08-13 06:11] VITALS: RESP 16
--- NOTE | 2022-08-13 07:36 | PC.NURSE ---
nurse to nurse report taken from Marialuisa. this rfp writer attempted to reposition pt and get her changed in to the [facility]. pt refusing. pt refusing vitals and refusing to uncover her face. respirations are even and unlabored. pt in no apparent distress at this time.
--- NOTE | 2022-08-13 09:25 | PHA.MEDREC ---
Pharmacy Consult ? Medication Reconciliation Pharmacy has completed the medication reconciliation. Patient just discharged from [facility] 08/12/22 then arrived back in the ER 12 hours later. Med rec completed by discharge summary. Nichole Ren, PharmD
--- NOTE | 2022-08-13 09:38 | PC.NURSE ---
pt up to the bathroom, attempted to collect urine sample but it became contaminated with stool. pt requesting food. diabetic tray ordered. pt refused to have her POC taken, she stated my sugar is fine I can tell I don't need that . LUIS Davies made aware of attempt to collect urine, refused vitals and POC
--- NOTE | 2022-08-13 10:20 | PC.NURSE ---
CARE team at bedside
[2022-08-13 10:27] VITALS: BP 121/57; PULSE 91; RESP 16; O2SAT 97
--- NOTE | 2022-08-13 11:58 | MHC.CARE ---
Seen by CARE team, paranoid delusions are baseline and pt was discharged from inpatient level of care yesterday 08/12/22. CARE team referred to CM to explore possible long-term care options and consulted on case with Haritha.
[2022-08-13 15:31] LABS: Appearance Urine Clear; Color Urine Yellow; Glucose Urine UA Negative (Negative); Leukocyte Esterase Urine Negative (Negative); Nitrite Urine Negative (Negative); UMIC TRIGGER UACC YES; Urine Blood Trace (Negative); Urine Ketones Negative (Negative); Urine Protein Negative (Neg-Trace)
[2022-08-13 15:33] LABS: Amphetamine Screen Urine Not Detected (Not Detect); Barbiturates, Urine Not Detected (Not Detect); Benzodiazepines Screen Urine Not Detected (Not Detect); Cannabinoid Screen Urine Not Detected (Not Detect); Cocaine Screen Urine Not Detected (Not Detect); Fentanyl, urine Not Detected (Not Detect); Opiate Screen Urine Not Detected (Not Detect); Phencyclidine Screen Urine Not Detected (Not Detect)
[2022-08-13 15:36] LABS: Bacteria Urine None Seen (None Seen); Hyaline Casts Urine 0-2 /LPF (0-2); Squamous Epithelial Cell Urine 0-2 /HPF (0-2); WBC Urine 0-5 /HPF (0-5)
--- NOTE | 2022-08-13 16:00 | MHC.EDTECH ---
pt refused 1600 vitals sign ,rn sidney is aware .
--- NOTE | 2022-08-13 16:03 | MHC.CM.ED ---
Rceived case management consult. Patient came to the ER due to not feeling well . Work up essentially negative. Patient cleared by care team. Patient is active with [facility]. public defender made aware of ER visit. Patient is active with [facility] for [facility]. Patient also received 16.5 hours for home health aide help a week. Met with patient in regards to discharge planning. Patient lives alone and reports receiving services at home. Patient feels she can safetly return home. [facility] HAMEED booked for 630pm. [facility] with chart. Patient, Maria Antonia TAPIA, and Garima SMITH aware. Continue to monitor for d/c needs.
[2022-08-13 18:00] VITALS: PULSE 72; RESP 16; TEMP 36.4; O2SAT 98
--- NOTE | 2022-08-13 19:20 | PC.NURSE ---
Pt was picked up by ambulance/chairvan at shift change. Discharge orders were not filed. Pt has been moved to a discharge bed on the tracker, Dr. Reinoso is aware of the situation, Dr. Weinberg comes in at 2100 and he can fix it
== END 2022-08-13 19:20 | disposition home or self-care (01) ==
PROVIDERS: Emergency Provider Internal Medicine; PCP Family Medicine
DX: F20.0 Paranoid schizophrenia (principal); Z20.822 Contact with and (suspected) exposure to COVID-19; Z20.828 Contact with and (suspected) exposure to other viral communicable diseases; Z79.899 Other long term (current) drug therapy
CPT/HCPCS: 0241U; 36415; 80053; 80307; 81001; 85025; 99284; S9485